=== PATIENT | male | born 1950 | race Caucasian/White ===

== ENCOUNTER 2017-07-06 09:28 | Inpatient (IN) | payer MEDICAID, OTHER ==
[~2017-07-06] VITALS: Ht 172.7 cm; Wt 75.1 kg
[2017-07-06] MEDS ORDERED: ALBUTEROL 0.5% (NEB) 2.5 MG/0.5 ML AMP INH STA (09:35)
[2017-07-06] MEDS ORDERED: SOD CHLORIDE 0.9% 1,000 ML IV STA (09:35)
[2017-07-06] MEDS ORDERED: IPRATROPIUM (NEB) 0.5 MG/2.5 ML AMP INH STA (09:35)
[2017-07-06] MEDS ORDERED: METHYLPREDNISOLONE 125 MG INJ IV STA (09:35)
[2017-07-06 09:47] LABS: ABNORMAL IP MESSAGE 1; BASOPHIL # 0.1 10^3/ul (0.0-0.1); BASOPHILS % 0.5 % (0.0-2.0); EOSINOPHILS # 0.2 10^3/ul (0.0-0.5); EOSINOPHILS % 2.1 % (0.0-7.0); HEMATOCRIT 48.1 % (42.0-52.0); HEMOGLOBIN 16.2 g/dl (14.0-18.0); LYMPHOCYTES # 5.9 10^3/ul (0.8-2.9); LYMPHOCYTES % 51.2 % (15.0-51.0); MEAN CORPUSCULAR HGB CONC 33.7 g/dl (32.0-37.0); MEAN CORPUSCULAR VOLUME 109.8 fl (82.0-101.0); MEAN PLATELET VOLUME 9.8 fl (7.4-10.4); MONOCYTES % 8.9 % (0.0-11.0); NEUTROPHIL # 4.3 10^3/ul (1.6-7.5); PLATELET COUNT 312 10^3/UL (140-415); POSITIVE DIFF @See below; RED BLOOD COUNT 4.38 10^6/ul (4.70-6.10); RED CELL DISTRIBUTION WIDTH 12.9 % (11.5-14.5); WHITE BLOOD COUNT 11.6 10^3/ul (4.8-10.8)
[2017-07-06] MEDS ORDERED: LORAZEPAM 2 MG INJ IV ONE (10:00)
[2017-07-06 10:03] LABS: AADO2 Arterial 466.7 mmHg (7.0-24.0); Allen Test ACCEPTAB; Arterial Base Excess -5.6 mmol/L (-3.0-3); Arterial COHb 0.6 % (0.0-3.0); Arterial Fraction of Oxyhgb 97.9 % (93.0-99.0); Arterial HCO3 22.5 mmol/L (22.0-26.0); Arterial MetHb 0.3 % (0.0-1.5); Arterial Total Hemglobin 15.8 g/dl (12.0-18.0); Blood Gas IEPAP 15/5; Blood Gas PS 10; MODE MASK - BIPAP
[2017-07-06 10:04] LABS: INR 1.03; PARTIAL THROMBOPLASTIN TIME 26.4 Sec (25.0-35.0); PROTIME 13.5 Sec (12.2-14.2); PT RATIO 1.1
[2017-07-06] MEDS ORDERED: ONDANSETRON 4 MG INJ IV STA (10:04)
[2017-07-06] MEDS ORDERED: morphine 4 MG/ML VIAL IV STA (10:04)
[2017-07-06] MEDS ORDERED: ASPIRIN 325 MG TAB PO STA (10:04)
[2017-07-06 10:12] LABS: ALBUMIN 3.4 g/dl (3.3-4.9); BILIRUBIN,INDIRECT 0.5 mg/dl (0-1.1); BILIRUBIN,TOTAL 0.5 mg/dl (0.2-1.3); CALCIUM 8.7 mg/dl (8.4-10.2); CREATININE 0.89 mg/dl (0.61-1.24); POTASSIUM 3.3 mmol/L (3.5-5.1); TOTAL PROTEIN 6.8 g/dl (6.1-8.1)
[2017-07-06 10:25] LABS: CK-MB 1.56 ng/ml (0.0-2.4); TROPONIN-I 3.13 ng/ml (0.00-0.12)
--- NOTE | 2017-07-06 10:28 | RADRPT ---
PROCEDURE: XR Chest. CLINICAL INDICATION: Asthma exacerbation . TECHNIQUE: Single frontal chest x-ray. COMPARISON: None. FINDINGS: There is diffuse bilateral interstitial prominence . There is no alveolar infiltrates, edema, or eff usions. Calcific atherosclerosis of the aorta is present. .. The heart is upper limit of normal in size.. The osseous structures are intact. IMPRESSION: Diffuse bilateral interstitial prominence. Differential includes interstitial edema, viral or atypic al pneumonitis, chronic interstitial changes. Recommend follow-up.. RPTAT: GG .Dean Dickens MD, MD Date Time Electronically viewed and signed by .Dean Dickens MD, MD on 07/06/2017 10:27 .L/
[2017-07-06] MEDS ORDERED: METOPROLOL 5 MG INJ IV ONE (11:00)
--- NOTE | 2017-07-06 11:22 | ERA ---
ER Documentation Chief Complaint Date/Time DATE: 07/06/17 TIME: 11:11 Chief Complaint SOB HPI This is a very pleasant 67-year-old male that presents to the emergency department brought in by EMS in severe respiratory distress. The patient indicated his symptoms started several hours prior to arrival progressively started to worsen. The patient does smoke tobacco and has a history of COPD. He has never required intubation in the past. He has had no fevers or shaking or chills. He denies a productive or nonproductive cough. He also indicates he has a history of coronary artery disease and has been told in the past that he will require surgical intervention. EMS indicated that the patient was diaphoretic unable to speak more than several words at a time before becoming short of breath and was placed on CPAP with minimal improvement of his symptoms. He also indicates that for the past 2 days he has been having intermittent left substernal chest pain. The pain does not radiate to the neck or back or jaw. There is no alleviating or exacerbating factors to the chest discomfort. ROS All systems reviewed and are negative except as per history of present illness. Medications Home Meds No Active Prescriptions or Reported Meds Allergies Allergies: Coded Allergies: No Known Allergy (Unverified , 07/06/17) PMhx/Soc Hx Respiratory Disorders: Yes (COPD) Hx Cardiac Disorders: Yes (HX IL) Hx Psychiatric Problems: No Hx Miscellaneous Medical Probl: No Hx Alcohol Use: No Hx Substance Use: No Hx Tobacco Use: Yes Smoking Status: Never smoker Physical Exam Vitals Vital Signs Date Time Temp Pulse Resp B/P Pulse Ox O2 Delivery O2 Flow Rate FiO2 07/06/17 11:06 104 93 28 07/06/17 09:53 Nasal Cannula 07/06/17 09:48 133 100 28 07/06/17 09:36 98.0 140 22 160/110 100 Physical Exam Constitutional:Well-developed. Well-nourished. Patient in severe respiratory distress HEENT:Normocephalic. Atraumatic.Pupils were equal round reactive to light. Moist mucous membranes.No tonsillar exudates. Neck: No nuchal rigidity. No lymphadenopathy. No posterior cervical spine tenderness or step-offs. Respiratory: Patient using accessory muscles of respiration. Unable to speak more than 2 words at a time before becoming short of breath. Decreased breath sounds heard bilaterally. Cardiovascular: Regular rate regular rhythm.No murmurs. No rubs were appreciated.S1, S2 normal. Distal pulses are palpable 2+ bilaterally. GI: Abdomen was soft. Nontender. Non Distended. No pulsatile abdominal masses or bruits. No rebound. No guarding. Bowel sounds were present and normal. Muscle skeletal: Full range of motion of both the upper and lower extremities bilaterally.Normal muscle tone.No assymetrical calf tenderness or swelling. Skin: No petechia, no purpura. No lesions on the palms or the soles of the feet. No maculopapular rash. NEURO: Patient was alert, awake, orientated x3.No facial droop. Gait observed and normal with no ataxia.Speech had regular rate and rhythm. No focal neurological deficits. Result Diagram: 07/06/1793507/06/1736 Results 24 hrs Laboratory Tests Test 07/06/17 09:35 07/06/17 09:36 Blood Gas Specimen Source Blood arterial Arterial Blood Date Drawn 07/06/2017 9:52:10 AM Arterial Blood pH (Temp corrected) 7.239 Arterial Blood pCO2 (Temp correct) 53.9mmhg Arterial Blood pO2 (Temp corrected) 192.4mmHG Arterial Blood HCO3 22.5mmol/L Arterial Blood Base Excess -5.6mmol/L Arterial Blood Oxygen Saturation 98.8mmHG Denis Test ACCEPTAB Arterial Blood Gas Puncture Site Right Radial Arterial Blood Carboxyhemoglobin 0.6% Arterial Blood Methemoglobin 0.3% Blood Gas A-a O2 Differential 466.7mmHg Oxyhemoglobin Percent 97.9% Total Hemoglobin 15.8g/dl Blood Gas Temperature 37.0C Blood Gas Respiration Rate 12.0 Blood Gas Actual Respiration Rate 37 Blood Gas Modality MASK - BIPAP FiO2 100.0% Blood Gas Pressure Support 10 Blood Gas IPAP/EPAP Ratio 15/5 Blood Gas Critical Value Read Back DR. LOFTON Blood Gas Notified Whom Domi Blood Gas Notified Time 07/06/2017 10:03:22 AM White Blood Count 11.610^3/ul Red Blood Count 4.3810^6/ul Hemoglobin 16.2g/dl Hematocrit 48.1% Mean Corpuscular Volume 109.8fl Mean Corpuscular Hemoglobin 37.0pg Mean Corpuscular Hemoglobin Concent 33.7g/dl Red Cell Distribution Width 12.9% Platelet Count 37108^3/UL Mean Platelet Volume 9.8fl Neutrophils % 37.0% Lymphocytes % 51.2% Monocytes % 8.9% Eosinophils % 2.1% Basophils % 0.5% Nucleated Red Blood Cells % 0.0/100WBC Neutrophils # 4.310^3/ul Lymphocytes # 5.910^3/ul Monocytes # 1.010^3/ul Eosinophils # 0.210^3/ul Basophils # 0.110^3/ul Nucleated Red Blood Cells # 0.010^3/ul Prothrombin Time 13.5Sec Prothrombin Time Ratio 1.1 INR International Normalized Ratio 1.03 Activated Partial Thromboplast Time 26.4Sec Sodium Level 141mmol/L Potassium Level 3.3mmol/L Chloride Level 105mmol/L Carbon Dioxide Level 28mmol/L Anion Gap 11 Blood Urea Nitrogen 7mg/dl Creatinine 0.89mg/dl Glucose Level 196mg/dl Calcium Level 8.7mg/dl Total Bilirubin 0.5mg/dl Direct Bilirubin 0.00mg/dl Indirect Bilirubin 0.5mg/dl Aspartate Amino Transf (AST/SGOT) 42IU/L Alanine Aminotransferase (ALT/SGPT) 37IU/L Alkaline Phosphatase 78IU/L Creatine Kinase 42IU/L Creatine Kinase Index 3.7 Creatinine Kinase MB (Mass) 1.56ng/ml Troponin I 3.130ng/ml B-Type Natriuretic Peptide 3240PG/ML Total Protein 6.8g/dl Albumin 3.4g/dl Globulin 3.40g/dl Albumin/Globulin Ratio 1.00 Current Medications Medications (Trade) Dose Ordered Sig/Karyn Route PRN Reason Start Time Stop Time Status Last Admin Dose Admin Sodium Chloride (NS) 1,000 ml @ 1,000 mls/hr Q1H STAT IV 07/06/17 09:35 07/06/17 10:34 DC 07/06/17 09:45 Albuterol (Proventil 0.5% (Neb)) 10 mg ONCE STAT INH 07/06/17 09:35 07/06/17 09:38 DC 07/06/17 09:47 Ipratropium [place] (Atrovent 0.02% (Neb)) 1 mg ONCE STAT INH 07/06/17 09:35 07/06/17 09:38 DC 07/06/17 09:47 Methylprednisolone Sodium Succinate (Solu-Medrol) 125 mg ONCE STAT IV 07/06/17 09:35 07/06/17 09:38 DC 07/06/17 09:39 Lorazepam (Ativan) 1 mg ONCE ONCE IV 07/06/17 10:00 07/06/17 10:01 DC 07/06/17 09:39 Morphine Sulfate (morphine) 4 mg ONCE STAT IV 07/06/17 10:04 07/06/17 10:05 DC 07/06/17 10:08 Ondansetron HCl (Zofran Inj) 4 mg ONCE STAT IV 07/06/17 10:04 07/06/17 10:05 DC 07/06/17 10:08 Aspirin (Aspirin) 325 mg ONCE STAT PO 07/06/17 10:04 07/06/17 10:05 DC 07/06/17 10:08 Nitroglycerin (Nitroglycerin (Sl Tab) 0.4 Mg) 1 tab Q5M UP TO 3 DOSES PRN SL CHEST PAIN 07/06/17 10:30 Metoprolol Tartrate (Lopressor) 5 mg ONCE ONCE IV 07/06/17 11:00 07/06/17 11:01 DC 07/06/17 10:50 Procedures/MDM The patient presented to the emergency department with shortness of breath. My differential diagnosis included but was not limited to upper airway obstruction , CHF, pulmonary embolism, cardiac ischemia, pneumonia, pneumothorax, anemia, drug overdose, pulmonary edema, COPD or asthma. The patient was placed on a cardiac catheterization technologist continuous pulse oximetry and IV access was established by nursing staff. The patient was in severe respiratory distress and immediately was placed on noninvasive mechanical ventilation on a BiPAP. An arterial blood gas was obtained and the patient had severe respiratory acidosis. Patient was placed on continuous nebulizer treatments of albuterol Atrovent given 125 mg of Solu-Medrol. After being placed on BiPAP the patient's respiratory distress has significantly improved he was no longer using accessory muscles of respiration. One view chest radiograph ordered and reviewed by myself showed no infiltrates no pneumothorax or pleural effusions. The patient has hyperinflation consistent with COPD. 12 Lead EKG tracing ordered and reviewed by myself showed at 9:36am: Sinus tachycardia 141 bpm and no arrhythmia. AK interval normal. QRS duration normal. Ventricular hypertrophy. ST segment depression in the lateral leads. Q waves present in the inferior leads II, III and aVF No ST segment elevation No ST segment depression. No changes consistent with acute ischemia. The patient ancillary laboratory work had returned and indicate the patient had elevation of his troponin at 3.01. At this time I did repeat the EKG. The patient had received aspirin and nitroglycerin at this time. Stated his chest pain had improved but did not completely resolve and therefore was given to venous morphine and Zofran. Also been given Ativan when he initially arrived as he appeared very anxious attempting to remove the BiPAP which was thought to be secondary to the patient's hypoxia and once the patient's respiratory distress improved so did the patient's agitation. 12 Lead EKG tracing ordered and reviewed by myself showed: Tachycardia of 129 bpm and no arrhythmia. AK interval normal. QRS duration normal. Left ventricular hypertrophy. ST segment depression in the lateral leads. Q waves present in inferior leads No ST segment elevation No ST segment depression. No changes consistent with acute ischemia. Also spoke with the copper tapper Dr. Hogan. He was in agreement that this patient does not meet criteria to go to the [facility]. The patient at this time was given a beta-aroldo for rate control which did improve the patient's sinus tachycardia. Patient will be admitted in serious condition to the hospitalist to the ICU in serious condition with an anticipated stay of greater than 2 midnights. Critical Care: Time: 60 minutes Treatments/Evaluations: Close monitoring and treatment of unstable vital signs, cardiorespiratory, and neurologic status, while maintaining tight balance of fluid, respiratory, and cardiac interventions. Time does not include performing any of the above billable procedures. Departure Diagnosis: Primary Impression: COPD exacerbation Additional Impressions: Respiratory acidosis Non-STEMI (non-ST elevated myocardial infarction) Condition: Serious LIA LOFTON Jul 06, 2017 11:21
[2017-07-06] MEDS ORDERED: HEPARIN 25000 UNITS/250 ML 250 ML IV SCH (12:00)
[2017-07-06] MEDS ORDERED: HEPARIN 1000 UNITS/ML 10 ML INJ IV PRN (12:00)
[2017-07-06] MEDS ORDERED: HEPARIN 1000 UNITS/ML 10 ML INJ IV ONE (12:00)
[2017-07-06] MEDS: HEPARIN 25000 UNITS/250 ML 250 ML IV SCH (13:11)
[2017-07-06] MEDS ORDERED: hydrALAzine 20 MG INJ IV PRN ×2 (13:30→15:00)
--- NOTE | 2017-07-06 13:36 | CONS ---
Date/Time of Note Date/Time of Note DATE: 07/06/17 TIME: 13:30 Assessment/Plan Assessment/Plan Chief Complaint/Hosp Course 1) Chest pain 2) NSTEMI contributed by COPD and HTN out of control 3) COPD 4) Nonadherence 5) HTN Problems: Additional Assessment/Plan 1) Echo 2) ASA, statin 3) beta aroldo, ARB 4) hydralazine prn 5) Nitropaste 6) Echo, EKG 7) Serial troponin 8) Will consider cath however, interventional strategies are detrimental in the absence of accompanying appropriate medical therapy and follow up councelled patient and patient's sister in detail. Consultation Date/Type/Reason Admit Date/Time Date of Consultation: Jul 06, 2017 Type of Consultation: cv Reason for Consultation myocardial infarction Hx of Present Illness patient admitted in respiratory distress with chest pain, pressure, mid chest, no radiation, persistent found to have elevated troponins. Patient does not follow MD, does not have or take meds. Has been told in the past to follow PCP and to take meds which he does not. Currently mild chest pain, no distress, sister at the bedside. ENT: no complaints Respiratory: shortness of breath Cardiovascular: chest pain Gastrointestinal: no complaints Genitourinary: no complaints Musculoskeletal: no complaints Neurologic: no complaints Endocrine: no complaints Past Medical History Medical History: coronary artery disease, hypertension, other (COPD) Past Surgical History Past Surgical Hx: no surgical history Family History Significant Family History: hypertension Social History Alcohol Use: other Smoking Status: Never smoker Drug Use: other Exam/Review of Systems Vital Signs Vitals Vital Signs Date Time Temp Pulse Resp B/P Pulse Ox O2 Delivery O2 Flow Rate FiO2 07/06/17 13:14 98 112/82 07/06/17 11:06 93 28 07/06/17 09:53 Nasal Cannula 07/06/17 09:36 98.0 22 Exam Constitutional: alert Head: atraumatic, normocephalic Neck: supple Respiratory: clear to auscultation Cardiovascular: regular rate and rhythm Musculoskeletal: nl extremities to inspection Extremities: normal pulses Neurological: CLINIC ASSISTANT II-XII intact Results Result Diagram: 07/06/17 0936 07/06/17 0936 Results 24 hrs Laboratory Tests Test 07/06/17 09:35 07/06/17 09:36 Blood Gas Specimen Source Blood arterial Arterial Blood Date Drawn 07/06/2017 9:52:10 AM Arterial Blood pH (Temp corrected) 7.239 *L Arterial Blood pCO2 (Temp correct) 53.9 H Arterial Blood pO2 (Temp corrected) 192.4 H Arterial Blood HCO3 22.5 Arterial Blood Base Excess -5.6 L Arterial Blood Oxygen Saturation 98.8 H Denis Test ACCEPTAB Arterial Blood Gas Puncture Site Right Radial Arterial Blood Carboxyhemoglobin 0.6 Arterial Blood Methemoglobin 0.3 Blood Gas A-a O2 Differential 466.7 H Oxyhemoglobin Percent 97.9 Total Hemoglobin 15.8 Blood Gas Temperature 37.0 Blood Gas Respiration Rate 12.0 Blood Gas Actual Respiration Rate 37 Blood Gas Modality MASK - BIPAP FiO2 100.0 Blood Gas Pressure Support 10 Blood Gas IPAP/EPAP Ratio 15/5 Blood Gas Critical Value Read Back DR. LOFTON Blood Gas Notified Whom Domi Blood Gas Notified Time 07/06/2017 10:03:22 AM White Blood Count 11.6 H Red Blood Count 4.38 L Hemoglobin 16.2 Hematocrit 48.1 Mean Corpuscular Volume 109.8 H Mean Corpuscular Hemoglobin 37.0 H Mean Corpuscular Hemoglobin Concent 33.7 Red Cell Distribution Width 12.9 Platelet Count 312 Mean Platelet Volume 9.8 Neutrophils % 37.0 L Lymphocytes % 51.2 H Monocytes % 8.9 Eosinophils % 2.1 Basophils % 0.5 Nucleated Red Blood Cells % 0.0 Neutrophils # 4.3 Lymphocytes # 5.9 H Monocytes # 1.0 H Eosinophils # 0.2 Basophils # 0.1 Nucleated Red Blood Cells # 0.0 Prothrombin Time 13.5 Prothrombin Time Ratio 1.1 INR International Normalized Ratio 1.03 Activated Partial Thromboplast Time 26.4 Sodium Level 141 Potassium Level 3.3 L Chloride Level 105 Carbon Dioxide Level 28 Anion Gap 11 Blood Urea Nitrogen 7 Creatinine 0.89 Glucose Level 196 Calcium Level 8.7 Total Bilirubin 0.5 Direct Bilirubin 0.00 Indirect Bilirubin 0.5 Aspartate Amino Transf (AST/SGOT) 42 Alanine Aminotransferase (ALT/SGPT) 37 Alkaline Phosphatase 78 Creatine Kinase 42 Creatine Kinase Index 3.7 Creatinine Kinase MB (Mass) 1.56 Troponin I 3.130 *H B-Type Natriuretic Peptide 3240 H Total Protein 6.8 Albumin 3.4 Globulin 3.40 H Albumin/Globulin Ratio 1.00 Procedures Procedures EKG: SR, nonspecific ST changes KUPFERWASSER,SHAI I. MD Jul 06, 2017 13:36
--- NOTE | 2017-07-06 14:05 | RADRPT ---
Echocardiogram Report Patient Name: DARYN ARREGUIN Gender: Male Date: 1950 Study Date: 06-Jul-2017 Lens Blank Gauger: [facility] Location: [facility] Ref. Physician: JULIO CÉSAR MATA Quality: Adequate Procedures: Transthoracic echocardiogram with complete 2D, M-Mode, and doppler examination. Indications: Elevated Troponin. 2D/M Mode Doppler Measurement Value Normal Ranges Measurement Value Normal Ranges LVIDd 2D 5.1 3.5 - 5.6 cm AV Peak Collins 1.3 m/sec LVIDs 2D 4.1 2.1 - 4.1 cm AV Peak PG 6.3 mmHg LVPWd 2D 1.2 0.6 - 1.1 cm AI Peak PG 67.6 mmHg IVSd 2D 1.2 0.6 - 1.1 cm AI Peak Collins 4.1 m/sec AoR Diam 2D 2.3 2.0 - 3.7 cm AI PHT 424.8 msec EDV 2D 121.5 cm3 LVOT Peak Collins 0.8 m/sec ESV 2D 71.3 cm3 LVOT Peak PG 2.8 mmHg LA Dimen 2D 3.6 2.3 - 4.0 cm MV E Peak Collins 1.0 m/sec MV A Peak Collins 0.6 m/sec MV E/A 1.7 MV Decel Time 147 msec MV Decel [place] 7 MV E/A 1.7 TR Peak Collins 3.1 m/sec TR Peak PG 39.3 mmHg RVSP 47.0 mmHg Findings Left Ventricle: Mild concentric left ventricular hypertrophy. Moderate enlargement of left ventricle cavity. Severe global left ventricular systolic dysfunction. Ejection fraction is visually estimated at 15 %. Abnormal Diastolic Function. Right Ventricle: Normal right ventricular size. Normal right ventricular systolic function. Left Atrium: The left atrium is normal in size. Right Atrium: The right atrium is normal in size. Mitral Valve: Mild mitral leaflet calcification. Mild mitral annular calcification. Mild mitral valve regurgitation. Aortic Valve: Aortic sclerosis without stenosis. Mild to moderate aortic valve regurgitation. Tricuspid Valve: Normal appearance of the tricuspid valve. Estimated peak PA systolic pressure 47 mmHg. There is mild tricuspid regurgitation. Pulmonic Valve: Pulmonic valve not well visualized. There is trace pulmonic regurgitation. Pericardium: Normal pericardium with no significant pericardial effusion. Aorta: Normal aortic root. IVC: Normal size with poor respiratory collapse consistent with elevated right atrial pressure. Conclusions 1.Mild concentric left ventricular hypertrophy. Moderate enlargement of left ventricle cavity. Severe global left ventricular systolic dysfunction. Ejection fraction is visually estimated at 15 %. Abnormal Diastolic Function. 2.Pulmonic valve not well visualized. There is trace pulmonic regurgitation. 3.Normal size with poor respiratory collapse consistent with elevated right atrial pressure. 4.Normal right ventricular size. Normal right ventricular systolic function. 5.The left atrium is normal in size. 6.The right atrium is normal in size. 7.Mild mitral leaflet calcification. Mild mitral annular calcification. Mild mitral valve regurgitation. 8.Aortic sclerosis without stenosis. Mild to moderate aortic valve regurgitation. 9.Normal appearance of the tricuspid valve. Estimated peak PA systolic pressure 47 mmHg. There is mild tricuspid regurgitation. Electronically Signed By: Andrea Noble 06-Jul-2017 14:04:27 -0700 Patient Name: DARYN ARREGUIN Study Date: 06-Jul-2017 [id number]
[2017-07-06] MEDS ORDERED: NITROGLYCERIN 2% 1 GM OINT PKT TD ONE (14:30)
[2017-07-06] MEDS ORDERED: METOPROLOL 25 MG TAB PO ONE (15:00)
[2017-07-06] MEDS ORDERED: LOSARTAN 25 MG TAB PO ONE (15:00)
[2017-07-06] MEDS ORDERED: ASPIRIN (EC) 81 MG TAB PO ONE (15:00)
[2017-07-06] MEDS: METOPROLOL 25 MG TAB PO SCH (15:00)
[2017-07-06] MEDS ORDERED: ATORVASTATIN 40 MG TAB PO ONE (15:00)
[2017-07-06] MEDS: LOSARTAN 25 MG TAB PO SCH (15:26)
[2017-07-06] MEDS: ATORVASTATIN 40 MG TAB PO SCH (15:27)
[2017-07-06] MEDS: NITROGLYCERIN 2% 1 GM OINT PKT TD SCH (15:35)
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
[2017-07-06] MEDS ORDERED: LABETALOL HCL 20MG INJ IV PRN (16:30)
[2017-07-06] MEDS ORDERED: ONDANSETRON 4 MG INJ IV PRN (16:30)
[2017-07-06] MEDS ORDERED: DIAZEPAM 5 MG TAB PO PRN (16:30)
[2017-07-06] MEDS ORDERED: LORAZEPAM 2 MG INJ IV PRN (16:30)
[2017-07-06] MEDS ORDERED: morphine 2 MG INJ IV PRN (16:30)
[2017-07-06] MEDS ORDERED: NACL 0.9% 3 ML SYG IV SCH (16:30)
[2017-07-06] MEDS: NICOTINE (14 MG/24 HR) PATCH TRANSDERM SCH (17:00)
[2017-07-06 19:59] LABS: ABNORMAL IP MESSAGE 1; HEMATOCRIT 43.2 % (42.0-52.0); HEMOGLOBIN 14.7 g/dl (14.0-18.0); MEAN CORPUSCULAR HEMOGLOBIN 36.8 pg (29.0-33.0); MEAN CORPUSCULAR VOLUME 108.3 fl (82.0-101.0); MEAN PLATELET VOLUME 9.9 fl (7.4-10.4); PLATELET COUNT 242 10^3/UL (140-415); POSITIVE DIFF @See below; RED BLOOD COUNT 3.99 10^6/ul (4.70-6.10); RED CELL DISTRIBUTION WIDTH 12.9 % (11.5-14.5); WHITE BLOOD COUNT 5.6 10^3/ul (4.8-10.8)
[2017-07-06 20:16] LABS: INR 1.1; PROTIME 14.2 Sec (12.2-14.2); PT RATIO 1.1
[2017-07-06 20:17] LABS: PARTIAL THROMBOPLASTIN TIME 39.2 Sec (25.0-35.0)
[2017-07-06] MEDS: NITROGLYCERIN (SL) 0.4 MG TAB SL PRN (20:34)
[2017-07-06 20:41] VITALS: PULSE 88
[2017-07-06 20:58] LABS: GIANT THROMBO% (M) 2 % (0-0); MONOCYTES % (M) 3 % (0-11); PLATELET ESTIMATE NORMAL
[2017-07-06 21:20] LABS: AADO2 Arterial 91.3 mmHg (7.0-24.0); Arterial COHb 0.3 % (0.0-3.0); Arterial Fraction of Oxyhgb 95.5 % (93.0-99.0); Arterial HCO3 21.7 mmol/L (22.0-26.0); Arterial MetHb 0.2 % (0.0-1.5); Arterial Total Hemglobin 15.3 g/dl (12.0-18.0); MODE NASAL CANNULA
[2017-07-06 23:13] VITALS: Ht 172.7 cm; Wt 75.1 kg
[2017-07-07] VITALS (12 sets, daily range): BP systolic 95–120; BP diastolic 60–87; PULSE 83–95; RESP 16–22
[2017-07-07] MEDS: METOPROLOL 25 MG TAB PO SCH ×3 (01:20→20:09)
[2017-07-07 02:06] LABS: INR 1.08; PT RATIO 1.1
[2017-07-07 02:07] LABS: PARTIAL THROMBOPLASTIN TIME 32.4 Sec (25.0-35.0)
[2017-07-07] MEDS: HEPARIN 25000 UNITS/250 ML 250 ML IV SCH ×2 (02:54→10:05)
[2017-07-07] MEDS ORDERED: HEPARIN 1000 UNITS/ML 10 ML INJ IV ONE (03:00)
[2017-07-07] MEDS: PANTOPRAZOLE 40 MG INJ IV SCH (06:05)
[2017-07-07] MEDS: NITROGLYCERIN (SL) 0.4 MG TAB SL PRN (06:08)
[2017-07-07 07:32] LABS: ALBUMIN 2.9 g/dl (3.3-4.9); ALBUMIN/GLOBULIN RATIO 1.11; BILIRUBIN,INDIRECT 0.8 mg/dl (0-1.1); BILIRUBIN,TOTAL 0.8 mg/dl (0.2-1.3); CHOL/HDL RATIO 2.7 RATIO; CREATININE 0.89 mg/dl (0.61-1.24); POTASSIUM 4.1 mmol/L (3.5-5.1); TOTAL PROTEIN 5.5 g/dl (6.1-8.1)
[2017-07-07] MEDS: LOSARTAN 25 MG TAB PO SCH (09:30)
[2017-07-07] MEDS: ATORVASTATIN 40 MG TAB PO SCH (09:32)
[2017-07-07] MEDS: NICOTINE (14 MG/24 HR) PATCH TRANSDERM SCH (09:33)
[2017-07-07] MEDS: NITROGLYCERIN 2% 1 GM OINT PKT TD SCH (09:36)
[2017-07-07] MEDS: ASPIRIN (EC) 81 MG TAB PO SCH (09:39)
[2017-07-07] MEDS ORDERED: ALBUTEROL/IPRATROPIUM (NEB) 3 ML AMP HHN PRN (11:00)
[2017-07-07 11:48] LABS: INR 1.05; PROTIME 13.7 Sec (12.2-14.2); PT RATIO 1.1
--- NOTE | 2017-07-07 11:53 | PN ---
Date/Time of Note Date/Time of Note DATE: 07/07/17 TIME: 11:51 Assessment/Plan VTE Prophylaxis VTE Prophylaxis Intervention: SCD's Lines/Catheters IV Catheter Type (from Nrsg): Peripheral IV Assessment/Plan Assessment/Plan 1) Chest pain 2) NSTEMI contributed by COPD and HTN out of control 3) COPD 4) Nonadherence 5) HTN Problems: Additional Assessment/Plan 2) ASA, statin 3) beta aroldo, ARB 4) hydralazine prn 5) Nitropaste 6) Echo 7) Serial troponin 8) Will consider cath however, interventional strategies are detrimental in the absence of accompanying appropriate medical therapy and follow up councelled patient and patient's sister in detail. At this time, medical therapy if remains stable without symptoms. must fu as ouptatient Subjective 24 Hr Interval Summary Free Text/Dictation the patient with no angina or chf Exam/Review of Systems Vital Signs Vitals Vital Signs Date Time Temp Pulse Resp B/P Pulse Ox O2 Delivery O2 Flow Rate FiO2 07/07/17 11:10 98.0 95 22 113/72 95 07/07/17 10:49 Nasal Cannula 4.0 07/06/17 11:06 28 Results Result Diagram: 07/06/17 1942 07/07/17 0635 Results 24 hrs Laboratory Tests Test 07/06/17 19:42 07/06/17 20:30 07/07/17 00:34 07/07/17 01:17 White Blood Count 5.6 # Red Blood Count 3.99 L Hemoglobin 14.7 Hematocrit 43.2 Mean Corpuscular Volume 108.3 H Mean Corpuscular Hemoglobin 36.8 H Mean Corpuscular Hemoglobin Concent 34.0 Red Cell Distribution Width 12.9 Platelet Count 242 # Mean Platelet Volume 9.9 Neutrophils % Segmented Neutrophils % (Manual) 87 H Lymphocytes % Lymphocytes % (Manual) 10 L Monocytes % Monocytes % (Manual) 3 Nucleated Red Blood Cells % 0.0 Neutrophils # Absolute Lymphocytes (Manual) 0.5 L Lymphocytes # Monocytes # Absolute Monocytes (Manual) 0.1 L Platelet Estimate NORMAL Giant Platelets 2 H Prothrombin Time 14.2 14.0 Prothrombin Time Ratio 1.1 1.1 INR International Normalized Ratio 1.10 1.08 Activated Partial Thromboplast Time 39.2 H 32.4 Troponin I 4.010 *H 4.490 *H Blood Gas Specimen Source Blood arterial Arterial Blood Date Drawn 07/06/2017 9:00:04 PM Arterial Blood pH (Temp corrected) 7.417 Arterial Blood pCO2 (Temp correct) 34.5 L Arterial Blood pO2 (Temp corrected) 82.1 Arterial Blood HCO3 21.7 L Arterial Blood Base Excess -2.0 Arterial Blood Oxygen Saturation 96.0 Denis Test N/A Arterial Blood Gas Puncture Site LB Arterial Blood Carboxyhemoglobin 0.3 Arterial Blood Methemoglobin 0.2 Blood Gas A-a O2 Differential 91.3 H Oxyhemoglobin Percent 95.5 Total Hemoglobin 15.3 Blood Gas Temperature 37.0 Blood Gas Actual Respiration Rate 18 Blood Gas Modality NASAL CANNULA FiO2 30.0 Blood Gas Notified Whom MG Blood Gas Notified Time 07/06/2017 9:20:19 PM Test 07/07/17 06:35 07/07/17 10:54 Sodium Level 139 Potassium Level 4.1 Chloride Level 108 Carbon Dioxide Level 28 Anion Gap 7 L Blood Urea Nitrogen 14 Creatinine 0.89 Glucose Level 107 # Calcium Level 8.0 L Total Bilirubin 0.8 Direct Bilirubin 0.00 Indirect Bilirubin 0.8 Aspartate Amino Transf (AST/SGOT) 45 Alanine Aminotransferase (ALT/SGPT) 36 Alkaline Phosphatase 55 Total Protein 5.5 #L Albumin 2.9 L Globulin 2.60 Albumin/Globulin Ratio 1.11 Triglycerides Level 69 Cholesterol Level 79 L LDL Cholesterol, Calculated 36 HDL Cholesterol 29 L Cholesterol/HDL Ratio 2.7 Prothrombin Time 13.7 Prothrombin Time Ratio 1.1 INR International Normalized Ratio 1.05 Activated Partial Thromboplast Time Pending Medications Medications Current Medications Aspirin (Halfprin) 81 mg DAILY PO Last administered on 07/07/17 09:39; Admin Dose 81 MG; Start 07/07/17 at 09:00 Atorvastatin Calcium (Lipitor) 40 mg DAILY PO Last administered on 07/07/17 09 :32; Admin Dose 40 MG; Start 07/06/17 at 15:00 Hydralazine HCl (Apresoline) 20 mg Q6H PRN IV prn SBP > 160; Start 07/06/17 at 15:00 Metoprolol Tartrate (Lopressor) 25 mg BID PO Last administered on 07/07/17 09: 32; Admin Dose 25 MG; Start 07/06/17 at 15:00 Losartan Potassium (Cozaar) 25 mg DAILY PO Last administered on 07/07/17 09:30 ; Admin Dose 25 MG; Start 07/06/17 at 15:00 Nitroglycerin (Nitroglycerin 2% Oint) 0.5 inch DAILY TD Last administered on 09:36; Admin Dose 0.5 INCH; Start 07/06/17 at 15:00 Ondansetron HCl (Zofran Inj) 4 mg Q6H PRN IV NAUSEA AND/OR VOMITING; Start at 16:30 Morphine Sulfate (morphine) 2 mg Q4H PRN IV SEVERE PAIN LEVEL 7-10; Start 07/06 at 16:30 Pantoprazole (Protonix Iv) 40 mg DAILY@06 IV Last administered on 07/07/17 06: 05; Admin Dose 40 MG; Start 07/07/17 at 06:00 Lorazepam (Ativan) 2 mg Q10MIN PRN IV seizure; Start 07/06/17 at 16:30 Diazepam (Valium) 5 mg Q6H PRN PO ANXIETY; Start 07/06/17 at 16:30 Labetalol HCl (Labetalol) 10 mg Q2 PRN IV SBP>160; Start 07/06/17 at 16:30 Nicotine (Nicoderm 14 Mg/ 24hr) 1 patch DAILY TRANSDERM Last administered on 09:33; Admin Dose 1 PATCH; Start 07/06/17 at 17:00 Influenza Virus Vaccine (Fluzone) 0.5 ml ONCE ONCE IM* ; Start 07/08/17 at 09:00 ; Stop 07/08/17 at 09:01 SVITLANA MUNGUIA MD Jul 07, 2017 11:53
[2017-07-07 12:15] LABS: PARTIAL THROMBOPLASTIN TIME 35.1 Sec (25.0-35.0)
[2017-07-07] MEDS: ALBUTEROL/IPRATROPIUM (NEB) 3 ML AMP HHN SCH ×2 (14:09→20:14)
--- NOTE | 2017-07-07 17:48 | PN ---
Date/Time of Note Date/Time of Note DATE: 07/07/17 TIME: 17:46 Assessment/Plan VTE Prophylaxis VTE Prophylaxis Intervention: heparin Lines/Catheters IV Catheter Type (from Nrs): Peripheral IV Assessment/Plan Chief Complaint/Hosp Course Patient is a 67-year-old male with a past medical history significant for COPD and coronary artery disease that is noncompliant who presents to [facility] for chest pain, found to have non-ST elevation DC Assessment Chest pain Non-ST elevation DC Acute respiratory failure, resolving Elevated troponin Respiratory acidosis Acute on chronic systolic heart failure, EF of 50% COPD Tobacco use Alcohol use Plan -Cardiology consulted, on heparin drip, echocardiogram shows systolic heart failure at EF of 50%. Recommended no cath for now given severe medical non- compliance. Cardiology discussed with patient and patient's siblings at bedside , all parties agree medical management is best. Will continue heparin until DC. -Currently doing well on nasal cannula, BiPAP as needed -Aspirin, heparin, beta-aroldo, DEYANIRA inhibitor, nitro as needed, statin -Pain control as needed -Nicotine patch -As needed Valium and as needed Ativan for seizures secondary to chronic alcohol use Problems: Subjective 24 Hr Interval Summary Free Text/Dictation no chest pain, no sob Exam/Review of Systems Vital Signs Vitals Vital Signs Date Time Temp Pulse Resp B/P Pulse Ox O2 Delivery O2 Flow Rate FiO2 07/07/17 16:45 92 07/07/17 15:13 97.4 20 112/77 95 07/07/17 14:32 4.0 07/07/17 14:14 Nasal Cannula 07/06/17 11:06 28 Exam Physical exam General: Patient is laying in bed and answers questions appropriately Mentation: Patient is alert and oriented 4, Head: Normocephalic atraumatic Eyes: EOMI, pupils reactive to light Neck: Supple, nontender, midline Respiratory: Clear to auscultation bilaterally Cardiovascular: regular rate, no obvious murmurs Gastrointestinal: non-tender to palpation, bowel sounds heard. midline surgical scar Neurological: Moves all extremities spontaneously Skin: No new skin lesions Results Result Diagram: 07/06/17 19407/07/17 0635 Results 24 hrs Laboratory Tests Test 07/06/17 19:42 07/06/17 20:30 07/07/17 00:34 07/07/17 01:17 White Blood Count 5.6 # Red Blood Count 3.99 L Hemoglobin 14.7 Hematocrit 43.2 Mean Corpuscular Volume 108.3 H Mean Corpuscular Hemoglobin 36.8 H Mean Corpuscular Hemoglobin Concent 34.0 Red Cell Distribution Width 12.9 Platelet Count 242 # Mean Platelet Volume 9.9 Neutrophils % Segmented Neutrophils % (Manual) 87 H Lymphocytes % Lymphocytes % (Manual) 10 L Monocytes % Monocytes % (Manual) 3 Nucleated Red Blood Cells % 0.0 Neutrophils # Absolute Lymphocytes (Manual) 0.5 L Lymphocytes # Monocytes # Absolute Monocytes (Manual) 0.1 L Platelet Estimate NORMAL Giant Platelets 2 H Prothrombin Time 14.2 14.0 Prothrombin Time Ratio 1.1 1.1 INR International Normalized Ratio 1.10 1.08 Activated Partial Thromboplast Time 39.2 H 32.4 Troponin I 4.010 *H 4.490 *H Blood Gas Specimen Source Blood arterial Arterial Blood Date Drawn 07/06/2017 9:00:04 PM Arterial Blood pH (Temp corrected) 7.417 Arterial Blood pCO2 (Temp correct) 34.5 L Arterial Blood pO2 (Temp corrected) 82.1 Arterial Blood HCO3 21.7 L Arterial Blood Base Excess -2.0 Arterial Blood Oxygen Saturation 96.0 Denis Test N/A Arterial Blood Gas Puncture Site LB Arterial Blood Carboxyhemoglobin 0.3 Arterial Blood Methemoglobin 0.2 Blood Gas A-a O2 Differential 91.3 H Oxyhemoglobin Percent 95.5 Total Hemoglobin 15.3 Blood Gas Temperature 37.0 Blood Gas Actual Respiration Rate 18 Blood Gas Modality NASAL CANNULA FiO2 30.0 Blood Gas Notified Whom MG Blood Gas Notified Time 07/06/2017 9:20:19 PM Test 07/07/17 06:35 07/07/17 10:54 07/07/17 12:40 Sodium Level 139 Potassium Level 4.1 Chloride Level 108 Carbon Dioxide Level 28 Anion Gap 7 L Blood Urea Nitrogen 14 Creatinine 0.89 Glucose Level 107 # Calcium Level 8.0 L Total Bilirubin 0.8 Direct Bilirubin 0.00 Indirect Bilirubin 0.8 Aspartate Amino Transf (AST/SGOT) 45 Alanine Aminotransferase (ALT/SGPT) 36 Alkaline Phosphatase 55 Total Protein 5.5 #L Albumin 2.9 L Globulin 2.60 Albumin/Globulin Ratio 1.11 Triglycerides Level 69 Cholesterol Level 79 L LDL Cholesterol, Calculated 36 HDL Cholesterol 29 L Cholesterol/HDL Ratio 2.7 Prothrombin Time 13.7 Prothrombin Time Ratio 1.1 INR International Normalized Ratio 1.05 Activated Partial Thromboplast Time 35.1 H Troponin I 5.270 *H Medications Medications Current Medications Aspirin (Halfprin) 81 mg DAILY PO Last administered on 07/07/17 09:39; Admin Dose 81 MG; Start 07/07/17 at 09:00 Atorvastatin Calcium (Lipitor) 40 mg DAILY PO Last administered on 07/07/17 09 :32; Admin Dose 40 MG; Start 07/06/17 at 15:00 Hydralazine HCl (Apresoline) 20 mg Q6H PRN IV prn SBP > 160; Start 07/06/17 at 15:00 Metoprolol Tartrate (Lopressor) 25 mg BID PO Last administered on 07/07/17 09: 32; Admin Dose 25 MG; Start 07/06/17 at 15:00 Losartan Potassium (Cozaar) 25 mg DAILY PO Last administered on 07/07/17 09:30 ; Admin Dose 25 MG; Start 07/06/17 at 15:00 Nitroglycerin (Nitroglycerin 2% Oint) 0.5 inch DAILY TD Last administered on 09:36; Admin Dose 0.5 INCH; Start 07/06/17 at 15:00 Ondansetron HCl (Zofran Inj) 4 mg Q6H PRN IV NAUSEA AND/OR VOMITING; Start at 16:30 Morphine Sulfate (morphine) 2 mg Q4H PRN IV SEVERE PAIN LEVEL 7-10; Start 07/06 at 16:30 Pantoprazole (Protonix Iv) 40 mg DAILY@06 IV Last administered on 07/07/17 06: 05; Admin Dose 40 MG; Start 07/07/17 at 06:00 Lorazepam (Ativan) 2 mg Q10MIN PRN IV seizure; Start 07/06/17 at 16:30 Diazepam (Valium) 5 mg Q6H PRN PO ANXIETY; Start 07/06/17 at 16:30 Labetalol HCl (Labetalol) 10 mg Q2 PRN IV SBP>160; Start 07/06/17 at 16:30 Nicotine (Nicoderm 14 Mg/ 24hr) 1 patch DAILY TRANSDERM Last administered on 09:33; Admin Dose 1 PATCH; Start 07/06/17 at 17:00 Influenza Virus Vaccine (Fluzone) 0.5 ml ONCE ONCE IM* ; Start 07/08/17 at 09:00 ; Stop 07/08/17 at 09:01 SAUL ORDOÑEZ Jul 07, 2017 17:48
[2017-07-07 23:24] LABS: INR 1.14; PROTIME 14.6 Sec (12.2-14.2); PT RATIO 1.1
[2017-07-07 23:25] LABS: PARTIAL THROMBOPLASTIN TIME 59.9 Sec (25.0-35.0)
[2017-07-08] VITALS (13 sets, daily range): BP systolic 110–134; BP diastolic 70–93; PULSE 85–156; RESP 18–21
[2017-07-08 06:17] LABS: BASOPHILS % 0.3 % (0.0-2.0); EOSINOPHILS % 0.5 % (0.0-7.0); HEMATOCRIT 40.4 % (42.0-52.0); HEMOGLOBIN 13.7 g/dl (14.0-18.0); LYMPHOCYTES # 1.6 10^3/ul (0.8-2.9); LYMPHOCYTES % 19.8 % (15.0-51.0); MEAN CORPUSCULAR HEMOGLOBIN 36.7 pg (29.0-33.0); MEAN CORPUSCULAR HGB CONC 33.9 g/dl (32.0-37.0); MEAN CORPUSCULAR VOLUME 108.3 fl (82.0-101.0); MEAN PLATELET VOLUME 10.4 fl (7.4-10.4); MONOCYTE # 0.9 10^3/ul (0.3-0.9); MONOCYTES % 11.1 % (0.0-11.0); NEUTROPHIL # 5.5 10^3/ul (1.6-7.5); PLATELET COUNT 197 10^3/UL (140-415); RED BLOOD COUNT 3.73 10^6/ul (4.70-6.10); RED CELL DISTRIBUTION WIDTH 13.4 % (11.5-14.5)
[2017-07-08] MEDS: PANTOPRAZOLE 40 MG INJ IV SCH (06:27)
[2017-07-08 06:30] LABS: INR 1.16; PROTIME 14.8 Sec (12.2-14.2); PT RATIO 1.2
[2017-07-08 06:32] LABS: CALCIUM 8.3 mg/dl (8.4-10.2); CREATININE 0.8 mg/dl (0.61-1.24); MAGNESIUM 1.7 mg/dl (1.7-2.5); PARTIAL THROMBOPLASTIN TIME 58.3 Sec (25.0-35.0); PHOSPHORUS 3.6 mg/dl (2.5-4.9); POTASSIUM 3.7 mmol/L (3.5-5.1)
[2017-07-08] MEDS: ALBUTEROL/IPRATROPIUM (NEB) 3 ML AMP HHN SCH ×3 (07:45→20:28)
[2017-07-08] MEDS ORDERED: INFLUENZA VIRUS VACCINE 0.5 ML (DISPENSING) IM* ONE (09:00)
[2017-07-08] MEDS: ATORVASTATIN 40 MG TAB PO SCH (09:23)
[2017-07-08] MEDS: METOPROLOL 25 MG TAB PO SCH ×2 (09:24→21:18)
[2017-07-08] MEDS: LOSARTAN 25 MG TAB PO SCH (09:25)
[2017-07-08] MEDS: NITROGLYCERIN 2% 1 GM OINT PKT TD SCH (09:26)
[2017-07-08] MEDS: ASPIRIN (EC) 81 MG TAB PO SCH (09:26)
[2017-07-08] MEDS: NICOTINE (14 MG/24 HR) PATCH TRANSDERM SCH (09:27)
--- NOTE | 2017-07-08 10:58 | PDOCDIS ---
Discharge Instructions DIAGNOSIS Discharge Diagnosis NSTEMI; COPD; medical noncompliance; tobacco abuse; alcoholism; coronary artery disease; hypokalemia; systolic dysfunction severe; diastolic dysfunction [place] [employer] 3 CONDITION Patient Condition: Serious HOME CARE INSTRUCTIONS: Diet Instructions: Reduced Sodium ACTIVITY: Activity Restrictions: Slowly Increase Activity Do not operate Machinery Do not operate Power Tool FOLLOW UP/APPOINTMENTS Follow-up Plan Establish with primary care physician; apply for Medicare; follow-up with cardiology within the next month DEVIKA WILCOX MD Jul 08, 2017 10:58
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
[2017-07-08] MEDS ORDERED: LISI10TA2 PO (11:05)
[2017-07-08] MEDS ORDERED: ADV25050 INHALATION (11:05)
[2017-07-08] MEDS ORDERED: METO-448 PO (11:05)
[2017-07-08] MEDS ORDERED: ASPI-664 PO (11:05)
[2017-07-08] MEDS ORDERED: ATOR40TA68 PO (11:05)
--- NOTE | 2017-07-08 15:12 | PN ---
DATE: 10/08/2016 SUBJECTIVE DATA: Mr. Goncalves is resting comfortably in the hospital bed. He remains chest pain free. OBJECTIVE DATA: VITAL SIGNS: Temperature 98, pulse 68, blood pressure 119/73. He is in no distress. No jugular venous distention. LUNGS: Clear. HEART: Reveals a regular rate and rhythm. ABDOMEN: Obese and soft. EXTREMITIES: No edema. LABORATORY: White count 8.0, hematocrit 40.4, platelet count 197. Sodium 140, potassium 3.7, BUN 16, creatinine 0.8. Troponins 4.7. MEDICATIONS: 1. Aspirin. 2. Protonix. 3. Flurazepam. 4. Labetalol. 5. Atorvastatin. 6. Metoprolol. 7. Losartan. ASSESSMENT AND PLAN: Ashvin has a severe cardiomyopathy with non ST-elevation myocardial infarction. As noted in the notes, he has previously been noncompliant with medication. Per discussion with Mr. Goncalves, he does wish to undergo angiography at this time and would be willing to proceed with a bypass surgery which apparently was previously recommended. I have also discussed the possibility that a PCI of might be beneficial and he is certain that he would be able to be compliant with prescribed medications. At this time. We will schedule for an angiogram tomorrow. Dictated By: Alex Best MD /bita/josefina /Document#: [id number]
[2017-07-09] VITALS (32 sets, daily range): BP systolic 94–144; BP diastolic 60–92; PULSE 82–115; RESP 18–25
[2017-07-09] MEDS: PANTOPRAZOLE 40 MG INJ IV SCH (05:37)
[2017-07-09 07:24] LABS: BASOPHILS % 0.3 % (0.0-2.0); EOSINOPHILS # 0.1 10^3/ul (0.0-0.5); EOSINOPHILS % 1.2 % (0.0-7.0); HEMATOCRIT 42.9 % (42.0-52.0); LYMPHOCYTES # 1.9 10^3/ul (0.8-2.9); LYMPHOCYTES % 28.1 % (15.0-51.0); MEAN CORPUSCULAR HEMOGLOBIN 35.5 pg (29.0-33.0); MEAN CORPUSCULAR HGB CONC 32.6 g/dl (32.0-37.0); MEAN CORPUSCULAR VOLUME 108.9 fl (82.0-101.0); MEAN PLATELET VOLUME 10.6 fl (7.4-10.4); MONOCYTE # 0.8 10^3/ul (0.3-0.9); MONOCYTES % 12.2 % (0.0-11.0); NEUTROPHIL # 3.9 10^3/ul (1.6-7.5); NEUTROPHILS % 57.9 % (39.0-77.0); PLATELET COUNT 200 10^3/UL (140-415); RED BLOOD COUNT 3.94 10^6/ul (4.70-6.10); RED CELL DISTRIBUTION WIDTH 13.1 % (11.5-14.5); WHITE BLOOD COUNT 6.7 10^3/ul (4.8-10.8)
[2017-07-09 07:47] LABS: CALCIUM 8.6 mg/dl (8.4-10.2); CREATININE 0.82 mg/dl (0.61-1.24); POTASSIUM 3.6 mmol/L (3.5-5.1)
[2017-07-09] MEDS: ALBUTEROL/IPRATROPIUM (NEB) 3 ML AMP HHN SCH ×3 (07:47→21:50)
[2017-07-09] MEDS: ASPIRIN (EC) 81 MG TAB PO SCH (08:25)
[2017-07-09] MEDS: METOPROLOL 25 MG TAB PO SCH (08:26)
[2017-07-09] MEDS: ATORVASTATIN 40 MG TAB PO SCH (08:26)
[2017-07-09] MEDS: NICOTINE (14 MG/24 HR) PATCH TRANSDERM SCH (08:28)
--- NOTE | 2017-07-09 11:24 | PN ---
Date/Time of Note Date/Time of Note DATE: 07/09/17 TIME: 11:09 Assessment/Plan VTE Prophylaxis VTE Prophylaxis Intervention: heparin Lines/Catheters IV [facility] Saline Lock Assessment/Plan Chief Complaint/Hosp Course 67-year-old male with current everyday smoking and alcohol abuse, presented to the ER with 3-4 day onset of progressively worsening left sided chest pain. 1.Non-ST elevation RI -Continue heparin gtt. Cardiology evaluation greatly appreciated and plan is for left heart catheterization with possible PCI. -Continue Aspirin, BB, heparin and statin. 2.COPD. Stable -Continue current medical management. -Smoking cessation and. 3. Coronary artery disease -Continue medical optimization. Follow-up with cardiac cath findings. 4. Severe ischemic cardiomyopathy with ejection fraction 15%. -Continue medical optimization with beta-aroldo, DEYANIRA inhibitor, nitro as needed , statin -F/u with cardiac cath reports. 5. Hyperchromia/macrocytosis. H&H stable. -Obtain vitamin B12 and treat accordingly. 6. Medical noncompliance -Patient was counseled. 7. Tobacco abuse -Cessation advised. Continue nicotine patch. 8.Alcohol use -Cessation advised. PLAN: Patient is for cardiac catheterization today. Given severe medical non- compliance, I have discussed with patient in detail regarding postprocedure treatment/medication compliance. Patient was seen in collaboration with . Problems: Subjective 24 Hr Interval Summary Free Text/Dictation Patient lying in bed. He complains of intermittent left-sided chest pain without any radiation. Exam/Review of Systems Vital Signs Vitals Vital Signs Date Time Temp Pulse Resp B/P Pulse Ox O2 Delivery O2 Flow Rate FiO2 07/09/17 08:15 Nasal Cannula 3.0 07/09/17 08:12 86 07/09/17 07:52 99 07/09/17 07:50 20 07/09/17 07:44 98.4 109/71 07/09/17 01:41 27 Intake and Output 07/08/17 07/08/17 07/09/17 15:00 23:00 07:00 Intake Total 800 ml 500 ml Output Total 1000 ml 850 ml Balance -200 ml -350 ml Exam General: Well developed,adequately built, not in any acute distress . HEENT: Normocephalic, Atraumatic, No laceration or hematoma; Eyes: PEERL, Conjunctiva clear, Anicteric sclera Neck: Supple without any lymphadenopathy, nontender, no JVD, no carotid bruits, trachea midline, no thyromegaly Cardiac: S1, S2 auscultated, regular rhythm and rate, no mumurs or gallop Pulmonary: Normal respiratory effort. Chest clear to auscultation bilaterally, no adventitious breath sounds GI: Abdomen normal to inspection. Soft, non tender, non- distended, no masses, no rebound tenderness or guarding. Bowel sounds active on all four quadrants Genitourinary: Deferred Extremities: No cyanosis, clubbing, or edema. Pulses [2+] bilaterally. Full ROM on all four extremities. No focal weakness appreciated. Neurologic: Alert to person, place, time, and situation. Affect appropriate, intact sensation. Skin: Clean,dry, and intact. No ecchymosis, no rashes, or lesions Results Result Diagram: 07/09/17 0635 07/09/17 0635 Results 24 hrs Laboratory Tests Test 07/09/17 06:35 White Blood Count 6.7 Red Blood Count 3.94 L Hemoglobin 14.0 Hematocrit 42.9 Mean Corpuscular Volume 108.9 H Mean Corpuscular Hemoglobin 35.5 H Mean Corpuscular Hemoglobin Concent 32.6 Red Cell Distribution Width 13.1 Platelet Count 200 Mean Platelet Volume 10.6 H Neutrophils % 57.9 Lymphocytes % 28.1 Monocytes % 12.2 H Eosinophils % 1.2 Basophils % 0.3 Nucleated Red Blood Cells % 0.0 Neutrophils # 3.9 Lymphocytes # 1.9 Monocytes # 0.8 Eosinophils # 0.1 Basophils # 0.0 Nucleated Red Blood Cells # 0.0 Activated Partial Thromboplast Time 41.1 H Sodium Level 139 Potassium Level 3.6 Chloride Level 105 Carbon Dioxide Level 27 Anion Gap 11 Blood Urea Nitrogen 11 Creatinine 0.82 Glucose Level 104 Calcium Level 8.6 Medications Medications Current Medications Aspirin (Halfprin) 81 mg DAILY PO Last administered on 07/09/17 08:25; Admin Dose 81 MG; Start 07/07/17 at 09:00 Atorvastatin Calcium (Lipitor) 40 mg DAILY PO Last administered on 07/09/17 08 :26; Admin Dose 40 MG; Start 07/06/17 at 15:00 Hydralazine HCl (Apresoline) 20 mg Q6H PRN IV prn SBP > 160; Start 07/06/17 at 15:00 Metoprolol Tartrate (Lopressor) 25 mg BID PO Last administered on 07/09/17 08: 26; Admin Dose 25 MG; Start 07/06/17 at 15:00 Losartan Potassium (Cozaar) 25 mg DAILY PO Last administered on 07/08/17 09:25 ; Admin Dose 25 MG; Start 07/06/17 at 15:00; Status Future Hold Ondansetron HCl (Zofran Inj) 4 mg Q6H PRN IV NAUSEA AND/OR VOMITING; Start at 16:30 Morphine Sulfate (morphine) 2 mg Q4H PRN IV SEVERE PAIN LEVEL 7-10; Start 07/06 at 16:30 Pantoprazole (Protonix Iv) 40 mg DAILY@06 IV Last administered on 07/09/17 05: 37; Admin Dose 40 MG; Start 07/07/17 at 06:00 Lorazepam (Ativan) 2 mg Q10MIN PRN IV seizure; Start 07/06/17 at 16:30 Diazepam (Valium) 5 mg Q6H PRN PO ANXIETY; Start 07/06/17 at 16:30 Labetalol HCl (Labetalol) 10 mg Q2 PRN IV SBP>160; Start 07/06/17 at 16:30 Nicotine (Nicoderm 14 Mg/ 24hr) 1 patch DAILY TRANSDERM Last administered on 08:28; Admin Dose 1 PATCH; Start 07/06/17 at 17:00 TUCKER HOLLOWAY NP Jul 09, 2017 11:09
[2017-07-09] MEDS ORDERED: MIDAZOLAM 1 MG/ML 2 ML INJ ONE (13:44)
[2017-07-09] MEDS ORDERED: FENTAnyl 50 MCG/ML VIAL ONE (13:44)
[2017-07-09] MEDS ORDERED: HEPARIN 1000 UNITS/NS (A-LINE) 1,000 ML ONE (13:44)
[2017-07-09] MEDS ORDERED: HEPARIN 1000 UNITS/ML 10 ML INJ ONE (13:44)
[2017-07-09] MEDS ORDERED: VERAPAMIL 5 MG INJ ONE (13:44)
[2017-07-09] MEDS ORDERED: LIDOCAINE 1% (MDV) 20 ML INJ ONE (13:44)
[2017-07-09] MEDS ORDERED: IODIXANOL LOCM 100 ML BTL ONE (13:44)
[2017-07-09] MEDS ORDERED: NITROGLYCERIN (IC) 100 MCG/ML INJ ONE (13:44)
--- NOTE | 2017-07-09 14:42 | OPR ---
Date/Time of Note Date/Time of Note DATE: 07/09/17 TIME: 14:29 Operative Report Procedure Date: Jul 09, 2017 Preoperative Diagnosis NSTEMI Postoperative Diagnosis Triple vessel disease coronary artery disease Operation/Procedure Performed Left heart catheterization Right and left coronary angiogram Interpretation and supervision of right left coronary angiogram Left ventricular pressure measurements Conscious sedation Right radial artery approach Surgeon see signature line Engineering Manager Electronics None Anesthesia Type: other (Conscious sedation) Anesthesiologist: Du Mckeon DO Estimated Blood Loss: minimal Transfusion none Specimen None Grafts/Implants none Complications none Pt Condition Post Procedure: stable Indications This is a 67-year-old male who presents with shortness of breath, chest pain and non-ST elevation myocardial infarction Procedure Description Findings Hemodynamics LV pressure is 110/5 with EDP of 20 Aortic pressure is 111/71 Fluoroscopy Coronary anatomy Left main is a medium to large caliber vessel with no significant disease Circumflex is a medium to large caliber vessel with proximal eccentric 90% calcified stenosis. There are large patent obtuse marginal distally LAD is a medium caliber vessel with a mid 80% stenosis and mid to distal 70% stenosis RCA is a medium caliber vessel and dominant. There is a proximal to mid 99% stenosis with right to right collaterals. The distal vessel is seen via collaterals from the left system which demonstrates a patent medium caliber PDA and PLB. Patient brought to the Deck Supervisor after informed consent. Patient was prepped and draped as per protocol. Right radial access was obtained using ultrasound guidance. A 5/6 Faroese sheath was used in the right radial artery.. A 5 Faroese [place] catheter was used to engage the left main and angiogram was performed. The next engage the RCA and angiogram was performed. We next onto the left ventricle and pressure measurements were obtained as well as pullback. Patient with severe triple-vessel disease and severe cardiomyopathy. Would need coronary artery bypass grafting. Patient remained chest pain-free throughout the procedure and remained hemodynamically stable. All catheters and wires removed. Du Mckeon DO Jul 09, 2017 14:42
[2017-07-09] MEDS ORDERED: POTASSIUM CHLORIDE (SR) 20 MEQ TAB PO STA (14:44)
--- NOTE | 2017-07-09 14:47 | CONS ---
Date/Time of Note Date/Time of Note DATE: 07/09/17 TIME: 14:46 Assessment/Plan Assessment/Plan Additional Assessment/Plan Non-ST elevation [place] Triple-vessel coronary artery disease Ischemic cardiomyopathy with ejection fraction 15% Tobacco use Alcohol use -Patient status post cardiac catheterization with evidence of triple-vessel coronary artery disease. Given the severe disease, cardia myopathy, patient would benefit from coronary artery bypass grafting. Would continue aspirin therapy, increase statin therapy, change Lopressor to Coreg, continue ARB. CT surgery evaluation Consultation Date/Type/Reason Admit Date/Time Jul 06, 2017 at 11:28 Initial Consult Date 07/06/17 Type of Consultation: cv 24 HR Interval Summary Free Text/Dictation Patient with mild chest discomfort this morning but feeling better. Shortness of breath has improved. Denies dizziness or lightheadedness Exam/Review of Systems Vital Signs Vitals Vital Signs Date Time Temp Pulse Resp B/P Pulse Ox O2 Delivery O2 Flow Rate FiO2 07/09/17 13:14 94 21 07/09/17 13:13 90 23 07/09/17 11:33 98.6 126/79 07/09/17 08:15 Nasal Cannula 3.0 Intake and Output 07/08/17 07/08/17 07/09/17 15:00 23:00 07:00 Intake Total 800 ml 500 ml Output Total 1000 ml 850 ml Balance -200 ml -350 ml Exam No apparent distress Constitutional: alert, oriented Head: normocephalic Respiratory: other (Coarse breath sounds bilaterally, no wheezing) Cardiovascular: other (S1-S2 heard), regular rate and rhythm Gastrointestinal: bowel sounds, non-tender, soft Extremities: edema Results Result Diagram: 07/09/17 0635 07/09/17 0635 Results 24 hrs Laboratory Tests Test 07/09/17 06:33 07/09/17 06:35 Vitamin B12 Level < 159 L Folate 6.5 White Blood Count 6.7 Red Blood Count 3.94 L Hemoglobin 14.0 Hematocrit 42.9 Mean Corpuscular Volume 108.9 H Mean Corpuscular Hemoglobin 35.5 H Mean Corpuscular Hemoglobin Concent 32.6 Red Cell Distribution Width 13.1 Platelet Count 200 Mean Platelet Volume 10.6 H Neutrophils % 57.9 Lymphocytes % 28.1 Monocytes % 12.2 H Eosinophils % 1.2 Basophils % 0.3 Nucleated Red Blood Cells % 0.0 Neutrophils # 3.9 Lymphocytes # 1.9 Monocytes # 0.8 Eosinophils # 0.1 Basophils # 0.0 Nucleated Red Blood Cells # 0.0 Activated Partial Thromboplast Time 41.1 H Sodium Level 139 Potassium Level 3.6 Chloride Level 105 Carbon Dioxide Level 27 Anion Gap 11 Blood Urea Nitrogen 11 Creatinine 0.82 Glucose Level 104 Calcium Level 8.6 Medications Medications Current Medications Aspirin (Halfprin) 81 mg DAILY PO Last administered on 07/09/17 08:25; Admin Dose 81 MG; Start 07/07/17 at 09:00 Atorvastatin Calcium (Lipitor) 40 mg DAILY PO Last administered on 07/09/17 08 :26; Admin Dose 40 MG; Start 07/06/17 at 15:00 Hydralazine HCl (Apresoline) 20 mg Q6H PRN IV prn SBP > 160; Start 07/06/17 at 15:00 Metoprolol Tartrate (Lopressor) 25 mg BID PO Last administered on 07/09/17 08: 26; Admin Dose 25 MG; Start 07/06/17 at 15:00 Losartan Potassium (Cozaar) 25 mg DAILY PO Last administered on 07/08/17 09:25 ; Admin Dose 25 MG; Start 07/06/17 at 15:00; Status Future Hold Ondansetron HCl (Zofran Inj) 4 mg Q6H PRN IV NAUSEA AND/OR VOMITING; Start at 16:30 Morphine Sulfate (morphine) 2 mg Q4H PRN IV SEVERE PAIN LEVEL 7-10; Start 07/06 at 16:30 Lorazepam (Ativan) 2 mg Q10MIN PRN IV seizure; Start 07/06/17 at 16:30 Diazepam (Valium) 5 mg Q6H PRN PO ANXIETY; Start 07/06/17 at 16:30 Labetalol HCl (Labetalol) 10 mg Q2 PRN IV SBP>160; Start 07/06/17 at 16:30 Nicotine (Nicoderm 14 Mg/ 24hr) 1 patch DAILY TRANSDERM Last administered on 08:28; Admin Dose 1 PATCH; Start 07/06/17 at 17:00 Famotidine (Pepcid Iv) 20 mg Q12 IV ; Start 07/09/17 at 21:00 Du Mckeon DO Jul 09, 2017 14:47
[2017-07-09] MEDS ORDERED: MAGNESIUM SULFATE 2 GM/50 ML 50 ML IVPB ONE (15:00)
--- NOTE | 2017-07-09 17:05 | RADRPT ---
Vent Rate: 101 bpm RR Interval: 0 msec TN Interval: 152 msec QRS Duration: 106 msec QT Interval: 352 msec QTC Interval: 456 msec P-R-T [place]: 75 - -74 - 98 degrees Sinus tachycardia Left axis deviation Left ventricular hypertrophy with repolarization abnormality Inferior infarct , age undetermined Abnormal ECG Electronically Signed By: Du Mckeon [id number]
--- NOTE | 2017-07-09 17:12 | RADRPT ---
PROCEDURE: US Carotids. CLINICAL INDICATION: Preoperative evaluation. TECHNIQUE: Multiple sonographic of the carotid arteries were obtained utilizing reis scale imaging . Color and Doppler imaging was performed. The images were reviewed on a PACS workstation. COMPARISON: No prior studies are available for comparison. FINDINGS: Location Right Left CCA 34 cm/sec 42 cm/sec Prox ICA 25 cm/sec 29 cm/sec Mid ICA 32 cm/sec 42 cm/sec Dist ICA 40 cm/sec 45 cm/sec ECA 47 cm/sec 32 cm/sec ICA/CCA 1.2 1.1 Antegrade flow is seen within the vertebral arteries bilaterally. Mild scattered atherosclerotic kenneth que is seen within the carotid system bilaterally. No hemodynamically significant stenosis or occlu toma is identified. IMPRESSION: 1. Mild scattered atherosclerotic plaque without evidence for hemodynamically significant stenosis - validated velocity measurements with angiographic measurements, velocity criteria are extrapolated from diameter data as defined by the Society of Radiologists in Ultrasound Consensus Conference Radi ology 2003; 229;340-346. This study does indirectly reference the measurement of the distal ICA britney meter as the denominator for stenosis measurement. 2. Antegrade flow seen within the vertebral arteries bilaterally. SRU Consensus Conference Criteria for the Diagnosis of Carotid Artery Stenosis Degree of Stenosis, % ICA PSV, cm/sec Plaque Estimate, % ICA/CCA PSV Ratio Normal <125 None <2.0 <50 <125 <50 <2.0 50 69 125-230 >50 2.0-4.0 >70 but less than near occlusion >230 >50 <4.0 Near occlusion High, low, or undetectable Visible Variable Total occlusion Undetectable Visible, no detectable lumen Not applicable *Cartoid artery stenosis: reis-scale and Doppler US diagnosis. Society of Radiologists in Ultrasound Consensus Conference. Radiology 2003; 229: 340-346 RPTAT: JJ .Raulito Khan MD, MD Date Time Electronically viewed and signed by .Raulito Khan MD, MD on 07/09/2017 17:12 .A/
[2017-07-09] MEDS: FAMOTIDINE 20 MG INJ IV SCH (20:55)
[2017-07-09] MEDS: HEPARIN 25000 UNITS/250 ML 250 ML IV SCH (22:09)
[2017-07-10] VITALS (20 sets, daily range): BP systolic 93–129; BP diastolic 70–95; PULSE 83–112; RESP 18–26
[2017-07-10 06:07] LABS: CALCIUM 8.4 mg/dl (8.4-10.2); CREATININE 0.8 mg/dl (0.61-1.24); MAGNESIUM 2.1 mg/dl (1.7-2.5)
[2017-07-10] MEDS: HEPARIN 1000 UNITS/ML 10 ML INJ IV PRN ×2 (06:33→13:37)
[2017-07-10] MEDS: HEPARIN 25000 UNITS/250 ML 250 ML IV SCH (06:37)
[2017-07-10] MEDS ORDERED: FUROSEMIDE 20 MG INJ ONE (09:24)
[2017-07-10] MEDS: ATORVASTATIN 80 MG TAB PO SCH (09:28)
[2017-07-10] MEDS: NICOTINE (14 MG/24 HR) PATCH TRANSDERM SCH (09:28)
[2017-07-10] MEDS: ASPIRIN (EC) 81 MG TAB PO SCH (09:28)
[2017-07-10] MEDS: CYANOCOBALAMIN 500 MCG TAB PO SCH (09:28)
[2017-07-10] MEDS: FAMOTIDINE 20 MG INJ IV SCH ×2 (09:35→20:45)
[2017-07-10] MEDS: FUROSEMIDE 20 MG INJ IV SCH ×2 (09:36→18:03)
--- NOTE | 2017-07-10 11:59 | CONS ---
Date/Time of Note Date/Time of Note DATE: 07/10/17 TIME: 11:53 Assessment/Plan Assessment/Plan Additional Assessment/Plan Chest x-ray was reviewed from of last which is showing emphysematous changes. There is mild bilateral pulmonary edema present. Assessment and recommendations; 1. Patient admitted with acute MD underwent angiography revealing multivessel disease not amenable to nonsurgical intervention. 2. Stable COPD. Continue current treatment. Patient likely will need to have CABG performed. Consultation Date/Type/Reason Admit Date/Time Jul 06, 2017 at 11:28 Date of Consultation: Jul 10, 2017 Type of Consultation: Pulmonary/critical care Reason for Consultation Pulmonary consultation requested for evaluation of shortness of breath and COPD. History of presenting illness; patient is a pleasant 67-year-old male who came into the hospital on the of last month with complaints of worsening dyspnea for the last few weeks as well as chest pain. Upon evaluation patient was diagnosed with STEMI. Patient underwent coronary angiography which is revealing multivessel disease not amenable to known surgical intervention. By the time I saw the patient the patient is comfortably sitting in a chair by bedside and according to him he is feeling much better without any further chest pain or shortness of breath. Patient does complain of chronic cough and chronic sputum production which he is attributing to his current smoking habit. He denies any fever or chills. He denies any recent nausea or vomiting. Past medical history; 1. History of COPD. 2. Hypertension. 3. Remote history of groin infection. Medications; reviewed. Allergies; none. Family history; patient is a . He has had 8 children. 4 have . Occupational history; patient is currently employed in [employer]. Review systems; denies any headache, visual changes. Any sinus symptoms. Chest pain has resolved. Denies any dyspnea on exertion on a chronic basis; until recently. Denies any nausea vomiting. Any weight loss. Any edema. Any orthopnea. Denies any skin changes. Denies any seizures. Any visual changes. Or hearing loss. Any urinary symptoms. Any GI bleeding. General exam; elderly male, awake and alert. Currently in no distress. ENT: no complaints Respiratory: shortness of breath Cardiovascular: chest pain Gastrointestinal: no complaints Genitourinary: no complaints Musculoskeletal: no complaints Neurologic: no complaints Endocrine: no complaints Past Medical History Medical History: coronary artery disease, hypertension, other (COPD) Past Surgical History Past Surgical Hx: no surgical history Social History Alcohol Use: other Smoking Status: Current every day smoker Drug Use: other Exam/Review of Systems Vital Signs Vitals Vital Signs Date Time Temp Pulse Resp B/P Pulse Ox O2 Delivery O2 Flow Rate FiO2 07/10/17 08:00 98.8 107 18 122/75 98 Nasal Cannula 2.0 07/09/17 21:50 21 Intake and Output 07/09/17 07/09/17 07/10/17 15:00 23:00 07:00 Intake Total 228 ml 70 ml Output Total 300 ml 200 ml Balance -72 ml -130 ml Exam HEENT exam; supple neck, no JVD. No lymphadenopathy. Midline trachea. No thyromegaly. Patient is edentulous and wears dentures. Has bilateral intraocular lens implants. No neck bruits. Chest exam; diminished but clear breath sounds. S1-S2 audible, no murmurs. Regular rhythm. Abdomen exam; soft, nontender. No organomegaly. Bowel sounds audible. Extremity exam; no peripheral edema. Pulses 2+ bilaterally. No clubbing. WIRE WINDER exam; no focal deficit. Results Result Diagram: 07/09/17 0635 07/10/17 0355 Results 24 hrs Laboratory Tests Test 07/10/17 03:55 Activated Partial Thromboplast Time 32.6 Sodium Level 139 Potassium Level 4.0 Chloride Level 107 Carbon Dioxide Level 28 Anion Gap 8 Blood Urea Nitrogen 10 Creatinine 0.80 Glucose Level 93 Calcium Level 8.4 Magnesium Level 2.1 Medications Medications Current Medications Aspirin (Halfprin) 81 mg DAILY PO Last administered on 07/10/17 09:28; Admin Dose 81 MG; Start 07/07/17 at 09:00 Hydralazine HCl (Apresoline) 20 mg Q6H PRN IV prn SBP > 160; Start 07/06/17 at 15:00 Losartan Potassium (Cozaar) 25 mg DAILY PO Last administered on 07/08/17 09:25 ; Admin Dose 25 MG; Start 07/06/17 at 15:00; Status Future Hold Ondansetron HCl (Zofran Inj) 4 mg Q6H PRN IV NAUSEA AND/OR VOMITING; Start at 16:30 Morphine Sulfate (morphine) 2 mg Q4H PRN IV SEVERE PAIN LEVEL 7-10; Start 07/06 at 16:30 Lorazepam (Ativan) 2 mg Q10MIN PRN IV seizure Last administered on 07/09/17 20 :55; Admin Dose 2 MG; Start 07/06/17 at 16:30 Labetalol HCl (Labetalol) 10 mg Q2 PRN IV SBP>160; Start 07/06/17 at 16:30 Nicotine (Nicoderm 14 Mg/ 24hr) 1 patch DAILY TRANSDERM Last administered on 09:28; Admin Dose 1 PATCH; Start 07/06/17 at 17:00 Famotidine (Pepcid Iv) 20 mg Q12 IV Last administered on 07/10/17 09:35; Admin Dose 20 MG; Start 07/09/17 at 21:00 Cyanocobalamin (Vitamin B12) 500 mcg DAILY PO Last administered on 07/10/17 09 :28; Admin Dose 500 MCG; Start 07/10/17 at 09:00 Atorvastatin Calcium (Lipitor) 80 mg DAILY PO Last administered on 07/10/17 09 :28; Admin Dose 80 MG; Start 07/10/17 at 09:00 Carvedilol (Coreg) 3.125 mg BID GTB Last administered on 07/10/17 09:29; Admin Dose 3.125 MG; Start 07/10/17 at 09:00 GRETCHEN BLAKE Jul 10, 2017 11:59
--- NOTE | 2017-07-10 13:05 | PN ---
Date/Time of Note Date/Time of Note DATE: 07/10/17 TIME: 13:02 Assessment/Plan VTE Prophylaxis VTE Prophylaxis Intervention: LMWH, other Lines/Catheters IV Catheter Type (from Nrsg): Peripheral IV Urinary Cath still in place: No Assessment/Plan Chief Complaint/Hosp Course 67 yo male with COPD, tobacco use d/o, etoh use d/o, presenting wtih NSTEMI, found to have acute systolic CHF exacerbation Ef 15% and 3x vessel disease, pending CABG Acute systolic CHF exacerbation: - Start diuresis, 20 IV lasix BID - Coreg started - DEYANIRA/yoel indicated NSTEMI, 3x vessel CAD - CABG pending - Statin Tobacoo use d/o: - Cessation advised B12 defiiecny anemia; - supplement B12 Etoh use d/o: - Cessation advised Dispo likely to rehab followign CABG Problems: Subjective 24 Hr Interval Summary Free Text/Dictation Has SOB Mildly tachypneic Started on lasix this AM Pending CABG. No CP. Exam/Review of Systems Vital Signs Vitals Vital Signs Date Time Temp Pulse Resp B/P Pulse Ox O2 Delivery O2 Flow Rate FiO2 07/10/17 12:00 98 07/10/17 08:00 98.8 18 122/75 98 Nasal Cannula 2.0 07/09/17 21:50 21 Intake and Output 07/09/17 07/09/17 07/10/17 15:00 23:00 07:00 Intake Total 228 ml 70 ml Output Total 300 ml 200 ml Balance -72 ml -130 ml Exam +++ JVD Tachypenic to 30s, inspiratory accesory use, mild Bibasilar crackles No peripheral edema Results Result Diagram: 07/09/17 0635 07/10/17 0355 Results 24 hrs Laboratory Tests Test 07/10/17 03:55 07/10/17 12:22 Activated Partial Thromboplast Time 32.6 43.9 H Sodium Level 139 Potassium Level 4.0 Chloride Level 107 Carbon Dioxide Level 28 Anion Gap 8 Blood Urea Nitrogen 10 Creatinine 0.80 Glucose Level 93 Calcium Level 8.4 Magnesium Level 2.1 Medications Medications Current Medications Aspirin (Halfprin) 81 mg DAILY PO Last administered on 07/10/17t 09:28; Admin Dose 81 MG; Start 07/07/17 at 09:00 Hydralazine HCl (Apresoline) 20 mg Q6H PRN IV prn SBP > 160; Start 07/06/17 at 15:00 Losartan Potassium (Cozaar) 25 mg DAILY PO Last administered on 07/08/17 09:25 ; Admin Dose 25 MG; Start 07/06/17 at 15:00; Status Future Hold Ondansetron HCl (Zofran Inj) 4 mg Q6H PRN IV NAUSEA AND/OR VOMITING; Start at 16:30 Morphine Sulfate (morphine) 2 mg Q4H PRN IV SEVERE PAIN LEVEL 7-10; Start 07/06 at 16:30 Lorazepam (Ativan) 2 mg Q10MIN PRN IV seizure Last administered on 07/09/17 20 :55; Admin Dose 2 MG; Start 07/06/17 at 16:30 Labetalol HCl (Labetalol) 10 mg Q2 PRN IV SBP>160; Start 07/06/17 at 16:30 Nicotine (Nicoderm 14 Mg/ 24hr) 1 patch DAILY TRANSDERM Last administered on 09:28; Admin Dose 1 PATCH; Start 07/06/17 at 17:00 Famotidine (Pepcid Iv) 20 mg Q12 IV Last administered on 07/10/17 09:35; Admin Dose 20 MG; Start 07/09/17 at 21:00 Cyanocobalamin (Vitamin B12) 500 mcg DAILY PO Last administered on 07/10/17 09 :28; Admin Dose 500 MCG; Start 07/10/17 at 09:00 Atorvastatin Calcium (Lipitor) 80 mg DAILY PO Last administered on 07/10/17 09 :28; Admin Dose 80 MG; Start 07/10/17 at 09:00 Carvedilol (Coreg) 3.125 mg BID GTB Last administered on 07/10/17 09:29; Admin Dose 3.125 MG; Start 07/10/17 at 09:00 ROSEY MOSQUERA MD Jul 10, 2017 13:05
[2017-07-10] MEDS: ALBUTEROL/IPRATROPIUM (NEB) 3 ML AMP HHN SCH ×2 (16:05→19:38)
--- NOTE | 2017-07-10 16:34 | CONS ---
Date/Time of Note Date/Time of Note DATE: 07/10/17 TIME: 16:32 Assessment/Plan Assessment/Plan Additional Assessment/Plan Non-ST elevation [place] Triple-vessel coronary artery disease Ischemic cardiomyopathy with ejection fraction 15% -Patient status post cardiac catheterization with triple-vessel coronary artery disease as well as severe cardiomyopathy. Will need coronary artery bypass grafting. Spoke to CT surgery and pending evaluation. Continue aspirin, heparin, statin therapy, beta-aroldo as heart rate and blood pressure permits and DEYANIRA inhibitor as renal function and blood pressure permits Consultation Date/Type/Reason Admit Date/Time Jul 06, 2017 at 11:28 Initial Consult Date 07/06/17 Type of Consultation: cv 24 HR Interval Summary Free Text/Dictation Denies chest pain, shortness of breath or palpitations Exam/Review of Systems Vital Signs Vitals Vital Signs Date Time Temp Pulse Resp B/P Pulse Ox O2 Delivery O2 Flow Rate FiO2 07/10/17 16:05 87 22 21 07/10/17 15:00 93/72 98 Nasal Cannula 2.0 07/10/17 12:00 98.8 Intake and Output 07/09/17 07/09/17 07/10/17 15:00 23:00 07:00 Intake Total 228 ml 70 ml Output Total 300 ml 200 ml Balance -72 ml -130 ml Exam No apparent distress Constitutional: alert, oriented Head: normocephalic Respiratory: other (Coarse breath sounds bilaterally, no wheezing) Cardiovascular: other (S1-S2 heard), regular rate and rhythm Gastrointestinal: bowel sounds, non-tender, soft Extremities: other (No edema) Results Result Diagram: 07/09/17 0635 07/10/17 0355 Results 24 hrs Laboratory Tests Test 07/10/17 03:55 07/10/17 12:22 Activated Partial Thromboplast Time 32.6 43.9 H Sodium Level 139 Potassium Level 4.0 Chloride Level 107 Carbon Dioxide Level 28 Anion Gap 8 Blood Urea Nitrogen 10 Creatinine 0.80 Glucose Level 93 Calcium Level 8.4 Magnesium Level 2.1 Medications Medications Current Medications Aspirin (Halfprin) 81 mg DAILY PO Last administered on 07/10/17t 09:28; Admin Dose 81 MG; Start 07/07/17 at 09:00 Hydralazine HCl (Apresoline) 20 mg Q6H PRN IV prn SBP > 160; Start 07/06/17 at 15:00 Losartan Potassium (Cozaar) 25 mg DAILY PO Last administered on 07/08/17 09:25 ; Admin Dose 25 MG; Start 07/06/17 at 15:00; Status Future Hold Ondansetron HCl (Zofran Inj) 4 mg Q6H PRN IV NAUSEA AND/OR VOMITING; Start at 16:30 Morphine Sulfate (morphine) 2 mg Q4H PRN IV SEVERE PAIN LEVEL 7-10; Start 07/06 at 16:30 Labetalol HCl (Labetalol) 10 mg Q2 PRN IV SBP>160; Start 07/06/17 at 16:30 Nicotine (Nicoderm 14 Mg/ 24hr) 1 patch DAILY TRANSDERM Last administered on 09:28; Admin Dose 1 PATCH; Start 07/06/17 at 17:00 Famotidine (Pepcid Iv) 20 mg Q12 IV Last administered on 07/10/17 09:35; Admin Dose 20 MG; Start 07/09/17 at 21:00 Cyanocobalamin (Vitamin B12) 500 mcg DAILY PO Last administered on 07/10/17 09 :28; Admin Dose 500 MCG; Start 07/10/17 at 09:00 Atorvastatin Calcium (Lipitor) 80 mg DAILY PO Last administered on 07/10/17 09 :28; Admin Dose 80 MG; Start 07/10/17 at 09:00 Carvedilol (Coreg) 3.125 mg BID GTB Last administered on 07/10/17 09:29; Admin Dose 3.125 MG; Start 07/10/17 at 09:00 Du Mckeon DO Jul 10, 2017 16:34
--- NOTE | 2017-07-10 21:20 | CONS ---
DATE OF ADMISSION: 07/06/2017 DATE OF CONSULTATION: 07/10/2017 REASON FOR CONSULTATION: Evaluation for CABG. HISTORY OF PRESENT ILLNESS: This is a 67-year-old male with a history of COPD, alcohol use, tobacco use, admitted because of chest pain, was found to have non ST elevation [place], underwent a cardiac catheterization, which was positive for three vessel coronary artery disease. Patient's ejection fraction is only 15 percent. This is based on an echocardiogram. Patient also has abnormal diastolic function. Patient also has mild concentric left ventricular hypertrophy. Also, mild to moderate aortic regurgitation and mild mitral calcification with mild mitral regurgitation. PAST MEDICAL HISTORY: Hypertension, COPD. PAST SURGICAL HISTORY: None. ALLERGIES: NONE. SOCIAL HISTORY: Positive for tobacco and alcohol use. MEDICATIONS: Reviewed. PHYSICAL EXAMINATION: VITAL SIGNS: Blood pressure is 115/75, pulse is 93, respirations 18, saturation 95 percent on room air. HEART: Regular rate and rhythm. LUNGS: Clear. ABDOMEN: Soft. EXTREMITIES: Warm. LABORATORY: Significant for hemoglobin 14, and creatinine of 0.8. IMPRESSION: Coronary artery disease. RECOMMENDATIONS: Due to high risk, patient to undergo coronary artery bypass grafting with a low ejection fraction. Would recommend a tertiary care center for further surgical care. Dictated By: Subhash Oliver MD /bita/adan /Document#: [id number]
[2017-07-11] VITALS (12 sets, daily range): BP systolic 99–126; BP diastolic 66–73; PULSE 67–87; RESP 18–19
[2017-07-11] MEDS: HEPARIN 25000 UNITS/250 ML 250 ML IV SCH ×2 (03:05→11:39)
[2017-07-11] MEDS: HEPARIN 1000 UNITS/ML 10 ML INJ IV PRN (03:06)
[2017-07-11] MEDS: FUROSEMIDE 20 MG INJ IV SCH ×2 (05:23→18:00)
[2017-07-11] MEDS: ALBUTEROL/IPRATROPIUM (NEB) 3 ML AMP HHN SCH ×3 (08:14→19:01)
[2017-07-11] MEDS: FAMOTIDINE 20 MG INJ IV SCH (09:57)
[2017-07-11] MEDS: ASPIRIN (EC) 81 MG TAB PO SCH (09:58)
[2017-07-11] MEDS: ATORVASTATIN 80 MG TAB PO SCH (09:58)
[2017-07-11] MEDS: CYANOCOBALAMIN 500 MCG TAB PO SCH (09:58)
[2017-07-11] MEDS: NICOTINE (14 MG/24 HR) PATCH TRANSDERM SCH (09:59)
--- NOTE | 2017-07-11 11:43 | CONS ---
Date/Time of Note Date/Time of Note DATE: 07/11/17 TIME: 11:41 Assessment/Plan Assessment/Plan Additional Assessment/Plan Non-ST elevation [place] Triple-vessel coronary artery disease Ischemic cardiomyopathy with ejection fraction 15% -Patient status post cardiac catheterization with triple-vessel coronary artery disease as well as severe cardiomyopathy. Will need coronary artery bypass grafting. Spoke to CT surgery and given severe cardiomyopathy, recommendations were for transfer to tertiary care center for open heart surgery.. Continue aspirin, heparin, statin therapy, beta-aroldo as heart rate and blood pressure permits and if blood pressure permits, start DEYANIRA inhibitor. Consultation Date/Type/Reason Admit Date/Time Jul 06, 2017 at 11:28 Initial Consult Date 07/06/17 Type of Consultation: cv 24 HR Interval Summary Free Text/Dictation Mild cough today, denies chest pain at the current time or shortness of breath Exam/Review of Systems Vital Signs Vitals Vital Signs Date Time Temp Pulse Resp B/P Pulse Ox O2 Delivery O2 Flow Rate FiO2 07/11/17 11:10 98.1 87 18 99/68 94 07/11/17 09:59 Room Air 07/11/17 08:15 21 07/10/17 15:00 2.0 Intake and Output 07/10/17 07/10/17 07/11/17 15:00 23:00 07:00 Intake Total 960 ml 360 ml 811 ml Output Total 1850 ml 500 ml Balance -890 ml -140 ml 811 ml Exam No apparent distress Constitutional: alert, oriented Head: normocephalic Respiratory: other (Coarse breath sounds bilaterally, no wheezing) Cardiovascular: other (S1-S2 heard), regular rate and rhythm Gastrointestinal: bowel sounds, non-tender, soft Extremities: edema Results Result Diagram: 07/09/17 0635 07/10/17 0355 Results 24 hrs Laboratory Tests Test 07/10/17 12:22 07/10/17 19:10 07/11/17 02:07 07/11/17 09:38 Activated Partial Thromboplast Time 43.9 H 64.0 H 38.3 H 122.1 *H Medications Medications Current Medications Aspirin (Halfprin) 81 mg DAILY PO Last administered on 07/11/17t 09:58; Admin Dose 81 MG; Start 07/07/17 at 09:00 Hydralazine HCl (Apresoline) 20 mg Q6H PRN IV prn SBP > 160; Start 07/06/17 at 15:00 Losartan Potassium (Cozaar) 25 mg DAILY PO Last administered on 07/08/17 09:25 ; Admin Dose 25 MG; Start 07/06/17 at 15:00; Status Future Hold Ondansetron HCl (Zofran Inj) 4 mg Q6H PRN IV NAUSEA AND/OR VOMITING; Start at 16:30 Morphine Sulfate (morphine) 2 mg Q4H PRN IV SEVERE PAIN LEVEL 7-10; Start 07/06 at 16:30 Labetalol HCl (Labetalol) 10 mg Q2 PRN IV SBP>160; Start 07/06/17 at 16:30 Nicotine (Nicoderm 14 Mg/ 24hr) 1 patch DAILY TRANSDERM Last administered on 09:59; Admin Dose 1 PATCH; Start 07/06/17 at 17:00 Famotidine (Pepcid Iv) 20 mg Q12 IV Last administered on 07/11/17 09:57; Admin Dose 20 MG; Start 07/09/17 at 21:00 Cyanocobalamin (Vitamin B12) 500 mcg DAILY PO Last administered on 07/11/17 09 :58; Admin Dose 500 MCG; Start 07/10/17 at 09:00 Atorvastatin Calcium (Lipitor) 80 mg DAILY PO Last administered on 07/11/17 09 :58; Admin Dose 80 MG; Start 07/10/17 at 09:00 Carvedilol (Coreg) 3.125 mg BID GTB Last administered on 07/11/17 09:57; Admin Dose 3.125 MG; Start 07/10/17 at 09:00 Du Mckeon DO Jul 11, 2017 11:43
--- NOTE | 2017-07-11 12:19 | CONS ---
Date/Time of Note Date/Time of Note DATE: 07/11/17 TIME: 12:14 Consult Date/Type/Reason Admit Date/Time Jul 06, 2017 at 11:28 Initial Consult Date 07/10/17 Type of Consultation: Pulmonary Subjective Patient remains stable this morning denies significant chest pain or shortness of breath.No significant events overnight. Objective Vital Signs Date Time Temp Pulse Resp B/P Pulse Ox O2 Delivery O2 Flow Rate FiO2 07/11/17 11:10 98.1 87 18 99/68 94 07/11/17 09:59 Room Air 07/11/17 08:15 21 07/10/17 15:00 2.0 Intake and Output 07/10/17 07/10/17 07/11/17 15:00 23:00 07:00 Intake Total 960 ml 360 ml 811 ml Output Total 1850 ml 500 ml Balance -890 ml -140 ml 811 ml Exam GENERAL: VITAL SIGNS: per chart NECK: Supple. No JVD or lymphadenopathy. CARDIAC EXAM: S1, S2. No added sounds or murmurs. CHEST: clear bilaterally, No added sounds, rales or wheezes ABDOMEN: Soft, nontender. No guarding or rebound. EXTREMITIES: No cyanosis, clubbing or edema. NEUROLOGIC: Generalized weakness. No focal deficits. Results/Medications Result Diagram: 07/09/17 0635 07/10/17 0355 Results 24 hrs Laboratory Tests Test 07/10/17 12:22 07/10/17 19:10 07/11/17 02:07 07/11/17 09:38 Activated Partial Thromboplast Time 43.9 H 64.0 H 38.3 H 122.1 *H Medications Current Medications Aspirin (Halfprin) 81 mg DAILY PO Last administered on 07/11/17 09:58; Admin Dose 81 MG; Start 07/07/17 at 09:00 Hydralazine HCl (Apresoline) 20 mg Q6H PRN IV prn SBP > 160; Start 07/06/17 at 15:00 Losartan Potassium (Cozaar) 25 mg DAILY PO Last administered on 07/08/17 09:25 ; Admin Dose 25 MG; Start 07/06/17 at 15:00; Status Future Hold Ondansetron HCl (Zofran Inj) 4 mg Q6H PRN IV NAUSEA AND/OR VOMITING; Start at 16:30 Morphine Sulfate (morphine) 2 mg Q4H PRN IV SEVERE PAIN LEVEL 7-10; Start 07/06 at 16:30 Labetalol HCl (Labetalol) 10 mg Q2 PRN IV SBP>160; Start 07/06/17 at 16:30 Nicotine (Nicoderm 14 Mg/ 24hr) 1 patch DAILY TRANSDERM Last administered on 09:59; Admin Dose 1 PATCH; Start 07/06/17 at 17:00 Famotidine (Pepcid Iv) 20 mg Q12 IV Last administered on 07/11/17 09:57; Admin Dose 20 MG; Start 07/09/17 at 21:00 Cyanocobalamin (Vitamin B12) 500 mcg DAILY PO Last administered on 07/11/17 09 :58; Admin Dose 500 MCG; Start 07/10/17 at 09:00 Atorvastatin Calcium (Lipitor) 80 mg DAILY PO Last administered on 07/11/17 09 :58; Admin Dose 80 MG; Start 07/10/17 at 09:00 Carvedilol (Coreg) 3.125 mg BID GTB Last administered on 07/11/17 09:57; Admin Dose 3.125 MG; Start 07/10/17 at 09:00 Assessment/Plan Chief Complaint/Hosp Course Assessment 1. Severe ischemic cardiomyopathy with underlying coronary artery disease 2. History of COPD Plan 1. Patient to be transferred to contracted HMO and/or tertiary care center 2. Will need preop pulmonary function testing Problems: GORDON STEPHEN MD, [facility] Jul 11, 2017 12:19
--- NOTE | 2017-07-11 15:35 | PN ---
Date/Time of Note Date/Time of Note DATE: 07/11/17 TIME: 15:34 Assessment/Plan VTE Prophylaxis VTE Prophylaxis Intervention: heparin Lines/Catheters IV Catheter Type (from Nrs): Peripheral IV Urinary Cath still in place: No Assessment/Plan Chief Complaint/Hosp Course 67 yo male with COPD, tobacco use d/o, etoh use d/o, presenting wtih NSTEMI, found to have acute systolic CHF exacerbation EF 15% and 3x vessel disease, pending CABG. Needs to transfer to tertiary center Acute systolic CHF exacerbation: - Continue diuresis, 20 IV lasix BID - Coreg started - DEYANIRA or ARB/yoel indicated NSTEMI, 3x vessel CAD - CABG pending at [facility] - Heparin gtt - Statin Tobacoo use d/o: - Cessation advised B12 defiiecny anemia; - supplement B12 Etoh use d/o: - Cessation advised Trasnfer pending Problems: Subjective 24 Hr Interval Summary Free Text/Dictation Breathing improved somehwat, thoguh still mildly hypoxic, mild cough Exam/Review of Systems Vital Signs Vitals Vital Signs Date Time Temp Pulse Resp B/P Pulse Ox O2 Delivery O2 Flow Rate FiO2 07/11/17 15:21 98.1 78 18 103/71 97 07/11/17 13:57 Nasal Cannula 2.0 07/11/17 08:15 21 Intake and Output 07/10/17 07/10/17 07/11/17 15:00 23:00 07:00 Intake Total 960 ml 360 ml 811 ml Output Total 1850 ml 500 ml Balance -890 ml -140 ml 811 ml Exam ++ JVD Comfortable Breathing nonlabored No peripheral edmea Results Result Diagram: 07/09/17 0635 07/10/17 0355 Results 24 hrs Laboratory Tests Test 07/10/17 19:10 07/11/17 02:07 07/11/17 09:38 Activated Partial Thromboplast Time 64.0 H 38.3 H 122.1 *H Medications Medications Current Medications Aspirin (Halfprin) 81 mg DAILY PO Last administered on 07/11/17t 09:58; Admin Dose 81 MG; Start 07/07/17 at 09:00 Hydralazine HCl (Apresoline) 20 mg Q6H PRN IV prn SBP > 160; Start 07/06/17 at 15:00 Losartan Potassium (Cozaar) 25 mg DAILY PO Last administered on 07/08/17 09:25 ; Admin Dose 25 MG; Start 07/06/17 at 15:00; Status Future Hold Ondansetron HCl (Zofran Inj) 4 mg Q6H PRN IV NAUSEA AND/OR VOMITING; Start at 16:30 Morphine Sulfate (morphine) 2 mg Q4H PRN IV SEVERE PAIN LEVEL 7-10; Start 07/06 at 16:30 Labetalol HCl (Labetalol) 10 mg Q2 PRN IV SBP>160; Start 07/06/17 at 16:30 Nicotine (Nicoderm 14 Mg/ 24hr) 1 patch DAILY TRANSDERM Last administered on 09:59; Admin Dose 1 PATCH; Start 07/06/17 at 17:00 Famotidine (Pepcid Iv) 20 mg Q12 IV Last administered on 07/11/17 09:57; Admin Dose 20 MG; Start 07/09/17 at 21:00 Cyanocobalamin (Vitamin B12) 500 mcg DAILY PO Last administered on 07/11/17 09 :58; Admin Dose 500 MCG; Start 07/10/17 at 09:00 Atorvastatin Calcium (Lipitor) 80 mg DAILY PO Last administered on 07/11/17 09 :58; Admin Dose 80 MG; Start 07/10/17 at 09:00 Carvedilol (Coreg) 3.125 mg BID GTB Last administered on 07/11/17 09:57; Admin Dose 3.125 MG; Start 07/10/17 at 09:00 ROSEY MOSQUERA MD Jul 11, 2017 15:35
[2017-07-11] MEDS: ENOXAPARIN 80 MG/0.8 ML SYG SC SCH (22:00)
[2017-07-12] VITALS (12 sets, daily range): BP systolic 106–117; BP diastolic 64–78; PULSE 72–84; RESP 18–19
[2017-07-12] MEDS: PANTOPRAZOLE (EC) 40 MG TAB PO SCH (05:54)
[2017-07-12] MEDS: FUROSEMIDE 20 MG INJ IV SCH (05:55)
[2017-07-12 07:24] LABS: BASOPHILS % 0.4 % (0.0-2.0); EOSINOPHILS # 0.1 10^3/ul (0.0-0.5); EOSINOPHILS % 1.9 % (0.0-7.0); HEMATOCRIT 44.1 % (42.0-52.0); HEMOGLOBIN 15.1 g/dl (14.0-18.0); LYMPHOCYTES # 1.6 10^3/ul (0.8-2.9); LYMPHOCYTES % 23.7 % (15.0-51.0); MEAN CORPUSCULAR HEMOGLOBIN 36.7 pg (29.0-33.0); MEAN CORPUSCULAR HGB CONC 34.2 g/dl (32.0-37.0); MEAN PLATELET VOLUME 10.5 fl (7.4-10.4); MONOCYTES % 14.5 % (0.0-11.0); NEUTROPHIL # 3.9 10^3/ul (1.6-7.5); NEUTROPHILS % 59.1 % (39.0-77.0); PLATELET COUNT 226 10^3/UL (140-415); RED BLOOD COUNT 4.12 10^6/ul (4.70-6.10); RED CELL DISTRIBUTION WIDTH 12.6 % (11.5-14.5); WHITE BLOOD COUNT 6.7 10^3/ul (4.8-10.8)
[2017-07-12] MEDS: ALBUTEROL/IPRATROPIUM (NEB) 3 ML AMP HHN SCH ×3 (07:58→19:10)
[2017-07-12 08:03] LABS: ALBUMIN 3.3 g/dl (3.3-4.9); ALBUMIN/GLOBULIN RATIO 1.03; BILIRUBIN,INDIRECT 0.7 mg/dl (0-1.1); BILIRUBIN,TOTAL 0.7 mg/dl (0.2-1.3); CALCIUM 8.9 mg/dl (8.4-10.2); CREATININE 1.03 mg/dl (0.61-1.24); POTASSIUM 4.7 mmol/L (3.5-5.1); TOTAL PROTEIN 6.5 g/dl (6.1-8.1)
--- NOTE | 2017-07-12 08:07 | PN ---
Date/Time of Note Date/Time of Note DATE: 07/12/17 TIME: 08:06 Assessment/Plan VTE Prophylaxis VTE Prophylaxis Intervention: SCD's Lines/Catheters IV Catheter Type (from Nrsg): Peripheral IV Urinary Cath still in place: No Assessment/Plan Assessment/Plan Non-ST elevation [place] Triple-vessel coronary artery disease Ischemic cardiomyopathy with ejection fraction 15% -Patient status post cardiac catheterization with triple-vessel coronary artery disease as well as severe cardiomyopathy. Will need coronary artery bypass grafting. Spoke to CT surgery and given severe cardiomyopathy, recommendations were for transfer to tertiary [facility] for [facility] heart surgery.. Continue aspirin, heparin, statin therapy, beta-aroldo as heart rate and blood pressure permits and if blood pressure permits, start DEYANIRA inhibitor. d/c lovenox after total of 48 hours - reduce to dvt prohylasix ddose at that time Subjective 24 Hr Interval Summary Free Text/Dictation the patient with no chest pain Exam/Review of Systems Vital Signs Vitals Vital Signs Date Time Temp Pulse Resp B/P Pulse Ox O2 Delivery O2 Flow Rate FiO2 07/12/17 08:00 73 20 92 21 07/12/17 07:47 98.6 106/70 07/11/17 20:00 Nasal Cannula 2.0 Intake and Output 07/11/17 07/11/17 07/12/17 15:00 23:00 07:00 Intake Total 240 ml Output Total 550 ml 1300 ml Balance -550 ml -1060 ml Results Result Diagram: 07/12/17 0704 07/12/17 0704 Results 24 hrs Laboratory Tests Test 07/11/17 09:38 07/11/17 17:40 07/12/17 07:04 Activated Partial Thromboplast Time 122.1 *H 92.6 *H White Blood Count 6.7 Red Blood Count 4.12 L Hemoglobin 15.1 Hematocrit 44.1 Mean Corpuscular Volume 107.0 H Mean Corpuscular Hemoglobin 36.7 H Mean Corpuscular Hemoglobin Concent 34.2 Red Cell Distribution Width 12.6 Platelet Count 226 Mean Platelet Volume 10.5 H Neutrophils % 59.1 Lymphocytes % 23.7 Monocytes % 14.5 H Eosinophils % 1.9 Basophils % 0.4 Nucleated Red Blood Cells % 0.0 Neutrophils # 3.9 Lymphocytes # 1.6 Monocytes # 1.0 H Eosinophils # 0.1 Basophils # 0.0 Nucleated Red Blood Cells # 0.0 Sodium Level 136 Potassium Level 4.7 Chloride Level 97 Carbon Dioxide Level 34 H Anion Gap 10 Blood Urea Nitrogen 12 Creatinine 1.03 Glucose Level 93 Calcium Level 8.9 Total Bilirubin 0.7 Direct Bilirubin 0.00 Indirect Bilirubin 0.7 Aspartate Amino Transf (AST/SGOT) 23 Alanine Aminotransferase (ALT/SGPT) 33 Alkaline Phosphatase 50 Total Protein 6.5 Albumin 3.3 Globulin 3.20 Albumin/Globulin Ratio 1.03 Medications Medications Current Medications Aspirin (Halfprin) 81 mg DAILY PO Last administered on 07/11/17 09:58; Admin Dose 81 MG; Start 07/07/17 at 09:00 Hydralazine HCl (Apresoline) 20 mg Q6H PRN IV prn SBP > 160; Start 07/06/17 at 15:00 Losartan Potassium (Cozaar) 25 mg DAILY PO Last administered on 07/08/17 09:25 ; Admin Dose 25 MG; Start 07/06/17 at 15:00; Status Future Hold Ondansetron HCl (Zofran Inj) 4 mg Q6H PRN IV NAUSEA AND/OR VOMITING; Start at 16:30 Morphine Sulfate (morphine) 2 mg Q4H PRN IV SEVERE PAIN LEVEL 7-10; Start 07/06 at 16:30 Labetalol HCl (Labetalol) 10 mg Q2 PRN IV SBP>160; Start 07/06/17 at 16:30 Nicotine (Nicoderm 14 Mg/ 24hr) 1 patch DAILY TRANSDERM Last administered on 09:59; Admin Dose 1 PATCH; Start 07/06/17 at 17:00 Cyanocobalamin (Vitamin B12) 500 mcg DAILY PO Last administered on 07/11/17 09 :58; Admin Dose 500 MCG; Start 07/10/17 at 09:00 Atorvastatin Calcium (Lipitor) 80 mg DAILY PO Last administered on 07/11/17 09 :58; Admin Dose 80 MG; Start 07/10/17 at 09:00 Carvedilol (Coreg) 3.125 mg BID GTB Last administered on 07/11/17 21:40; Admin Dose 3.125 MG; Start 07/10/17 at 09:00 Enoxaparin Sodium (Lovenox) 75 mg Q12 SC Last administered on 07/11/17 22:00; Admin Dose 75 MG; Start 07/11/17 at 21:00 Pantoprazole (Protonix Tab) 40 mg DAILY@06 PO Last administered on 07/12/17 05 :54; Admin Dose 40 MG; Start 07/12/17 at 06:00 SVITLANA MUNGUIA MD Jul 12, 2017 08:07
[2017-07-12] MEDS: CYANOCOBALAMIN 500 MCG TAB PO SCH (09:16)
[2017-07-12] MEDS: ATORVASTATIN 80 MG TAB PO SCH (09:16)
[2017-07-12] MEDS: ASPIRIN (EC) 81 MG TAB PO SCH (09:16)
[2017-07-12] MEDS: NICOTINE (14 MG/24 HR) PATCH TRANSDERM SCH (09:17)
[2017-07-12] MEDS: ENOXAPARIN 80 MG/0.8 ML SYG SC SCH ×2 (09:21→21:12)
--- NOTE | 2017-07-12 11:12 | CONS ---
Date/Time of Note Date/Time of Note DATE: 07/12/17 TIME: 11:12 Consult Date/Type/Reason Admit Date/Time Jul 06, 2017 at 11:28 Initial Consult Date 07/10/17 Type of Consultation: Pulmonary Subjective Remains comfortable. Denies chest pain or shortness of breath. Objective Vital Signs Date Time Temp Pulse Resp B/P Pulse Ox O2 Delivery O2 Flow Rate FiO2 07/12/17 11:05 98.2 83 19 111/73 94 07/12/17 08:00 21 07/11/17 20:00 Nasal Cannula 2.0 Intake and Output 07/11/17 07/11/17 07/12/17 15:00 23:00 07:00 Intake Total 240 ml Output Total 550 ml 1300 ml Balance -550 ml -1060 ml Exam GENERAL: VITAL SIGNS: per chart NECK: Supple. No JVD or lymphadenopathy. CARDIAC EXAM: S1, S2. No added sounds or murmurs. CHEST: clear bilaterally, No added sounds, rales or wheezes ABDOMEN: Soft, nontender. No guarding or rebound. EXTREMITIES: No cyanosis, clubbing or edema. NEUROLOGIC: Generalized weakness. No focal deficits. Results/Medications Result Diagram: 07/12/17 0704 07/12/17 0704 Results 24 hrs Laboratory Tests Test 07/11/17 17:40 07/12/17 07:04 Activated Partial Thromboplast Time 92.6 *H White Blood Count 6.7 Red Blood Count 4.12 L Hemoglobin 15.1 Hematocrit 44.1 Mean Corpuscular Volume 107.0 H Mean Corpuscular Hemoglobin 36.7 H Mean Corpuscular Hemoglobin Concent 34.2 Red Cell Distribution Width 12.6 Platelet Count 226 Mean Platelet Volume 10.5 H Neutrophils % 59.1 Lymphocytes % 23.7 Monocytes % 14.5 H Eosinophils % 1.9 Basophils % 0.4 Nucleated Red Blood Cells % 0.0 Neutrophils # 3.9 Lymphocytes # 1.6 Monocytes # 1.0 H Eosinophils # 0.1 Basophils # 0.0 Nucleated Red Blood Cells # 0.0 Sodium Level 136 Potassium Level 4.7 Chloride Level 97 Carbon Dioxide Level 34 H Anion Gap 10 Blood Urea Nitrogen 12 Creatinine 1.03 Glucose Level 93 Calcium Level 8.9 Total Bilirubin 0.7 Direct Bilirubin 0.00 Indirect Bilirubin 0.7 Aspartate Amino Transf (AST/SGOT) 23 Alanine Aminotransferase (ALT/SGPT) 33 Alkaline Phosphatase 50 Total Protein 6.5 Albumin 3.3 Globulin 3.20 Albumin/Globulin Ratio 1.03 Medications Current Medications Aspirin (Halfprin) 81 mg DAILY PO Last administered on 07/12/17 09:16; Admin Dose 81 MG; Start 07/07/17 at 09:00 Hydralazine HCl (Apresoline) 20 mg Q6H PRN IV prn SBP > 160; Start 07/06/17 at 15:00 Losartan Potassium (Cozaar) 25 mg DAILY PO Last administered on 07/08/17 09:25 ; Admin Dose 25 MG; Start 07/06/17 at 15:00; Status Future hold Ondansetron HCl (Zofran Inj) 4 mg Q6H PRN IV NAUSEA AND/OR VOMITING; Start at 16:30 Morphine Sulfate (morphine) 2 mg Q4H PRN IV SEVERE PAIN LEVEL 7-10; Start 07/06 at 16:30 Labetalol HCl (Labetalol) 10 mg Q2 PRN IV SBP>160; Start 07/06/17 at 16:30 Nicotine (Nicoderm 14 Mg/ 24hr) 1 patch DAILY TRANSDERM Last administered on 09:17; Admin Dose 1 PATCH; Start 07/06/17 at 17:00 Cyanocobalamin (Vitamin B12) 500 mcg DAILY PO Last administered on 07/12/17 09 :16; Admin Dose 500 MCG; Start 07/10/17 at 09:00 Atorvastatin Calcium (Lipitor) 80 mg DAILY PO Last administered on 07/12/17 09 :16; Admin Dose 80 MG; Start 07/10/17 at 09:00 Carvedilol (Coreg) 3.125 mg BID GTB Last administered on 07/12/17 09:16; Admin Dose 3.125 MG; Start 07/10/17 at 09:00 Enoxaparin Sodium (Lovenox) 75 mg Q12 SC Last administered on 07/12/17 09:21; Admin Dose 75 MG; Start 07/11/17 at 21:00 Pantoprazole (Protonix Tab) 40 mg DAILY@06 PO Last administered on 07/12/17 05 :54; Admin Dose 40 MG; Start 07/12/17 at 06:00 Furosemide (Lasix) 20 mg DAILY PO ; Start 07/13/17 at 09:00 Assessment/Plan Chief Complaint/Hosp Course Assessment 1. Severe ischemic cardiomyopathy with underlying coronary artery disease 2. History of COPD Plan 1. Patient to be transferred to contracted HMO and/or tertiary care center 2. PFTs. Problems: GORDON STEPHEN MD, [facility] Jul 12, 2017 11:12
--- NOTE | 2017-07-12 13:44 | PN ---
Date/Time of Note Date/Time of Note DATE: 07/12/17 TIME: 13:43 Assessment/Plan VTE Prophylaxis VTE Prophylaxis Intervention: LMWH Lines/Catheters IV Catheter Type (from Nrs): Saline Lock Urinary Cath still in place: No Assessment/Plan Chief Complaint/Hosp Course 67 yo male with COPD, tobacco use d/o, etoh use d/o, presenting wtih NSTEMI, found to have acute systolic CHF exacerbation EF 15% and 3x vessel disease, pending CABG. Needs to transfer to tertiary center Acute systolic CHF exacerbation: - Euvolemic, maintenacne 20 PO lasix - Coreg, losartan NSTEMI, 3x vessel CAD - CABG pending at [facility] - Lovenox [place] - Aspirin - Statin Tobacoo use d/o: - Cessation advised B12 defiiecny anemia; - supplement B12 Etoh use d/o: - Cessation advised Trasnfer pending Problems: Subjective 24 Hr Interval Summary Free Text/Dictation Still with couhg Othrewise ok Awaiting transfer to tertiary center for CABG Exam/Review of Systems Vital Signs Vitals Vital Signs Date Time Temp Pulse Resp B/P Pulse Ox O2 Delivery O2 Flow Rate FiO2 07/12/17 12:09 80 07/12/17 11:05 98.2 19 111/73 94 07/12/17 08:00 21 07/11/17 20:00 Nasal Cannula 2.0 Intake and Output 07/11/17 07/11/17 07/12/17 15:00 23:00 07:00 Intake Total 240 ml Output Total 550 ml 1300 ml Balance -550 ml -1060 ml Exam Improved JVD Clear lungs Comfortable Results Result Diagram: 07/12/17 0704 07/12/17 0704 Results 24 hrs Laboratory Tests Test 07/11/17 17:40 07/12/17 07:04 Activated Partial Thromboplast Time 92.6 *H White Blood Count 6.7 Red Blood Count 4.12 L Hemoglobin 15.1 Hematocrit 44.1 Mean Corpuscular Volume 107.0 H Mean Corpuscular Hemoglobin 36.7 H Mean Corpuscular Hemoglobin Concent 34.2 Red Cell Distribution Width 12.6 Platelet Count 226 Mean Platelet Volume 10.5 H Neutrophils % 59.1 Lymphocytes % 23.7 Monocytes % 14.5 H Eosinophils % 1.9 Basophils % 0.4 Nucleated Red Blood Cells % 0.0 Neutrophils # 3.9 Lymphocytes # 1.6 Monocytes # 1.0 H Eosinophils # 0.1 Basophils # 0.0 Nucleated Red Blood Cells # 0.0 Sodium Level 136 Potassium Level 4.7 Chloride Level 97 Carbon Dioxide Level 34 H Anion Gap 10 Blood Urea Nitrogen 12 Creatinine 1.03 Glucose Level 93 Calcium Level 8.9 Total Bilirubin 0.7 Direct Bilirubin 0.00 Indirect Bilirubin 0.7 Aspartate Amino Transf (AST/SGOT) 23 Alanine Aminotransferase (ALT/SGPT) 33 Alkaline Phosphatase 50 Total Protein 6.5 Albumin 3.3 Globulin 3.20 Albumin/Globulin Ratio 1.03 Medications Medications Current Medications Aspirin (Halfprin) 81 mg DAILY PO Last administered on 07/12/17 09:16; Admin Dose 81 MG; Start 07/07/17 at 09:00 Hydralazine HCl (Apresoline) 20 mg Q6H PRN IV prn SBP > 160; Start 07/06/17 at 15:00 Losartan Potassium (Cozaar) 25 mg DAILY PO Last administered on 07/08/17 09:25 ; Admin Dose 25 MG; Start 07/06/17 at 15:00; Status Future hold Ondansetron HCl (Zofran Inj) 4 mg Q6H PRN IV NAUSEA AND/OR VOMITING; Start at 16:30 Morphine Sulfate (morphine) 2 mg Q4H PRN IV SEVERE PAIN LEVEL 7-10; Start 07/06 at 16:30 Labetalol HCl (Labetalol) 10 mg Q2 PRN IV SBP>160; Start 07/06/17 at 16:30 Nicotine (Nicoderm 14 Mg/ 24hr) 1 patch DAILY TRANSDERM Last administered on 09:17; Admin Dose 1 PATCH; Start 07/06/17 at 17:00 Cyanocobalamin (Vitamin B12) 500 mcg DAILY PO Last administered on 07/12/17 09 :16; Admin Dose 500 MCG; Start 07/10/17 at 09:00 Atorvastatin Calcium (Lipitor) 80 mg DAILY PO Last administered on 07/12/17 09 :16; Admin Dose 80 MG; Start 07/10/17 at 09:00 Carvedilol (Coreg) 3.125 mg BID GTB Last administered on 07/12/17 09:16; Admin Dose 3.125 MG; Start 07/10/17 at 09:00 Enoxaparin Sodium (Lovenox) 75 mg Q12 SC Last administered on 07/12/17 09:21; Admin Dose 75 MG; Start 07/11/17 at 21:00 Pantoprazole (Protonix Tab) 40 mg DAILY@06 PO Last administered on 07/12/17 05 :54; Admin Dose 40 MG; Start 07/12/17 at 06:00 Furosemide (Lasix) 20 mg DAILY PO ; Start 07/13/17 at 09:00 ROSEY MOSQUERA MD Jul 12, 2017 13:44
[2017-07-13] VITALS (12 sets, daily range): BP systolic 93–115; BP diastolic 57–70; PULSE 71–86; RESP 17–20
[2017-07-13] MEDS: PANTOPRAZOLE (EC) 40 MG TAB PO SCH (06:37)
[2017-07-13] MEDS: ALBUTEROL/IPRATROPIUM (NEB) 3 ML AMP HHN SCH ×3 (08:01→19:54)
--- NOTE | 2017-07-13 08:19 | PN ---
Date/Time of Note Date/Time of Note DATE: 07/13/17 TIME: 08:18 Assessment/Plan VTE Prophylaxis VTE Prophylaxis Intervention: SCD's Lines/Catheters IV Catheter Type (from Nrsg): Saline Lock Urinary Cath still in place: No Assessment/Plan Assessment/Plan Non-ST elevation [place] Triple-vessel coronary artery disease Ischemic cardiomyopathy with ejection fraction 15% -Patient status post cardiac catheterization with triple-vessel coronary artery disease as well as severe cardiomyopathy. Will need coronary artery bypass grafting. Spoke to CT surgery and given severe cardiomyopathy, recommendations were for transfer to [facility] for open heart surgery.. Continue aspirin, heparin, statin therapy, beta-aroldo as heart rate and blood pressure permits and if blood pressure permits, start DEYANIRA inhibitor. d/c lovenox after total of 48 hours - reduce to dvt prohylasix ddose at that time -awaiting transdfer for cabg Subjective 24 Hr Interval Summary Free Text/Dictation the aptient with no chest pian overnight Exam/Review of Systems Vital Signs Vitals Vital Signs Date Time Temp Pulse Resp B/P Pulse Ox O2 Delivery O2 Flow Rate FiO2 07/13/17 08:04 77 20 96 21 07/13/17 07:54 97.8 97/68 07/12/17 15:06 2.0 07/11/17 20:00 Nasal Cannula Intake and Output 07/12/17 07/12/17 07/13/17 15:00 23:00 07:00 Intake Total 700 ml 400 ml Output Total 1300 ml Balance 700 ml -900 ml Results Result Diagram: 07/12/17 0704 07/12/17 0704 Medications Medications Current Medications Aspirin (Halfprin) 81 mg DAILY PO Last administered on 07/12/17 09:16; Admin Dose 81 MG; Start 07/07/17 at 09:00 Hydralazine HCl (Apresoline) 20 mg Q6H PRN IV prn SBP > 160; Start 07/06/17 at 15:00 Losartan Potassium (Cozaar) 25 mg DAILY PO Last administered on 07/08/17 09:25 ; Admin Dose 25 MG; Start 07/06/17 at 15:00 Ondansetron HCl (Zofran Inj) 4 mg Q6H PRN IV NAUSEA AND/OR VOMITING; Start at 16:30 Morphine Sulfate (morphine) 2 mg Q4H PRN IV SEVERE PAIN LEVEL 7-10; Start 07/06 at 16:30 Labetalol HCl (Labetalol) 10 mg Q2 PRN IV SBP>160; Start 07/06/17 at 16:30 Nicotine (Nicoderm 14 Mg/ 24hr) 1 patch DAILY TRANSDERM Last administered on 09:17; Admin Dose 1 PATCH; Start 07/06/17 at 17:00 Cyanocobalamin (Vitamin B12) 500 mcg DAILY PO Last administered on 07/12/17 09 :16; Admin Dose 500 MCG; Start 07/10/17 at 09:00 Atorvastatin Calcium (Lipitor) 80 mg DAILY PO Last administered on 07/12/17 09 :16; Admin Dose 80 MG; Start 07/10/17 at 09:00 Carvedilol (Coreg) 3.125 mg BID GTB Last administered on 07/12/17 20:50; Admin Dose 3.125 MG; Start 07/10/17 at 09:00 Enoxaparin Sodium (Lovenox) 75 mg Q12 SC Last administered on 07/12/17 21:12; Admin Dose 75 MG; Start 07/11/17 at 21:00 Pantoprazole (Protonix Tab) 40 mg DAILY@06 PO Last administered on 07/13/17 06 :37; Admin Dose 40 MG; Start 07/12/17 at 06:00 Furosemide (Lasix) 20 mg DAILY PO ; Start 07/13/17 at 09:00 SVITLANA MUNGUIA MD Jul 13, 2017 08:19
[2017-07-13] MEDS: CYANOCOBALAMIN 500 MCG TAB PO SCH (08:20)
[2017-07-13] MEDS: ATORVASTATIN 80 MG TAB PO SCH (08:21)
[2017-07-13] MEDS: ASPIRIN (EC) 81 MG TAB PO SCH (08:21)
[2017-07-13] MEDS: NICOTINE (14 MG/24 HR) PATCH TRANSDERM SCH (08:22)
[2017-07-13] MEDS: FUROSEMIDE 20 MG TAB PO SCH (09:00)
[2017-07-13] MEDS: LOSARTAN 25 MG TAB PO SCH (09:02)
[2017-07-13] MEDS: ENOXAPARIN 30 MG/0.3 ML SYG SC SCH (09:08)
[2017-07-13 11:17] LABS: CREATININE 0.95 mg/dl (0.61-1.24); POTASSIUM 4.5 mmol/L (3.5-5.1)
--- NOTE | 2017-07-13 14:37 | PN ---
Date/Time of Note Date/Time of Note DATE: 07/13/17 TIME: 14:36 Assessment/Plan VTE Prophylaxis VTE Prophylaxis Intervention: LMWH Lines/Catheters IV Catheter Type (from Nrs): Saline Lock Urinary Cath still in place: No Assessment/Plan Chief Complaint/Hosp Course 67 yo male with COPD, tobacco use d/o, etoh use d/o, presenting wtih NSTEMI, found to have acute systolic CHF exacerbation EF 15% and 3x vessel disease, pending CABG. Needs to transfer to tertiary center Acute systolic CHF exacerbation: - Euvolemic, maintenacne 20 PO lasix - Coreg, losartan NSTEMI, 3x vessel CAD - CABG pending at [facility] - Lovenox [place] - Aspirin - Statin Tobacoo use d/o: - Cessation advised B12 defiiecny anemia; - supplement B12 Etoh use d/o: - Cessation advised Trasnfer pending Problems: Subjective 24 Hr Interval Summary Free Text/Dictation No change to clinical status Awaiting transfer to tertiary center Exam/Review of Systems Vital Signs Vitals Vital Signs Date Time Temp Pulse Resp B/P Pulse Ox O2 Delivery O2 Flow Rate FiO2 07/13/17 12:31 86 07/13/17 11:28 98.2 20 93/59 100 07/13/17 08:04 21 07/12/17 15:06 2.0 07/11/17 20:00 Nasal Cannula Intake and Output 07/12/17 07/12/17 07/13/17 15:00 23:00 07:00 Intake Total 700 ml 400 ml Output Total 1300 ml Balance 700 ml -900 ml Exam Constitutional: alert, oriented, well developed Psych: nl mood/affect, no complaints Head: atraumatic, normocephalic Eyes: EOMI, PERRL, nl conjunctiva, nl lids, nl sclera ENMT: nl external ears & nose, nl lips & teeth, nl nasal mucosa & septum Neck: non-tender, supple Respiratory: clear to auscultation, normal air movement Cardiovascular: nl pulses, regular rate and rhythm Gastrointestinal: nl liver, spleen, non-tender, soft Musculoskeletal: nl extremities to inspection, nl gait and stance Extremities: normal pulses 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, nl mental status, nl speech, nl strength Skin: nl turgor, No rash or lesions Lymph: nl lymph nodes Results Result Diagram: 07/12/17 0704 07/13/17 1024 Results 24 hrs Laboratory Tests Test 07/13/17 10:24 Sodium Level 138 Potassium Level 4.5 Chloride Level 101 Carbon Dioxide Level 31 Anion Gap 11 Blood Urea Nitrogen 12 Creatinine 0.95 Glucose Level 82 Calcium Level 9.0 Medications Medications Current Medications Aspirin (Halfprin) 81 mg DAILY PO Last administered on 07/13/17 08:21; Admin Dose 81 MG; Start 07/07/17 at 09:00 Hydralazine HCl (Apresoline) 20 mg Q6H PRN IV prn SBP > 160; Start 07/06/17 at 15:00 Losartan Potassium (Cozaar) 25 mg DAILY PO Last administered on 07/13/17 09:02 ; Admin Dose 25 MG; Start 07/06/17 at 15:00 Ondansetron HCl (Zofran Inj) 4 mg Q6H PRN IV NAUSEA AND/OR VOMITING; Start at 16:30 Morphine Sulfate (morphine) 2 mg Q4H PRN IV SEVERE PAIN LEVEL 7-10; Start 07/06 at 16:30 Labetalol HCl (Labetalol) 10 mg Q2 PRN IV SBP>160; Start 07/06/17 at 16:30 Nicotine (Nicoderm 14 Mg/ 24hr) 1 patch DAILY TRANSDERM Last administered on 08:22; Admin Dose 1 PATCH; Start 07/06/17 at 17:00 Cyanocobalamin (Vitamin B12) 500 mcg DAILY PO Last administered on 07/13/17 08 :20; Admin Dose 500 MCG; Start 07/10/17 at 09:00 Atorvastatin Calcium (Lipitor) 80 mg DAILY PO Last administered on 07/13/17 08 :21; Admin Dose 80 MG; Start 07/10/17 at 09:00 Carvedilol (Coreg) 3.125 mg BID GTB Last administered on 07/13/17 09:02; Admin Dose 3.125 MG; Start 07/10/17 at 09:00 Pantoprazole (Protonix Tab) 40 mg DAILY@06 PO Last administered on 07/13/17 06 :37; Admin Dose 40 MG; Start 07/12/17 at 06:00 Furosemide (Lasix) 20 mg DAILY PO ; Start 10/6/17 at 09:00 Enoxaparin Sodium (Lovenox) 30 mg QAM SC Last administered on 07/13/17t 09:08; Admin Dose 30 MG; Start 07/13/17 at 09:00 ROSEY MOSQUERA MD Jul 13, 2017 14:37
[2017-07-14] VITALS (11 sets, daily range): BP systolic 98–109; BP diastolic 59–72; PULSE 68–81; RESP 18–20
[2017-07-14] MEDS: PANTOPRAZOLE (EC) 40 MG TAB PO SCH (06:00)
[2017-07-14] MEDS: ALBUTEROL/IPRATROPIUM (NEB) 3 ML AMP HHN SCH ×3 (08:16→19:30)
[2017-07-14] MEDS: ATORVASTATIN 80 MG TAB PO SCH (09:33)
[2017-07-14] MEDS: CYANOCOBALAMIN 500 MCG TAB PO SCH (09:33)
[2017-07-14] MEDS: ASPIRIN (EC) 81 MG TAB PO SCH (09:33)
[2017-07-14] MEDS: LOSARTAN 25 MG TAB PO SCH (09:34)
[2017-07-14] MEDS: FUROSEMIDE 20 MG TAB PO SCH (09:34)
[2017-07-14] MEDS: ENOXAPARIN 30 MG/0.3 ML SYG SC SCH (09:42)
[2017-07-14] MEDS: NICOTINE (14 MG/24 HR) PATCH TRANSDERM SCH (09:46)
--- NOTE | 2017-07-14 14:12 | PN ---
Date/Time of Note Date/Time of Note DATE: 07/14/17 TIME: 14:12 Assessment/Plan VTE Prophylaxis VTE Prophylaxis Intervention: LMWH Lines/Catheters IV Catheter Type (from Nrs): Peripheral IV Urinary Cath still in place: No Assessment/Plan Chief Complaint/Hosp Course 67 yo male with COPD, tobacco use d/o, etoh use d/o, presenting wtih NSTEMI, found to have acute systolic CHF exacerbation EF 15% and 3x vessel disease, pending CABG. Needs to transfer to tertiary center Acute systolic CHF exacerbation: - Euvolemic, maintenacne 20 PO lasix - Coreg, losartan NSTEMI, 3x vessel CAD - CABG pending at [facility] - Lovenox [place] - Aspirin - Statin [place] use d/o: - Cessation advised B12 defiiecny anemia; - supplement B12 Etoh use d/o: - Cessation advised Trasnfer pending Problems: Subjective 24 Hr Interval Summary Free Text/Dictation No change to clinical status Awating placement for CABG Exam/Review of Systems Vital Signs Vitals Vital Signs Date Time Temp Pulse Resp B/P Pulse Ox O2 Delivery O2 Flow Rate FiO2 07/14/17 13:05 75 18 97 21 07/14/17 12:19 98.0 103/60 07/12/17 15:06 2.0 07/11/17 20:00 Nasal Cannula Intake and Output 07/13/17 07/13/17 07/14/17 15:00 23:00 07:00 Intake Total 980 ml 400 ml Balance 980 ml 400 ml Exam Constitutional: alert, oriented, well developed Psych: nl mood/affect, no complaints Head: atraumatic, normocephalic Eyes: EOMI, PERRL, nl conjunctiva, nl lids, nl sclera ENMT: nl external ears & nose, nl lips & teeth, nl nasal mucosa & septum Neck: non-tender, supple Respiratory: clear to auscultation, normal air movement Cardiovascular: nl pulses, regular rate and rhythm Gastrointestinal: nl liver, spleen, non-tender, soft Musculoskeletal: nl extremities to inspection, nl gait and stance Extremities: normal pulses 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, nl mental status, nl speech, nl strength Skin: nl turgor, No rash or lesions Lymph: nl lymph nodes Results Result Diagram: 07/12/17 0704 07/13/17 1024 Medications Medications Current Medications Aspirin (Halfprin) 81 mg DAILY PO Last administered on 07/14/17 09:33; Admin Dose 81 MG; Start 07/07/17 at 09:00 Hydralazine HCl (Apresoline) 20 mg Q6H PRN IV prn SBP > 160; Start 07/06/17 at 15:00 Losartan Potassium (Cozaar) 25 mg DAILY PO Last administered on 07/14/17 09:34 ; Admin Dose 25 MG; Start 07/06/17 at 15:00 Ondansetron HCl (Zofran Inj) 4 mg Q6H PRN IV NAUSEA AND/OR VOMITING; Start at 16:30 Morphine Sulfate (morphine) 2 mg Q4H PRN IV SEVERE PAIN LEVEL 7-10; Start 07/06 at 16:30 Labetalol HCl (Labetalol) 10 mg Q2 PRN IV SBP>160; Start 07/06/17 at 16:30 Nicotine (Nicoderm 14 Mg/ 24hr) 1 patch DAILY TRANSDERM Last administered on 09:46; Admin Dose 1 PATCH; Start 07/06/17 at 17:00 Cyanocobalamin (Vitamin B12) 500 mcg DAILY PO Last administered on 07/14/17 09 :33; Admin Dose 500 MCG; Start 07/10/17 at 09:00 Atorvastatin Calcium (Lipitor) 80 mg DAILY PO Last administered on 07/14/17 09 :33; Admin Dose 80 MG; Start 07/10/17 at 09:00 Carvedilol (Coreg) 3.125 mg BID GTB Last administered on 07/14/17 09:34; Admin Dose 3.125 MG; Start 07/10/17 at 09:00 Pantoprazole (Protonix Tab) 40 mg DAILY@06 PO Last administered on 07/14/17 06 :00; Admin Dose 40 MG; Start 07/12/17 at 06:00 Furosemide (Lasix) 20 mg DAILY PO Last administered on 07/14/17 09:34; Admin Dose 20 MG; Start 07/13/17 at 09:00 Enoxaparin Sodium (Lovenox) 30 mg QAM SC Last administered on 07/14/17 09:42; Admin Dose 30 MG; Start 07/13/17 at 09:00 ORSEY MOSQUERA MD Jul 14, 2017 14:12
--- NOTE | 2017-07-14 18:33 | CONS ---
Date/Time of Note Date/Time of Note DATE: 07/14/17 TIME: 18:32 Consult Date/Type/Reason Admit Date/Time Jul 06, 2017 at 11:28 Initial Consult Date 07/10/17 Type of Consultation: card Subjective S: D/W staff and rhythm was reviewed. pt denies any cp to me now he remains in NSR O: \gen: no acute distress HEENT NCAT, pupils are equal Neck No stridor pulm: no wheezing anteriorly. GI: soft NT ND. Ext trace edema neuro awake and alert psych calm now derm no active bleeding Objective Vital Signs Date Time Temp Pulse Resp B/P Pulse Ox O2 Delivery O2 Flow Rate FiO2 07/14/17 16:00 76 07/14/17 15:58 98.0 18 108/72 98 07/14/17 13:05 21 07/12/17 15:06 2.0 07/11/17 20:00 Nasal Cannula Intake and Output 07/13/17 07/13/17 07/14/17 15:00 23:00 07:00 Intake Total 980 ml 400 ml Balance 980 ml 400 ml Results/Medications Result Diagram: 07/12/17 0704 07/13/17 1024 Medications Current Medications Aspirin (Halfprin) 81 mg DAILY PO Last administered on 07/14/17 09:33; Admin Dose 81 MG; Start 07/07/17 at 09:00 Hydralazine HCl (Apresoline) 20 mg Q6H PRN IV prn SBP > 160; Start 07/06/17 at 15:00 Losartan Potassium (Cozaar) 25 mg DAILY PO Last administered on 07/14/17 09:34 ; Admin Dose 25 MG; Start 07/06/17 at 15:00 Ondansetron HCl (Zofran Inj) 4 mg Q6H PRN IV NAUSEA AND/OR VOMITING; Start at 16:30 Morphine Sulfate (morphine) 2 mg Q4H PRN IV SEVERE PAIN LEVEL 7-10; Start 07/06 at 16:30 Labetalol HCl (Labetalol) 10 mg Q2 PRN IV SBP>160; Start 07/06/17 at 16:30 Nicotine (Nicoderm 14 Mg/ 24hr) 1 patch DAILY TRANSDERM Last administered on 09:46; Admin Dose 1 PATCH; Start 07/06/17 at 17:00 Cyanocobalamin (Vitamin B12) 500 mcg DAILY PO Last administered on 07/14/17 09 :33; Admin Dose 500 MCG; Start 07/10/17 at 09:00 Atorvastatin Calcium (Lipitor) 80 mg DAILY PO Last administered on 07/14/17 09 :33; Admin Dose 80 MG; Start 07/10/17 at 09:00 Carvedilol (Coreg) 3.125 mg BID GTB Last administered on 07/14/17 09:34; Admin Dose 3.125 MG; Start 07/10/17 at 09:00 Pantoprazole (Protonix Tab) 40 mg DAILY@06 PO Last administered on 07/14/17 06 :00; Admin Dose 40 MG; Start 07/12/17 at 06:00 Furosemide (Lasix) 20 mg DAILY PO Last administered on 07/14/17 09:34; Admin Dose 20 MG; Start 07/13/17 at 09:00 Enoxaparin Sodium (Lovenox) 30 mg QAM SC Last administered on 07/14/17 09:42; Admin Dose 30 MG; Start 07/13/17 at 09:00 Assessment/Plan Chief Complaint/Hosp Course 1. NSTEMI 2. multivessel CAD 3. htn 4. smoker 5. dyslipidemia 6. hx noncompliance cont current medical therapy awaiting transfer for higher level of care RONEY HORTON MD [facility] Problems: RONEY HORTON MD Jul 14, 2017 18:33
[2017-07-15] VITALS (12 sets, daily range): BP systolic 98–118; BP diastolic 59–69; PULSE 70–78; RESP 16–20
[2017-07-15] MEDS: PANTOPRAZOLE (EC) 40 MG TAB PO SCH (05:42)
[2017-07-15 06:20] LABS: BASOPHILS % 0.4 % (0.0-2.0); EOSINOPHILS # 0.2 10^3/ul (0.0-0.5); EOSINOPHILS % 2.7 % (0.0-7.0); HEMATOCRIT 43.1 % (42.0-52.0); HEMOGLOBIN 14.2 g/dl (14.0-18.0); LYMPHOCYTES # 1.8 10^3/ul (0.8-2.9); LYMPHOCYTES % 26.7 % (15.0-51.0); MEAN CORPUSCULAR HEMOGLOBIN 35.3 pg (29.0-33.0); MEAN CORPUSCULAR HGB CONC 32.9 g/dl (32.0-37.0); MEAN CORPUSCULAR VOLUME 107.2 fl (82.0-101.0); MEAN PLATELET VOLUME 10.5 fl (7.4-10.4); MONOCYTE # 0.9 10^3/ul (0.3-0.9); MONOCYTES % 13.7 % (0.0-11.0); NEUTROPHIL # 3.8 10^3/ul (1.6-7.5); NEUTROPHILS % 56.2 % (39.0-77.0); PLATELET COUNT 240 10^3/UL (140-415); RED BLOOD COUNT 4.02 10^6/ul (4.70-6.10); RED CELL DISTRIBUTION WIDTH 12.7 % (11.5-14.5); WHITE BLOOD COUNT 6.7 10^3/ul (4.8-10.8)
[2017-07-15 07:09] LABS: ALBUMIN/GLOBULIN RATIO 0.96; BILIRUBIN,INDIRECT 0.3 mg/dl (0-1.1); BILIRUBIN,TOTAL 0.3 mg/dl (0.2-1.3); CREATININE 0.91 mg/dl (0.61-1.24); POTASSIUM 4.4 mmol/L (3.5-5.1); TOTAL PROTEIN 6.1 g/dl (6.1-8.1)
[2017-07-15] MEDS: ALBUTEROL/IPRATROPIUM (NEB) 3 ML AMP HHN SCH ×3 (08:06→21:04)
[2017-07-15] MEDS: ATORVASTATIN 80 MG TAB PO SCH (10:04)
[2017-07-15] MEDS: FUROSEMIDE 20 MG TAB PO SCH (10:05)
[2017-07-15] MEDS: ASPIRIN (EC) 81 MG TAB PO SCH (10:06)
[2017-07-15] MEDS: NICOTINE (14 MG/24 HR) PATCH TRANSDERM SCH (10:06)
[2017-07-15] MEDS: CYANOCOBALAMIN 500 MCG TAB PO SCH (10:06)
[2017-07-15] MEDS: ENOXAPARIN 30 MG/0.3 ML SYG SC SCH (10:21)
[2017-07-15] MEDS: LOSARTAN 25 MG TAB PO SCH (10:23)
--- NOTE | 2017-07-15 14:03 | PN ---
Date/Time of Note Date/Time of Note DATE: 07/15/17 TIME: 14:01 Assessment/Plan VTE Prophylaxis VTE Prophylaxis Intervention: LMWH Lines/Catheters IV Catheter Type (from Nrs): Peripheral IV Urinary Cath still in place: No Assessment/Plan Chief Complaint/Hosp Course 67 yo male with COPD, tobacco use d/o, etoh use d/o, presenting wtih NSTEMI, found to have acute systolic CHF exacerbation EF 15% and 3x vessel disease, pending CABG. Needs to transferred to tertiary center, difficulty given no insurance Acute systolic CHF exacerbation: - Euvolemic, maintenacne 20 PO lasix - Coreg 3, losartan 25 NSTEMI, 3x vessel CAD - CABG pending at [facility] - s/p therapeutic lovenox - Aspirin - Statin Tobacoo use d/o: - Cessation advised B12 defiiecny anemia; - supplement B12 Etoh use d/o: - Cessation advised Trasnfer pending to tertiary center for CABG LMWH ppx Problems: Subjective 24 Hr Interval Summary Free Text/Dictation No physical complaints Awaiting transfer Clinical status unchanged Exam/Review of Systems Vital Signs Vitals Vital Signs Date Time Temp Pulse Resp B/P Pulse Ox O2 Delivery O2 Flow Rate FiO2 07/15/17 13:44 72 20 97 21 07/15/17 12:06 97.5 115/63 07/12/17 15:06 2.0 07/11/17 20:00 Nasal Cannula Intake and Output 07/14/17 07/14/17 07/15/17 15:00 23:00 07:00 Intake Total 800 ml 480 ml Output Total 900 ml Balance -100 ml 480 ml Results Result Diagram: 07/15/17 0556 07/15/17 0556 Results 24 hrs Laboratory Tests Test 07/15/17 05:56 White Blood Count 6.7 Red Blood Count 4.02 L Hemoglobin 14.2 Hematocrit 43.1 Mean Corpuscular Volume 107.2 H Mean Corpuscular Hemoglobin 35.3 H Mean Corpuscular Hemoglobin Concent 32.9 Red Cell Distribution Width 12.7 Platelet Count 240 Mean Platelet Volume 10.5 H Neutrophils % 56.2 Lymphocytes % 26.7 Monocytes % 13.7 H Eosinophils % 2.7 Basophils % 0.4 Nucleated Red Blood Cells % 0.0 Neutrophils # 3.8 Lymphocytes # 1.8 Monocytes # 0.9 Eosinophils # 0.2 Basophils # 0.0 Nucleated Red Blood Cells # 0.0 Sodium Level 136 Potassium Level 4.4 Chloride Level 102 Carbon Dioxide Level 30 Anion Gap 8 Blood Urea Nitrogen 10 Creatinine 0.91 Glucose Level 98 Calcium Level 9.0 Total Bilirubin 0.3 Direct Bilirubin 0.00 Indirect Bilirubin 0.3 Aspartate Amino Transf (AST/SGOT) 34 Alanine Aminotransferase (ALT/SGPT) 43 Alkaline Phosphatase 48 Total Protein 6.1 Albumin 3.0 L Globulin 3.10 Albumin/Globulin Ratio 0.96 Medications Medications Current Medications Aspirin (Halfprin) 81 mg DAILY PO Last administered on 07/15/17 10:06; Admin Dose 81 MG; Start 07/07/17 at 09:00 Hydralazine HCl (Apresoline) 20 mg Q6H PRN IV prn SBP > 160; Start 07/06/17 at 15:00 Losartan Potassium (Cozaar) 25 mg DAILY PO Last administered on 07/15/17 10:23 ; Admin Dose 25 MG; Start 07/06/17 at 15:00 Ondansetron HCl (Zofran Inj) 4 mg Q6H PRN IV NAUSEA AND/OR VOMITING; Start at 16:30 Morphine Sulfate (morphine) 2 mg Q4H PRN IV SEVERE PAIN LEVEL 7-10; Start 07/06 at 16:30 Labetalol HCl (Labetalol) 10 mg Q2 PRN IV SBP>160; Start 07/06/17 at 16:30 Nicotine (Nicoderm 14 Mg/ 24hr) 1 patch DAILY TRANSDERM Last administered on 10:06; Admin Dose 1 PATCH; Start 07/06/17 at 17:00 Cyanocobalamin (Vitamin B12) 500 mcg DAILY PO Last administered on 07/15/17 10 :06; Admin Dose 500 MCG; Start 07/10/17 at 09:00 Atorvastatin Calcium (Lipitor) 80 mg DAILY PO Last administered on 07/15/17 10 :04; Admin Dose 80 MG; Start 07/10/17 at 09:00 Carvedilol (Coreg) 3.125 mg BID GTB Last administered on 07/15/17 10:06; Admin Dose 3.125 MG; Start 07/10/17 at 09:00 Pantoprazole (Protonix Tab) 40 mg DAILY@06 PO Last administered on 07/15/17 05 :42; Admin Dose 40 MG; Start 07/12/17 at 06:00 Furosemide (Lasix) 20 mg DAILY PO Last administered on 07/15/17 10:05; Admin Dose 20 MG; Start 07/13/17 at 09:00 Enoxaparin Sodium (Lovenox) 30 mg QAM SC Last administered on 07/15/17 10:21; Admin Dose 30 MG; Start 07/13/17 at 09:00 ROSEY MOSQUERA MD Jul 15, 2017 14:03
--- NOTE | 2017-07-15 18:08 | CONS ---
Date/Time of Note Date/Time of Note DATE: 07/15/17 TIME: 18:07 Consult Date/Type/Reason Admit Date/Time Jul 06, 2017 at 11:28 Initial Consult Date 07/10/17 Type of Consultation: card Subjective S: D/W staff and rhythm was reviewed. pt denies any cp to me now he remains in NSR no palpitations O: \gen: no acute distress HEENT NCAT, pupils are equal Neck No stridor pulm: no wheezing anteriorly. GI: soft NT ND. Ext trace edema neuro awake and alert psych calm now derm no active bleeding Objective Vital Signs Date Time Temp Pulse Resp B/P Pulse Ox O2 Delivery O2 Flow Rate FiO2 07/15/17 16:09 73 07/15/17 16:06 98.5 16 98/63 93 07/15/17 13:44 21 07/12/17 15:06 2.0 07/11/17 20:00 Nasal Cannula Intake and Output 07/14/17 07/14/17 07/15/17 15:00 23:00 07:00 Intake Total 800 ml 480 ml Output Total 900 ml Balance -100 ml 480 ml Results/Medications Result Diagram: 07/15/17 0556 07/15/17 0556 Results 24 hrs Laboratory Tests Test 07/15/17 05:56 White Blood Count 6.7 Red Blood Count 4.02 L Hemoglobin 14.2 Hematocrit 43.1 Mean Corpuscular Volume 107.2 H Mean Corpuscular Hemoglobin 35.3 H Mean Corpuscular Hemoglobin Concent 32.9 Red Cell Distribution Width 12.7 Platelet Count 240 Mean Platelet Volume 10.5 H Neutrophils % 56.2 Lymphocytes % 26.7 Monocytes % 13.7 H Eosinophils % 2.7 Basophils % 0.4 Nucleated Red Blood Cells % 0.0 Neutrophils # 3.8 Lymphocytes # 1.8 Monocytes # 0.9 Eosinophils # 0.2 Basophils # 0.0 Nucleated Red Blood Cells # 0.0 Sodium Level 136 Potassium Level 4.4 Chloride Level 102 Carbon Dioxide Level 30 Anion Gap 8 Blood Urea Nitrogen 10 Creatinine 0.91 Glucose Level 98 Calcium Level 9.0 Total Bilirubin 0.3 Direct Bilirubin 0.00 Indirect Bilirubin 0.3 Aspartate Amino Transf (AST/SGOT) 34 Alanine Aminotransferase (ALT/SGPT) 43 Alkaline Phosphatase 48 Total Protein 6.1 Albumin 3.0 L Globulin 3.10 Albumin/Globulin Ratio 0.96 Medications Current Medications Aspirin (Halfprin) 81 mg DAILY PO Last administered on 07/15/17 10:06; Admin Dose 81 MG; Start 07/07/17 at 09:00 Hydralazine HCl (Apresoline) 20 mg Q6H PRN IV prn SBP > 160; Start 07/06/17 at 15:00 Losartan Potassium (Cozaar) 25 mg DAILY PO Last administered on 07/15/17 10:23 ; Admin Dose 25 MG; Start 07/06/17 at 15:00 Ondansetron HCl (Zofran Inj) 4 mg Q6H PRN IV NAUSEA AND/OR VOMITING; Start at 16:30 Morphine Sulfate (morphine) 2 mg Q4H PRN IV SEVERE PAIN LEVEL 7-10; Start 07/06 at 16:30 Labetalol HCl (Labetalol) 10 mg Q2 PRN IV SBP>160; Start 07/06/17 at 16:30 Nicotine (Nicoderm 14 Mg/ 24hr) 1 patch DAILY TRANSDERM Last administered on 10:06; Admin Dose 1 PATCH; Start 07/06/17 at 17:00 Cyanocobalamin (Vitamin B12) 500 mcg DAILY PO Last administered on 07/15/17 10 :06; Admin Dose 500 MCG; Start 07/10/17 at 09:00 Atorvastatin Calcium (Lipitor) 80 mg DAILY PO Last administered on 07/15/17 10 :04; Admin Dose 80 MG; Start 07/10/17 at 09:00 Carvedilol (Coreg) 3.125 mg BID GTB Last administered on 07/15/17 10:06; Admin Dose 3.125 MG; Start 07/10/17 at 09:00 Pantoprazole (Protonix Tab) 40 mg DAILY@06 PO Last administered on 07/15/17 05 :42; Admin Dose 40 MG; Start 07/12/17 at 06:00 Furosemide (Lasix) 20 mg DAILY PO Last administered on 07/15/17 10:05; Admin Dose 20 MG; Start 07/13/17 at 09:00 Enoxaparin Sodium (Lovenox) 30 mg QAM SC Last administered on 07/15/17 10:21; Admin Dose 30 MG; Start 10/6/17 at 09:00 Assessment/Plan Chief Complaint/Hosp Course 1. NSTEMI 2. multivessel CAD 3. htn 4. smoker 5. dyslipidemia 6. hx noncompliance cont current medical therapy awaiting transfer for higher level of care Dr granados will f/u tomorrow. RONEY HORTON MD [facility] Problems: RONEY HORTON MD Jul 15, 2017 18:08
[2017-07-16] VITALS (11 sets, daily range): BP systolic 97–117; BP diastolic 56–68; PULSE 64–86; RESP 18–20
[2017-07-16] MEDS: PANTOPRAZOLE (EC) 40 MG TAB PO SCH (05:31)
[2017-07-16] MEDS: ALBUTEROL/IPRATROPIUM (NEB) 3 ML AMP HHN SCH ×3 (08:00→20:45)
[2017-07-16] MEDS: ASPIRIN (EC) 81 MG TAB PO SCH (09:44)
[2017-07-16] MEDS: LOSARTAN 25 MG TAB PO SCH (09:45)
[2017-07-16] MEDS: ATORVASTATIN 80 MG TAB PO SCH (09:46)
[2017-07-16] MEDS: CYANOCOBALAMIN 500 MCG TAB PO SCH (09:46)
[2017-07-16] MEDS: FUROSEMIDE 20 MG TAB PO SCH (09:46)
[2017-07-16] MEDS: ENOXAPARIN 30 MG/0.3 ML SYG SC SCH (09:47)
[2017-07-16] MEDS: NICOTINE (14 MG/24 HR) PATCH TRANSDERM SCH (09:48)
--- NOTE | 2017-07-16 16:46 | PN ---
Date/Time of Note Date/Time of Note DATE: 07/16/17 TIME: 16:42 Assessment/Plan VTE Prophylaxis VTE Prophylaxis Intervention: LMWH Lines/Catheters IV Catheter Type (from Nrs): Saline Lock Urinary Cath still in place: No Assessment/Plan Chief Complaint/Hosp Course 1. NSTEMI, 3x vessel CAD - CABG pending at [facility], insurance pending - s/p therapeutic lovenox - Aspirin - Statin 2. Acute systolic CHF exacerbation: EF at 15%-stable - Euvolemic, continue Lasix, Coreg and losartan 3. 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 B12 defiiecny anemia; - supplement B12 5. Etoh use d/o: - Cessation advised Prophylaxis: Lovenox Problems: Subjective 24 Hr Interval Summary Constitutional: no complaints Exam/Review of Systems Vital Signs Vitals Vital Signs Date Time Temp Pulse Resp B/P Pulse Ox O2 Delivery O2 Flow Rate FiO2 07/16/17 16:15 72 07/16/17 14:59 97.6 18 97/56 95 07/16/17 13:55 21 07/12/17 15:06 2.0 Intake and Output 07/15/17 07/15/17 07/16/17 15:00 23:00 07:00 Intake Total 1000 ml 500 ml Output Total 1000 ml Balance 1000 ml -500 ml Exam Constitutional: alert, oriented Respiratory: clear to auscultation Cardiovascular: regular rate and rhythm Gastrointestinal: soft, No distended Musculoskeletal: nl extremities to inspection Results Result Diagram: 07/15/17 0556 07/15/17 0556 Medications Medications Current Medications Aspirin (Halfprin) 81 mg DAILY PO Last administered on 07/16/17 09:44; Admin Dose 81 MG; Start 07/07/17 at 09:00 Hydralazine HCl (Apresoline) 20 mg Q6H PRN IV prn SBP > 160; Start 07/06/17 at 15:00 Losartan Potassium (Cozaar) 25 mg DAILY PO Last administered on 07/16/17 09:45 ; Admin Dose 25 MG; Start 07/06/17 at 15:00 Ondansetron HCl (Zofran Inj) 4 mg Q6H PRN IV NAUSEA AND/OR VOMITING; Start at 16:30 Morphine Sulfate (morphine) 2 mg Q4H PRN IV SEVERE PAIN LEVEL 7-10; Start 07/06 at 16:30 Labetalol HCl (Labetalol) 10 mg Q2 PRN IV SBP>160; Start 07/06/17 at 16:30 Nicotine (Nicoderm 14 Mg/ 24hr) 1 patch DAILY TRANSDERM Last administered on 09:48; Admin Dose 1 PATCH; Start 07/06/17 at 17:00 Cyanocobalamin (Vitamin B12) 500 mcg DAILY PO Last administered on 07/16/17 09 :46; Admin Dose 500 MCG; Start 07/10/17 at 09:00 Atorvastatin Calcium (Lipitor) 80 mg DAILY PO Last administered on 07/16/17 09 :46; Admin Dose 80 MG; Start 07/10/17 at 09:00 Carvedilol (Coreg) 3.125 mg BID GTB Last administered on 07/16/17 09:46; Admin Dose 3.125 MG; Start 07/10/17 at 09:00 Pantoprazole (Protonix Tab) 40 mg DAILY@06 PO Last administered on 07/16/17 05 :31; Admin Dose 40 MG; Start 07/12/17 at 06:00 Furosemide (Lasix) 20 mg DAILY PO Last administered on 07/16/17 09:46; Admin Dose 20 MG; Start 07/13/17 at 09:00 Enoxaparin Sodium (Lovenox) 30 mg QAM SC Last administered on 07/16/17 09:47; Admin Dose 30 MG; Start 07/13/17 at 09:00 LAVELLE YOST Jul 16, 2017 16:46
--- NOTE | 2017-07-16 18:05 | PN ---
Date/Time of Note Date/Time of Note DATE: 07/16/17 TIME: 18:03 Assessment/Plan VTE Prophylaxis VTE Prophylaxis Intervention: SCD's Lines/Catheters IV Catheter Type (from Nrsg): Saline Lock Urinary Cath still in place: No Assessment/Plan Assessment/Plan Non-ST elevation GA Triple-vessel coronary artery disease Ischemic cardiomyopathy with ejection fraction 15% -Patient status post cardiac catheterization with triple-vessel coronary artery disease as well as severe cardiomyopathy. Will need coronary artery bypass grafting. Spoke to CT surgery and given severe cardiomyopathy, recommendations were for transfer to [facility] for open heart surgery.. Continue aspirin, heparin, statin therapy, beta-aroldo as heart rate and blood pressure permits and if blood pressure permits, start DEYANIRA inhibitor. d/c lovenox after total of 48 hours - reduce to dvt prohylasix ddose at that time -awaiting transdfer for cabg Subjective 24 Hr Interval Summary Free Text/Dictation The patient with no chest pain and stable Exam/Review of Systems Vital Signs Vitals Vital Signs Date Time Temp Pulse Resp B/P Pulse Ox O2 Delivery O2 Flow Rate FiO2 07/16/17 16:15 72 07/16/17 14:59 97.6 18 97/56 95 07/16/17 13:55 21 07/12/17 15:06 2.0 Intake and Output 07/15/17 07/15/17 07/16/17 15:00 23:00 07:00 Intake Total 1000 ml 500 ml Output Total 1000 ml Balance 1000 ml -500 ml Results Result Diagram: 07/15/17 0556 07/15/17 0556 Medications Medications Current Medications Aspirin (Halfprin) 81 mg DAILY PO Last administered on 07/16/17 09:44; Admin Dose 81 MG; Start 07/07/17 at 09:00 Hydralazine HCl (Apresoline) 20 mg Q6H PRN IV prn SBP > 160; Start 07/06/17 at 15:00 Losartan Potassium (Cozaar) 25 mg DAILY PO Last administered on 07/16/17 09:45 ; Admin Dose 25 MG; Start 07/06/17 at 15:00 Ondansetron HCl (Zofran Inj) 4 mg Q6H PRN IV NAUSEA AND/OR VOMITING; Start at 16:30 Morphine Sulfate (morphine) 2 mg Q4H PRN IV SEVERE PAIN LEVEL 7-10; Start 07/06 at 16:30 Labetalol HCl (Labetalol) 10 mg Q2 PRN IV SBP>160; Start 07/06/17 at 16:30 Nicotine (Nicoderm 14 Mg/ 24hr) 1 patch DAILY TRANSDERM Last administered on 09:48; Admin Dose 1 PATCH; Start 07/06/17 at 17:00 Cyanocobalamin (Vitamin B12) 500 mcg DAILY PO Last administered on 07/16/17 09 :46; Admin Dose 500 MCG; Start 07/10/17 at 09:00 Atorvastatin Calcium (Lipitor) 80 mg DAILY PO Last administered on 07/16/17 09 :46; Admin Dose 80 MG; Start 07/10/17 at 09:00 Carvedilol (Coreg) 3.125 mg BID GTB Last administered on 07/16/17 09:46; Admin Dose 3.125 MG; Start 07/10/17 at 09:00 Pantoprazole (Protonix Tab) 40 mg DAILY@06 PO Last administered on 07/16/17 05 :31; Admin Dose 40 MG; Start 07/12/17 at 06:00 Furosemide (Lasix) 20 mg DAILY PO Last administered on 07/16/17 09:46; Admin Dose 20 MG; Start 07/13/17 at 09:00 Enoxaparin Sodium (Lovenox) 30 mg QAM SC Last administered on 07/16/17 09:47; Admin Dose 30 MG; Start 07/13/17 at 09:00 SVITLANA MUNGUIA MD Jul 16, 2017 18:05
[2017-07-17] VITALS (13 sets, daily range): BP systolic 99–119; BP diastolic 59–72; PULSE 60–118; RESP 16–20
[2017-07-17] MEDS: PANTOPRAZOLE (EC) 40 MG TAB PO SCH (06:07)
[2017-07-17] MEDS: ALBUTEROL/IPRATROPIUM (NEB) 3 ML AMP HHN SCH ×3 (08:26→20:41)
[2017-07-17] MEDS: ASPIRIN (EC) 81 MG TAB PO SCH (09:12)
[2017-07-17] MEDS: ATORVASTATIN 80 MG TAB PO SCH (09:12)
[2017-07-17] MEDS: CYANOCOBALAMIN 500 MCG TAB PO SCH (09:12)
[2017-07-17] MEDS: FUROSEMIDE 20 MG TAB PO SCH (09:12)
[2017-07-17] MEDS: LOSARTAN 25 MG TAB PO SCH (09:13)
[2017-07-17] MEDS: NICOTINE (14 MG/24 HR) PATCH TRANSDERM SCH (09:14)
[2017-07-17] MEDS: ENOXAPARIN 30 MG/0.3 ML SYG SC SCH (09:19)
--- NOTE | 2017-07-17 16:38 | PN ---
Date/Time of Note Date/Time of Note DATE: 07/17/17 TIME: 16:37 Assessment/Plan VTE Prophylaxis VTE Prophylaxis Intervention: LMWH Lines/Catheters IV Catheter Type (from Nrs): Saline Lock Urinary Cath still in place: No Assessment/Plan Chief Complaint/Hosp Course 1. NSTEMI, 3x vessel CAD - CABG pending at [facility], insurance pending - s/p therapeutic lovenox - Aspirin - Statin 2. Acute systolic CHF exacerbation: EF at 15%-stable - Euvolemic, continue Lasix, Coreg and losartan 3. 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 B12 defiiecny anemia; - supplement B12 5. Etoh use d/o: - Cessation advised Prophylaxis: Lovenox Problems: Subjective 24 Hr Interval Summary Constitutional: no complaints Exam/Review of Systems Vital Signs Vitals Vital Signs Date Time Temp Pulse Resp B/P Pulse Ox O2 Delivery O2 Flow Rate FiO2 07/17/17 16:00 72 07/17/17 15:36 98.0 17 106/59 95 07/17/17 14:25 21 Intake and Output 07/16/17 07/16/17 07/17/17 15:00 23:00 07:00 Intake Total 1000 ml 850 ml Output Total 1200 ml 1400 ml Balance -200 ml -550 ml Exam Constitutional: alert, oriented Respiratory: clear to auscultation Cardiovascular: regular rate and rhythm Gastrointestinal: soft, No distended Musculoskeletal: nl extremities to inspection Results Result Diagram: 07/15/17 0556 07/15/17 0556 Medications Medications Current Medications Aspirin (Halfprin) 81 mg DAILY PO Last administered on 07/17/17 09:12; Admin Dose 81 MG; Start 07/07/17 at 09:00 Hydralazine HCl (Apresoline) 20 mg Q6H PRN IV prn SBP > 160; Start 07/06/17 at 15:00 Losartan Potassium (Cozaar) 25 mg DAILY PO Last administered on 07/17/17 09: 13; Admin Dose 25 MG; Start 07/06/17 at 15:00 Ondansetron HCl (Zofran Inj) 4 mg Q6H PRN IV NAUSEA AND/OR VOMITING; Start at 16:30 Morphine Sulfate (morphine) 2 mg Q4H PRN IV SEVERE PAIN LEVEL 7-10; Start 07/06 at 16:30 Labetalol HCl (Labetalol) 10 mg Q2 PRN IV SBP>160; Start 07/06/17 at 16:30 Nicotine (Nicoderm 14 Mg/ 24hr) 1 patch DAILY TRANSDERM Last administered on 09:14; Admin Dose 1 PATCH; Start 07/06/17 at 17:00 Cyanocobalamin (Vitamin B12) 500 mcg DAILY PO Last administered on 07/17/17 09:12; Admin Dose 500 MCG; Start 07/10/17 at 09:00 Atorvastatin Calcium (Lipitor) 80 mg DAILY PO Last administered on 07/17/17 09:12; Admin Dose 80 MG; Start 07/10/17 at 09:00 Carvedilol (Coreg) 3.125 mg BID GTB Last administered on 07/17/17 09:13; Admin Dose 3.125 MG; Start 07/10/17 at 09:00 Pantoprazole (Protonix Tab) 40 mg DAILY@06 PO Last administered on 07/17/17 06:07; Admin Dose 40 MG; Start 07/12/17 at 06:00 Furosemide (Lasix) 20 mg DAILY PO Last administered on 07/17/17 09:12; Admin Dose 20 MG; Start 07/13/17 at 09:00 Enoxaparin Sodium (Lovenox) 30 mg QAM SC Last administered on 07/17/17 09:19 ; Admin Dose 30 MG; Start 07/13/17 at 09:00 LAVELLE YOST Jul 17, 2017 16:38
--- NOTE | 2017-07-17 18:24 | PN ---
Date/Time of Note Date/Time of Note DATE: 07/17/17 TIME: 18:23 Assessment/Plan VTE Prophylaxis VTE Prophylaxis Intervention: SCD's Lines/Catheters IV Catheter Type (from Nrsg): Saline Lock Urinary Cath still in place: No Assessment/Plan Assessment/Plan Non-ST elevation [place] Triple-vessel coronary artery disease Ischemic cardiomyopathy with ejection fraction 15% -Patient status post cardiac catheterization with triple-vessel coronary artery disease as well as severe cardiomyopathy. Will need coronary artery bypass grafting. Spoke to CT surgery and given severe cardiomyopathy, recommendations were for transfer to [facility] for open heart surgery.. Continue aspirin, heparin, statin therapy, beta-aroldo , ARB -awaiting transdfer for cabg Subjective 24 Hr Interval Summary Free Text/Dictation The apitent with no cahnge Exam/Review of Systems Vital Signs Vitals Vital Signs Date Time Temp Pulse Resp B/P Pulse Ox O2 Delivery O2 Flow Rate FiO2 07/17/17 16:00 72 07/17/17 15:36 98.0 17 106/59 95 07/17/17 14:25 21 Intake and Output 07/16/17 07/16/17 07/17/17 15:00 23:00 07:00 Intake Total 1000 ml 850 ml Output Total 1200 ml 1400 ml Balance -200 ml -550 ml Results Result Diagram: 07/15/17 0556 07/15/17 0556 Medications Medications Current Medications Aspirin (Halfprin) 81 mg DAILY PO Last administered on 07/17/17 09:12; Admin Dose 81 MG; Start 07/07/17 at 09:00 Hydralazine HCl (Apresoline) 20 mg Q6H PRN IV prn SBP > 160; Start 07/06/17 at 15:00 Losartan Potassium (Cozaar) 25 mg DAILY PO Last administered on 07/17/17 09: 13; Admin Dose 25 MG; Start 07/06/17 at 15:00 Ondansetron HCl (Zofran Inj) 4 mg Q6H PRN IV NAUSEA AND/OR VOMITING; Start at 16:30 Morphine Sulfate (morphine) 2 mg Q4H PRN IV SEVERE PAIN LEVEL 7-10; Start 07/06 at 16:30 Labetalol HCl (Labetalol) 10 mg Q2 PRN IV SBP>160; Start 07/06/17 at 16:30 Nicotine (Nicoderm 14 Mg/ 24hr) 1 patch DAILY TRANSDERM Last administered on 09:14; Admin Dose 1 PATCH; Start 07/06/17 at 17:00 Cyanocobalamin (Vitamin B12) 500 mcg DAILY PO Last administered on 07/17/17 09:12; Admin Dose 500 MCG; Start 07/10/17 at 09:00 Atorvastatin Calcium (Lipitor) 80 mg DAILY PO Last administered on 07/17/17 09:12; Admin Dose 80 MG; Start 07/10/17 at 09:00 Carvedilol (Coreg) 3.125 mg BID GTB Last administered on 07/17/17 09:13; Admin Dose 3.125 MG; Start 07/10/17 at 09:00 Pantoprazole (Protonix Tab) 40 mg DAILY@06 PO Last administered on 07/17/17 06:07; Admin Dose 40 MG; Start 07/12/17 at 06:00 Furosemide (Lasix) 20 mg DAILY PO Last administered on 07/17/17 09:12; Admin Dose 20 MG; Start 07/13/17 at 09:00 Enoxaparin Sodium (Lovenox) 30 mg QAM SC Last administered on 07/17/17 09:19 ; Admin Dose 30 MG; Start 07/13/17 at 09:00 SVITLANA MUNGUIA MD Jul 17, 2017 18:24
[2017-07-18] VITALS (12 sets, daily range): BP systolic 94–126; BP diastolic 56–67; PULSE 60–81; RESP 16–19
[2017-07-18] MEDS: PANTOPRAZOLE (EC) 40 MG TAB PO SCH (06:06)
[2017-07-18] MEDS: ALBUTEROL/IPRATROPIUM (NEB) 3 ML AMP HHN SCH ×3 (07:32→20:31)
--- NOTE | 2017-07-18 08:38 | PN ---
Date/Time of Note Date/Time of Note DATE: 07/18/17 TIME: 08:37 Assessment/Plan VTE Prophylaxis VTE Prophylaxis Intervention: SCD's Lines/Catheters IV Catheter Type (from Nrsg): Saline Lock Urinary Cath still in place: No Assessment/Plan Assessment/Plan Non-ST elevation [place] Triple-vessel coronary artery disease Ischemic cardiomyopathy with ejection fraction 15% -Patient status post cardiac catheterization with triple-vessel coronary artery disease as well as severe cardiomyopathy. Will need coronary artery bypass grafting. Spoke to CT surgery and given severe cardiomyopathy, recommendations were for transfer to [facility] for open heart surgery.. Continue aspirin, heparin, statin therapy, beta-aroldo , ARB -awaiting transdfer for cabg Subjective 24 Hr Interval Summary Free Text/Dictation The patient wih no change Exam/Review of Systems Vital Signs Vitals Vital Signs Date Time Temp Pulse Resp B/P Pulse Ox O2 Delivery O2 Flow Rate FiO2 07/18/17 08:24 81 07/18/17 07:43 98.1 19 118/62 97 07/17/17 20:51 21 Intake and Output 07/17/17 07/17/17 07/18/17 15:00 23:00 07:00 Intake Total 1200 ml Output Total 1500 ml Balance -300 ml Results Result Diagram: 07/15/17 0556 07/15/17 0556 Medications Medications Current Medications Aspirin (Halfprin) 81 mg DAILY PO Last administered on 07/17/17 09:12; Admin Dose 81 MG; Start 07/07/17 at 09:00 Hydralazine HCl (Apresoline) 20 mg Q6H PRN IV prn SBP > 160; Start 07/06/17 at 15:00 Losartan Potassium (Cozaar) 25 mg DAILY PO Last administered on 07/17/17 09: 13; Admin Dose 25 MG; Start 07/06/17 at 15:00 Ondansetron HCl (Zofran Inj) 4 mg Q6H PRN IV NAUSEA AND/OR VOMITING; Start at 16:30 Morphine Sulfate (morphine) 2 mg Q4H PRN IV SEVERE PAIN LEVEL 7-10; Start 07/06 at 16:30 Labetalol HCl (Labetalol) 10 mg Q2 PRN IV SBP>160; Start 07/06/17 at 16:30 Nicotine (Nicoderm 14 Mg/ 24hr) 1 patch DAILY TRANSDERM Last administered on 09:14; Admin Dose 1 PATCH; Start 07/06/17 at 17:00 Cyanocobalamin (Vitamin B12) 500 mcg DAILY PO Last administered on 07/17/17 09:12; Admin Dose 500 MCG; Start 07/10/17 at 09:00 Atorvastatin Calcium (Lipitor) 80 mg DAILY PO Last administered on 07/17/17 09:12; Admin Dose 80 MG; Start 07/10/17 at 09:00 Carvedilol (Coreg) 3.125 mg BID GTB Last administered on 07/17/17 09:13; Admin Dose 3.125 MG; Start 07/10/17 at 09:00 Pantoprazole (Protonix Tab) 40 mg DAILY@06 PO Last administered on 07/18/17 06:06; Admin Dose 40 MG; Start 07/12/17 at 06:00 Furosemide (Lasix) 20 mg DAILY PO Last administered on 07/17/17 09:12; Admin Dose 20 MG; Start 07/13/17 at 09:00 Enoxaparin Sodium (Lovenox) 30 mg QAM SC Last administered on 07/17/17 09:19 ; Admin Dose 30 MG; Start 07/13/17 at 09:00 SVITLANA MUNGUIA MD Jul 18, 2017 08:38
[2017-07-18] MEDS: CYANOCOBALAMIN 500 MCG TAB PO SCH (08:45)
[2017-07-18] MEDS: FUROSEMIDE 20 MG TAB PO SCH (08:45)
[2017-07-18] MEDS: LOSARTAN 25 MG TAB PO SCH (08:46)
[2017-07-18] MEDS: ATORVASTATIN 80 MG TAB PO SCH (08:46)
[2017-07-18] MEDS: ASPIRIN (EC) 81 MG TAB PO SCH (08:46)
[2017-07-18] MEDS: NICOTINE (14 MG/24 HR) PATCH TRANSDERM SCH (08:47)
[2017-07-18] MEDS: ENOXAPARIN 30 MG/0.3 ML SYG SC SCH (08:53)
--- NOTE | 2017-07-18 19:19 | PN ---
Date/Time of Note Date/Time of Note DATE: 07/18/17 TIME: 19:19 Assessment/Plan VTE Prophylaxis VTE Prophylaxis Intervention: LMWH Lines/Catheters IV Catheter Type (from Nrs): Saline Lock Urinary Cath still in place: No Assessment/Plan Chief Complaint/Hosp Course 1. NSTEMI, 3x vessel CAD - [facility], insurance pending - s/p therapeutic lovenox - Aspirin - Statin 2. Acute systolic CHF exacerbation: EF at 15%-stable - Euvolemic, continue Lasix, Coreg and losartan 3. 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 B12 defiiecny anemia; - supplement B12 5. Etoh use d/o: - Cessation advised Prophylaxis: Lovenox Problems: Subjective 24 Hr Interval Summary Constitutional: no complaints Exam/Review of Systems Vital Signs Vitals Vital Signs Date Time Temp Pulse Resp B/P Pulse Ox O2 Delivery O2 Flow Rate FiO2 07/18/17 16:30 71 07/18/17 16:16 98.0 17 126/56 95 07/18/17 14:17 21 Intake and Output 07/17/17 07/17/17 07/18/17 15:00 23:00 07:00 Intake Total 1200 ml Output Total 1500 ml Balance -300 ml Exam Constitutional: alert, oriented Respiratory: clear to auscultation Cardiovascular: regular rate and rhythm Gastrointestinal: soft, No distended Musculoskeletal: nl extremities to inspection Results Result Diagram: 07/15/17 0556 07/15/17 0556 Medications Medications Current Medications Aspirin (Halfprin) 81 mg DAILY PO Last administered on 07/18/17 08:46; Admin Dose 81 MG; Start 07/07/17 at 09:00 Hydralazine HCl (Apresoline) 20 mg Q6H PRN IV prn SBP > 160; Start 07/06/17 at 15:00 Losartan Potassium (Cozaar) 25 mg DAILY PO Last administered on 07/18/17 08: 46; Admin Dose 25 MG; Start 07/06/17 at 15:00 Ondansetron HCl (Zofran Inj) 4 mg Q6H PRN IV NAUSEA AND/OR VOMITING; Start at 16:30 Morphine Sulfate (morphine) 2 mg Q4H PRN IV SEVERE PAIN LEVEL 7-10; Start 07/06 at 16:30 Labetalol HCl (Labetalol) 10 mg Q2 PRN IV SBP>160; Start 07/06/17 at 16:30 Nicotine (Nicoderm 14 Mg/ 24hr) 1 patch DAILY TRANSDERM Last administered on 08:47; Admin Dose 1 PATCH; Start 07/06/17 at 17:00 Cyanocobalamin (Vitamin B12) 500 mcg DAILY PO Last administered on 07/18/17 08:45; Admin Dose 500 MCG; Start 07/10/17 at 09:00 Atorvastatin Calcium (Lipitor) 80 mg DAILY PO Last administered on 07/18/17 08:46; Admin Dose 80 MG; Start 07/10/17 at 09:00 Carvedilol (Coreg) 3.125 mg BID GTB Last administered on 07/18/17 08:46; Admin Dose 3.125 MG; Start 07/10/17 at 09:00 Pantoprazole (Protonix Tab) 40 mg DAILY@06 PO Last administered on 07/18/17 06:06; Admin Dose 40 MG; Start 07/12/17 at 06:00 Furosemide (Lasix) 20 mg DAILY PO Last administered on 07/18/17 08:45; Admin Dose 20 MG; Start 07/13/17 at 09:00 Enoxaparin Sodium (Lovenox) 30 mg QAM SC Last administered on 07/18/17 08:53 ; Admin Dose 30 MG; Start 07/13/17 at 09:00 LAVELLE YOST Jul 18, 2017 19:19
[2017-07-19] VITALS (12 sets, daily range): BP systolic 98–107; BP diastolic 55–65; PULSE 60–80; RESP 16–18
[2017-07-19] MEDS: PANTOPRAZOLE (EC) 40 MG TAB PO SCH (05:48)
[2017-07-19] MEDS: ALBUTEROL/IPRATROPIUM (NEB) 3 ML AMP HHN SCH ×3 (08:07→20:37)
[2017-07-19] MEDS: CYANOCOBALAMIN 500 MCG TAB PO SCH (08:52)
[2017-07-19] MEDS: FUROSEMIDE 20 MG TAB PO SCH (08:53)
[2017-07-19] MEDS: ATORVASTATIN 80 MG TAB PO SCH (08:53)
[2017-07-19] MEDS: LOSARTAN 25 MG TAB PO SCH (08:53)
[2017-07-19] MEDS: ASPIRIN (EC) 81 MG TAB PO SCH (08:54)
[2017-07-19] MEDS: NICOTINE (14 MG/24 HR) PATCH TRANSDERM SCH (08:55)
[2017-07-19] MEDS: ENOXAPARIN 30 MG/0.3 ML SYG SC SCH (09:24)
--- NOTE | 2017-07-19 15:03 | PN ---
Date/Time of Note Date/Time of Note DATE: 07/19/17 TIME: 15:03 Assessment/Plan VTE Prophylaxis VTE Prophylaxis Intervention: LMWH Lines/Catheters IV Catheter Type (from Nrs): Saline Lock Urinary Cath still in place: No Assessment/Plan Chief Complaint/Hosp Course 1. NSTEMI, 3x vessel CAD - CABG pending at [facility], insurance pending - s/p therapeutic lovenox - Aspirin - Statin 2. Acute systolic CHF exacerbation: EF at 15%-stable - Euvolemic, continue Lasix, Coreg and losartan 3. 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 B12 defiiecny anemia; - supplement B12 5. Etoh use d/o: - Cessation advised Prophylaxis: Lovenox Problems: Subjective 24 Hr Interval Summary Constitutional: no complaints Exam/Review of Systems Vital Signs Vitals Vital Signs Date Time Temp Pulse Resp B/P Pulse Ox O2 Delivery O2 Flow Rate FiO2 07/19/17 13:26 71 18 96 21 07/19/17 11:49 97.9 107/59 Intake and Output 07/18/17 07/18/17 07/19/17 15:00 23:00 07:00 Intake Total 1000 ml Output Total 800 ml Balance 200 ml Exam Constitutional: alert Respiratory: clear to auscultation Cardiovascular: regular rate and rhythm Gastrointestinal: soft, No distended Musculoskeletal: nl extremities to inspection Results Result Diagram: 07/15/17 0556 07/15/17 0556 Medications Medications Current Medications Aspirin (Halfprin) 81 mg DAILY PO Last administered on 07/19/17 08:54; Admin Dose 81 MG; Start 07/07/17 at 09:00 Hydralazine HCl (Apresoline) 20 mg Q6H PRN IV prn SBP > 160; Start 07/06/17 at 15:00 Losartan Potassium (Cozaar) 25 mg DAILY PO Last administered on 07/19/17 08: 53; Admin Dose 25 MG; Start 07/06/17 at 15:00 Ondansetron HCl (Zofran Inj) 4 mg Q6H PRN IV NAUSEA AND/OR VOMITING; Start at 16:30 Morphine Sulfate (morphine) 2 mg Q4H PRN IV SEVERE PAIN LEVEL 7-10; Start 07/06 at 16:30 Labetalol HCl (Labetalol) 10 mg Q2 PRN IV SBP>160; Start 07/06/17 at 16:30 Nicotine (Nicoderm 14 Mg/ 24hr) 1 patch DAILY TRANSDERM Last administered on 08:55; Admin Dose 1 PATCH; Start 07/06/17 at 17:00 Cyanocobalamin (Vitamin B12) 500 mcg DAILY PO Last administered on 07/19/17 08:52; Admin Dose 500 MCG; Start 07/10/17 at 09:00 Atorvastatin Calcium (Lipitor) 80 mg DAILY PO Last administered on 07/19/17 08:53; Admin Dose 80 MG; Start 07/10/17 at 09:00 Carvedilol (Coreg) 3.125 mg BID GTB Last administered on 07/19/17 08:54; Admin Dose 3.125 MG; Start 07/10/17 at 09:00 Pantoprazole (Protonix Tab) 40 mg DAILY@06 PO Last administered on 07/19/17 05:48; Admin Dose 40 MG; Start 07/12/17 at 06:00 Furosemide (Lasix) 20 mg DAILY PO Last administered on 07/19/17 08:53; Admin Dose 20 MG; Start 07/13/17 at 09:00 Enoxaparin Sodium (Lovenox) 30 mg QAM SC Last administered on 07/19/17 09:24 ; Admin Dose 30 MG; Start 07/13/17 at 09:00 LAVELLE YOST Jul 19, 2017 15:03
[2017-07-19] MEDS: NITROGLYCERIN (SL) 0.4 MG TAB SL PRN (19:41)
--- NOTE | 2017-07-19 19:52 | PN ---
Date/Time of Note Date/Time of Note DATE: 07/19/17 TIME: 19:51 Assessment/Plan VTE Prophylaxis VTE Prophylaxis Intervention: SCD's Lines/Catheters IV Catheter Type (from Nrsg): Saline Lock Urinary Cath still in place: No Assessment/Plan Assessment/Plan Non-ST elevation [place] Triple-vessel coronary artery disease Ischemic cardiomyopathy with ejection fraction 15% -Patient status post cardiac catheterization with triple-vessel coronary artery disease as well as severe cardiomyopathy. Will need coronary artery bypass grafting. Spoke to CT surgery and given severe cardiomyopathy, recommendations were for transfer to [facility] for open heart surgery.. Continue aspirin, heparin, statin therapy, beta-aroldo , ARB Subjective 24 Hr Interval Summary Free Text/Dictation the paient with no cahnge Exam/Review of Systems Vital Signs Vitals Vital Signs Date Time Temp Pulse Resp B/P Pulse Ox O2 Delivery O2 Flow Rate FiO2 07/19/17 19:42 98.5 72 16 101/55 95 07/19/17 13:26 21 Intake and Output 07/18/17 07/18/17 07/19/17 15:00 23:00 07:00 Intake Total 1000 ml Output Total 800 ml Balance 200 ml Results Result Diagram: 07/15/17 0556 07/15/17 0556 Medications Medications Current Medications Aspirin (Halfprin) 81 mg DAILY PO Last administered on 07/19/17 08:54; Admin Dose 81 MG; Start 07/07/17 at 09:00 Hydralazine HCl (Apresoline) 20 mg Q6H PRN IV prn SBP > 160; Start 07/06/17 at 15:00 Losartan Potassium (Cozaar) 25 mg DAILY PO Last administered on 07/19/17 08: 53; Admin Dose 25 MG; Start 07/06/17 at 15:00 Ondansetron HCl (Zofran Inj) 4 mg Q6H PRN IV NAUSEA AND/OR VOMITING; Start at 16:30 Morphine Sulfate (morphine) 2 mg Q4H PRN IV SEVERE PAIN LEVEL 7-10; Start 07/06 at 16:30 Labetalol HCl (Labetalol) 10 mg Q2 PRN IV SBP>160; Start 07/06/17 at 16:30 Nicotine (Nicoderm 14 Mg/ 24hr) 1 patch DAILY TRANSDERM Last administered on 08:55; Admin Dose 1 PATCH; Start 07/06/17 at 17:00 Cyanocobalamin (Vitamin B12) 500 mcg DAILY PO Last administered on 07/19/17 08:52; Admin Dose 500 MCG; Start 07/10/17 at 09:00 Atorvastatin Calcium (Lipitor) 80 mg DAILY PO Last administered on 07/19/17 08:53; Admin Dose 80 MG; Start 07/10/17 at 09:00 Carvedilol (Coreg) 3.125 mg BID GTB Last administered on 07/19/17 08:54; Admin Dose 3.125 MG; Start 07/10/17 at 09:00 Pantoprazole (Protonix Tab) 40 mg DAILY@06 PO Last administered on 07/19/17 05:48; Admin Dose 40 MG; Start 07/12/17 at 06:00 Furosemide (Lasix) 20 mg DAILY PO Last administered on 07/19/17 08:53; Admin Dose 20 MG; Start 07/13/17 at 09:00 Enoxaparin Sodium (Lovenox) 30 mg QAM SC Last administered on 07/19/17 09:24 ; Admin Dose 30 MG; Start 07/13/17 at 09:00 SVITLANA MUNGUIA MD Jul 19, 2017 19:52
[2017-07-20] VITALS (12 sets, daily range): BP systolic 90–106; BP diastolic 55–65; PULSE 59–77; RESP 15–20
[2017-07-20] MEDS: PANTOPRAZOLE (EC) 40 MG TAB PO SCH (06:41)
[2017-07-20] MEDS: ALBUTEROL/IPRATROPIUM (NEB) 3 ML AMP HHN SCH ×3 (07:41→19:51)
[2017-07-20] MEDS: ASPIRIN (EC) 81 MG TAB PO SCH (08:54)
[2017-07-20] MEDS: ATORVASTATIN 80 MG TAB PO SCH (08:54)
[2017-07-20] MEDS: CYANOCOBALAMIN 500 MCG TAB PO SCH (08:54)
[2017-07-20] MEDS: FUROSEMIDE 20 MG TAB PO SCH (08:54)
[2017-07-20] MEDS: LOSARTAN 25 MG TAB PO SCH (08:55)
[2017-07-20] MEDS: NICOTINE (14 MG/24 HR) PATCH TRANSDERM SCH (08:55)
[2017-07-20] MEDS: ENOXAPARIN 30 MG/0.3 ML SYG SC SCH (09:03)
--- NOTE | 2017-07-20 14:09 | PN ---
Date/Time of Note Date/Time of Note DATE: 07/20/17 TIME: 14:08 Assessment/Plan VTE Prophylaxis VTE Prophylaxis Intervention: LMWH Lines/Catheters IV Catheter Type (from Nrs): Saline Lock Urinary Cath still in place: No Assessment/Plan Chief Complaint/Hosp Course 1. NSTEMI, 3x vessel CAD - CABG [facility], insurance pending - s/p therapeutic lovenox - Aspirin - Statin 2. Acute systolic CHF exacerbation: EF at 15%-stable - Euvolemic, continue Lasix, Coreg and losartan 3. 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 B12 defiiecny anemia; - supplement B12 5. Etoh use d/o: - Cessation advised Prophylaxis: Lovenox Problems: Subjective 24 Hr Interval Summary Constitutional: no complaints Exam/Review of Systems Vital Signs Vitals Vital Signs Date Time Temp Pulse Resp B/P Pulse Ox O2 Delivery O2 Flow Rate FiO2 07/20/17 13:45 74 18 94 21 07/20/17 11:09 98.0 101/63 07/20/17 06:43 Room Air Intake and Output 07/19/17 07/19/17 07/20/17 15:00 23:00 07:00 Intake Total 1000 ml 1000 ml Output Total 550 ml 1500 ml Balance 450 ml -500 ml Exam Constitutional: alert, oriented Respiratory: clear to auscultation Cardiovascular: regular rate and rhythm Gastrointestinal: soft, No distended Musculoskeletal: nl extremities to inspection Medications Medications Current Medications Aspirin (Halfprin) 81 mg DAILY PO Last administered on 07/20/17 08:54; Admin Dose 81 MG; Start 07/07/17 at 09:00 Hydralazine HCl (Apresoline) 20 mg Q6H PRN IV prn SBP > 160; Start 07/06/17 at 15:00 Losartan Potassium (Cozaar) 25 mg DAILY PO Last administered on 07/20/17 08: 55; Admin Dose 25 MG; Start 07/06/17 at 15:00 Ondansetron HCl (Zofran Inj) 4 mg Q6H PRN IV NAUSEA AND/OR VOMITING; Start at 16:30 Morphine Sulfate (morphine) 2 mg Q4H PRN IV SEVERE PAIN LEVEL 7-10; Start 07/06 at 16:30 Labetalol HCl (Labetalol) 10 mg Q2 PRN IV SBP>160; Start 07/06/17 at 16:30 Nicotine (Nicoderm 14 Mg/ 24hr) 1 patch DAILY TRANSDERM Last administered on 08:55; Admin Dose 1 PATCH; Start 07/06/17 at 17:00 Cyanocobalamin (Vitamin B12) 500 mcg DAILY PO Last administered on 07/20/17 08:54; Admin Dose 500 MCG; Start 07/10/17 at 09:00 Atorvastatin Calcium (Lipitor) 80 mg DAILY PO Last administered on 07/20/17 08:54; Admin Dose 80 MG; Start 07/10/17 at 09:00 Carvedilol (Coreg) 3.125 mg BID GTB Last administered on 07/20/17 08:54; Admin Dose 3.125 MG; Start 07/10/17 at 09:00 Pantoprazole (Protonix Tab) 40 mg DAILY@06 PO Last administered on 07/20/17 06:41; Admin Dose 40 MG; Start 07/12/17 at 06:00 Furosemide (Lasix) 20 mg DAILY PO Last administered on 07/20/17 08:54; Admin Dose 20 MG; Start 07/13/17 at 09:00 Enoxaparin Sodium (Lovenox) 30 mg QAM SC Last administered on 07/20/17 09:03 ; Admin Dose 30 MG; Start 07/13/17 at 09:00 LAVELLE YOST Jul 20, 2017 14:09
[2017-07-21] VITALS (13 sets, daily range): BP systolic 99–107; BP diastolic 57–69; PULSE 59–82; RESP 16–18
[2017-07-21] MEDS: PANTOPRAZOLE (EC) 40 MG TAB PO SCH (05:07)
[2017-07-21] MEDS: ALBUTEROL/IPRATROPIUM (NEB) 3 ML AMP HHN SCH ×3 (08:34→20:45)
[2017-07-21] MEDS: LOSARTAN 25 MG TAB PO SCH (09:00)
[2017-07-21] MEDS: FUROSEMIDE 20 MG TAB PO SCH ×2 (09:00→14:12)
[2017-07-21] MEDS: ATORVASTATIN 80 MG TAB PO SCH (09:33)
[2017-07-21] MEDS: ASPIRIN (EC) 81 MG TAB PO SCH (09:33)
[2017-07-21] MEDS: CYANOCOBALAMIN 500 MCG TAB PO SCH (09:33)
[2017-07-21] MEDS: NICOTINE (14 MG/24 HR) PATCH TRANSDERM SCH (09:35)
[2017-07-21] MEDS: ENOXAPARIN 30 MG/0.3 ML SYG SC SCH (09:46)
--- NOTE | 2017-07-21 13:17 | CONS ---
Date/Time of Note Date/Time of Note DATE: 07/21/17 TIME: 13:16 Assessment/Plan Assessment/Plan Chief Complaint/Hosp Course 1) CAD 2) Ischemic cardiomyopathy 3) NSTEMI Problems: Additional Assessment/Plan 1) continue current meds 2) CABG Consultation Date/Type/Reason Admit Date/Time Jul 06, 2017 at 11:28 Initial Consult Date 07/10/17 Type of Consultation: card 24 HR Interval Summary Free Text/Dictation no chest pain, no sob, no palpitaitons Detailed Summary Respiratory: no complaints Cardiovascular: no complaints Gastrointestinal: no complaints Musculoskeletal: no complaints Skin: no complaints Neurologic: no complaints Endocrine: no complaints Exam/Review of Systems Vital Signs Vitals Vital Signs Date Time Temp Pulse Resp B/P Pulse Ox O2 Delivery O2 Flow Rate FiO2 07/21/17 12:38 78 07/21/17 11:40 98.0 18 102/63 98 07/21/17 08:34 21 07/20/17 06:43 Room Air Intake and Output 07/20/17 07/20/17 07/21/17 15:00 23:00 07:00 Intake Total 980 ml 1680 ml Output Total 700 ml 475 ml Balance 280 ml 1205 ml Exam Constitutional: alert, oriented Head: atraumatic, normocephalic Neck: supple Respiratory: clear to auscultation Cardiovascular: regular rate and rhythm Gastrointestinal: soft Musculoskeletal: nl extremities to inspection Extremities: normal pulses Medications Medications Current Medications Aspirin (Halfprin) 81 mg DAILY PO Last administered on 07/21/17 09:33; Admin Dose 81 MG; Start 07/07/17 at 09:00 Hydralazine HCl (Apresoline) 20 mg Q6H PRN IV prn SBP > 160; Start 07/06/17 at 15:00 Losartan Potassium (Cozaar) 25 mg DAILY PO Last administered on 07/20/17 08: 55; Admin Dose 25 MG; Start 07/06/17 at 15:00 Ondansetron HCl (Zofran Inj) 4 mg Q6H PRN IV NAUSEA AND/OR VOMITING; Start at 16:30 Morphine Sulfate (morphine) 2 mg Q4H PRN IV SEVERE PAIN LEVEL 7-10; Start 07/06 at 16:30 Labetalol HCl (Labetalol) 10 mg Q2 PRN IV SBP>160; Start 07/06/17 at 16:30 Nicotine (Nicoderm 14 Mg/ 24hr) 1 patch DAILY TRANSDERM Last administered on 09:35; Admin Dose 1 PATCH; Start 07/06/17 at 17:00 Cyanocobalamin (Vitamin B12) 500 mcg DAILY PO Last administered on 07/21/17 09:33; Admin Dose 500 MCG; Start 07/10/17 at 09:00 Atorvastatin Calcium (Lipitor) 80 mg DAILY PO Last administered on 07/21/17 09:33; Admin Dose 80 MG; Start 07/10/17 at 09:00 Carvedilol (Coreg) 3.125 mg BID GTB Last administered on 07/21/17 09:34; Admin Dose 3.125 MG; Start 07/10/17 at 09:00 Pantoprazole (Protonix Tab) 40 mg DAILY@06 PO Last administered on 07/21/17 05:07; Admin Dose 40 MG; Start 07/12/17 at 06:00 Furosemide (Lasix) 20 mg DAILY PO Last administered on 07/20/17 08:54; Admin Dose 20 MG; Start 07/13/17 at 09:00 Enoxaparin Sodium (Lovenox) 30 mg QAM SC Last administered on 07/21/17 09:46 ; Admin Dose 30 MG; Start 07/13/17 at 09:00 SHAI PELAEZ MD Jul 21, 2017 13:17
--- NOTE | 2017-07-21 14:06 | PN ---
Date/Time of Note Date/Time of Note DATE: 07/21/17 TIME: 14:06 Assessment/Plan VTE Prophylaxis VTE Prophylaxis Intervention: LMWH Lines/Catheters IV Catheter Type (from Nrs): Saline Lock Urinary Cath still in place: No Assessment/Plan Chief Complaint/Hosp Course 1. NSTEMI, 3x vessel CAD - CABG pending at [facility], insurance pending - s/p therapeutic lovenox - Aspirin - Statin 2. Acute systolic CHF exacerbation: EF at 15%-stable - Euvolemic, continue Lasix, Coreg and losartan 3. 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 B12 defiiecny anemia; - supplement B12 5. Etoh use d/o: - Cessation advised Prophylaxis: Lovenox Problems: Subjective 24 Hr Interval Summary Constitutional: no complaints Exam/Review of Systems Vital Signs Vitals Vital Signs Date Time Temp Pulse Resp B/P Pulse Ox O2 Delivery O2 Flow Rate FiO2 07/21/17 13:26 68 18 97 21 07/21/17 11:40 98.0 102/63 07/20/17 06:43 Room Air Intake and Output 07/20/17 07/20/17 07/21/17 15:00 23:00 07:00 Intake Total 980 ml 1680 ml Output Total 700 ml 475 ml Balance 280 ml 1205 ml Exam Constitutional: alert, oriented Respiratory: clear to auscultation Cardiovascular: regular rate and rhythm Gastrointestinal: soft, No distended Musculoskeletal: nl extremities to inspection Medications Medications Current Medications Aspirin (Halfprin) 81 mg DAILY PO Last administered on 07/21/17 09:33; Admin Dose 81 MG; Start 07/07/17 at 09:00 Hydralazine HCl (Apresoline) 20 mg Q6H PRN IV prn SBP > 160; Start 07/06/17 at 15:00 Losartan Potassium (Cozaar) 25 mg DAILY PO Last administered on 07/20/17 08: 55; Admin Dose 25 MG; Start 07/06/17 at 15:00 Ondansetron HCl (Zofran Inj) 4 mg Q6H PRN IV NAUSEA AND/OR VOMITING; Start at 16:30 Morphine Sulfate (morphine) 2 mg Q4H PRN IV SEVERE PAIN LEVEL 7-10; Start 07/06 at 16:30 Labetalol HCl (Labetalol) 10 mg Q2 PRN IV SBP>160; Start 07/06/17 at 16:30 Nicotine (Nicoderm 14 Mg/ 24hr) 1 patch DAILY TRANSDERM Last administered on 09:35; Admin Dose 1 PATCH; Start 07/06/17 at 17:00 Cyanocobalamin (Vitamin B12) 500 mcg DAILY PO Last administered on 07/21/17 09:33; Admin Dose 500 MCG; Start 07/10/17 at 09:00 Atorvastatin Calcium (Lipitor) 80 mg DAILY PO Last administered on 07/21/17 09:33; Admin Dose 80 MG; Start 07/10/17 at 09:00 Carvedilol (Coreg) 3.125 mg BID GTB Last administered on 07/21/17 09:34; Admin Dose 3.125 MG; Start 07/10/17 at 09:00 Pantoprazole (Protonix Tab) 40 mg DAILY@06 PO Last administered on 07/21/17 05:07; Admin Dose 40 MG; Start 07/12/17 at 06:00 Furosemide (Lasix) 20 mg DAILY PO Last administered on 07/20/17 08:54; Admin Dose 20 MG; Start 07/13/17 at 09:00 Enoxaparin Sodium (Lovenox) 30 mg QAM SC Last administered on 07/21/17 09:46 ; Admin Dose 30 MG; Start 07/13/17 at 09:00 LAVELLE YOST Jul 21, 2017 14:06
[2017-07-22] VITALS (11 sets, daily range): BP systolic 94–105; BP diastolic 61–72; PULSE 59–78; RESP 16–18
[2017-07-22] MEDS: PANTOPRAZOLE (EC) 40 MG TAB PO SCH (05:16)
[2017-07-22] MEDS: CYANOCOBALAMIN 500 MCG TAB PO SCH (08:25)
[2017-07-22] MEDS: ASPIRIN (EC) 81 MG TAB PO SCH (08:25)
[2017-07-22] MEDS: ATORVASTATIN 80 MG TAB PO SCH (08:25)
[2017-07-22] MEDS: FUROSEMIDE 20 MG TAB PO SCH (08:25)
[2017-07-22] MEDS: NICOTINE (14 MG/24 HR) PATCH TRANSDERM SCH (08:26)
[2017-07-22] MEDS: LOSARTAN 25 MG TAB PO SCH ×2 (08:26→11:55)
[2017-07-22] MEDS: ENOXAPARIN 30 MG/0.3 ML SYG SC SCH (08:35)
[2017-07-22] MEDS: ALBUTEROL/IPRATROPIUM (NEB) 3 ML AMP HHN SCH ×3 (08:39→20:07)
--- NOTE | 2017-07-22 18:36 | PN ---
Date/Time of Note Date/Time of Note DATE: 07/22/17 TIME: 18:35 Assessment/Plan VTE Prophylaxis VTE Prophylaxis Intervention: LMWH Lines/Catheters IV Catheter Type (from Nrs): Saline Lock Urinary Cath still in place: No Assessment/Plan Chief Complaint/Hosp Course 1. NSTEMI, 3x vessel CAD - CABG pending at [facility], insurance pending - s/p therapeutic lovenox - Aspirin - Statin 2. Acute systolic CHF exacerbation: EF at 15%-stable - Euvolemic, continue Lasix, Coreg and losartan 3. 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 B12 defiiecny anemia; - supplement B12 5. Etoh use d/o: - Cessation advised Prophylaxis: Lovenox Problems: Subjective 24 Hr Interval Summary Constitutional: no complaints Exam/Review of Systems Vital Signs Vitals Vital Signs Date Time Temp Pulse Resp B/P Pulse Ox O2 Delivery O2 Flow Rate FiO2 07/22/17 16:49 75 07/22/17 15:33 97.8 18 94/61 93 07/22/17 13:49 21 07/20/17 06:43 Room Air Intake and Output 07/21/17 07/21/17 07/22/17 15:00 23:00 07:00 Intake Total 800 ml 400 ml Output Total 200 ml 800 ml Balance -200 ml 0 ml 400 ml Exam Constitutional: alert, oriented Respiratory: clear to auscultation Cardiovascular: regular rate and rhythm Gastrointestinal: soft, No distended Musculoskeletal: nl extremities to inspection Medications Medications Current Medications Aspirin (Halfprin) 81 mg DAILY PO Last administered on 07/22/17 08:25; Admin Dose 81 MG; Start 07/07/17 at 09:00 Hydralazine HCl (Apresoline) 20 mg Q6H PRN IV prn SBP > 160; Start 07/06/17 at 15:00 Losartan Potassium (Cozaar) 25 mg DAILY PO Last administered on 07/22/17 11: 55; Admin Dose 25 MG; Start 07/06/17 at 15:00 Ondansetron HCl (Zofran Inj) 4 mg Q6H PRN IV NAUSEA AND/OR VOMITING; Start at 16:30 Morphine Sulfate (morphine) 2 mg Q4H PRN IV SEVERE PAIN LEVEL 7-10; Start 07/06 at 16:30 Labetalol HCl (Labetalol) 10 mg Q2 PRN IV SBP>160; Start 07/06/17 at 16:30 Nicotine (Nicoderm 14 Mg/ 24hr) 1 patch DAILY TRANSDERM Last administered on 08:26; Admin Dose 1 PATCH; Start 07/06/17 at 17:00 Cyanocobalamin (Vitamin B12) 500 mcg DAILY PO Last administered on 07/22/17 08:25; Admin Dose 500 MCG; Start 07/10/17 at 09:00 Atorvastatin Calcium (Lipitor) 80 mg DAILY PO Last administered on 07/22/17 08:25; Admin Dose 80 MG; Start 07/10/17 at 09:00 Carvedilol (Coreg) 3.125 mg BID GTB Last administered on 07/22/17 08:25; Admin Dose 3.125 MG; Start 07/10/17 at 09:00 Pantoprazole (Protonix Tab) 40 mg DAILY@06 PO Last administered on 07/22/17 05:16; Admin Dose 40 MG; Start 07/12/17 at 06:00 Furosemide (Lasix) 20 mg DAILY PO Last administered on 07/22/17 08:25; Admin Dose 20 MG; Start 07/13/17 at 09:00 Enoxaparin Sodium (Lovenox) 30 mg QAM SC Last administered on 07/22/17 08:35 ; Admin Dose 30 MG; Start 07/13/17 at 09:00 LAVELLE YOST Jul 22, 2017 18:36
[2017-07-23] VITALS (13 sets, daily range): BP systolic 93–146; BP diastolic 55–70; PULSE 56–80; RESP 16–20
[2017-07-23] MEDS: PANTOPRAZOLE (EC) 40 MG TAB PO SCH (05:17)
[2017-07-23] MEDS: FUROSEMIDE 20 MG TAB PO SCH (07:58)
[2017-07-23] MEDS: ASPIRIN (EC) 81 MG TAB PO SCH (07:59)
[2017-07-23] MEDS: NICOTINE (14 MG/24 HR) PATCH TRANSDERM SCH (07:59)
[2017-07-23] MEDS: CYANOCOBALAMIN 500 MCG TAB PO SCH (07:59)
[2017-07-23] MEDS: ATORVASTATIN 80 MG TAB PO SCH (07:59)
[2017-07-23] MEDS: LOSARTAN 25 MG TAB PO SCH (08:00)
[2017-07-23] MEDS: ENOXAPARIN 30 MG/0.3 ML SYG SC SCH (08:07)
[2017-07-23] MEDS: ALBUTEROL/IPRATROPIUM (NEB) 3 ML AMP HHN SCH ×3 (09:20→21:14)
--- NOTE | 2017-07-23 14:34 | PN ---
Date/Time of Note Date/Time of Note DATE: 07/23/17 TIME: 14:33 Assessment/Plan VTE Prophylaxis VTE Prophylaxis Intervention: LMWH Lines/Catheters IV Catheter Type (from Nrs): Peripheral IV Urinary Cath still in place: No Assessment/Plan Chief Complaint/Hosp Course 67 yo male with COPD, tobacco use d/o, etoh use d/o, presenting wtih NSTEMI, found to have acute systolic CHF exacerbation EF 15% and 3x vessel disease, pending CABG. Needs to transferred to tertiary center, difficulty given no insurance Acute systolic CHF exacerbation: - Euvolemic, maintenacne 20 PO lasix - Coreg 3, losartan 25 NSTEMI, 3x vessel CAD - CABG pending at [facility] - s/p therapeutic lovenox - Aspirin - Statin Tobacoo use d/o: - Cessation advised B12 defiiecny anemia; - supplement B12 Etoh use d/o: - Cessation advised Trasnfer pending to tertiary center for CABG LMWH ppx Problems: Subjective 24 Hr Interval Summary Free Text/Dictation No change to clinical status Waiting to transfer for CABG Exam/Review of Systems Vital Signs Vitals Vital Signs Date Time Temp Pulse Resp B/P Pulse Ox O2 Delivery O2 Flow Rate FiO2 07/23/17 12:08 80 07/23/17 11:00 97.5 20 107/61 96 07/23/17 09:24 21 07/20/17 06:43 Room Air Intake and Output 07/22/17 07/22/17 07/23/17 14:59 22:59 06:59 Intake Total 940 ml 60 ml Output Total 300 ml 450 ml Balance 640 ml -390 ml Medications Medications Current Medications Aspirin (Halfprin) 81 mg DAILY PO Last administered on 07/23/17 07:59; Admin Dose 81 MG; Start 07/07/17 at 09:00 Hydralazine HCl (Apresoline) 20 mg Q6H PRN IV prn SBP > 160; Start 07/06/17 at 15:00 Losartan Potassium (Cozaar) 25 mg DAILY PO Last administered on 07/22/17 11: 55; Admin Dose 25 MG; Start 07/06/17 at 15:00 Ondansetron HCl (Zofran Inj) 4 mg Q6H PRN IV NAUSEA AND/OR VOMITING; Start at 16:30 Morphine Sulfate (morphine) 2 mg Q4H PRN IV SEVERE PAIN LEVEL 7-10; Start 07/06 at 16:30 Labetalol HCl (Labetalol) 10 mg Q2 PRN IV SBP>160; Start 07/06/17 at 16:30 Nicotine (Nicoderm 14 Mg/ 24hr) 1 patch DAILY TRANSDERM Last administered on 07:59; Admin Dose 1 PATCH; Start 07/06/17 at 17:00 Cyanocobalamin (Vitamin B12) 500 mcg DAILY PO Last administered on 07/23/17 07:59; Admin Dose 500 MCG; Start 07/10/17 at 09:00 Atorvastatin Calcium (Lipitor) 80 mg DAILY PO Last administered on 07/23/17 07:59; Admin Dose 80 MG; Start 07/10/17 at 09:00 Carvedilol (Coreg) 3.125 mg BID GTB Last administered on 07/23/17 07:59; Admin Dose 3.125 MG; Start 07/10/17 at 09:00 Pantoprazole (Protonix Tab) 40 mg DAILY@06 PO Last administered on 07/23/17 05:17; Admin Dose 40 MG; Start 07/12/17 at 06:00 Furosemide (Lasix) 20 mg DAILY PO Last administered on 07/23/17 07:58; Admin Dose 20 MG; Start 07/13/17 at 09:00 Enoxaparin Sodium (Lovenox) 30 mg QAM SC Last administered on 07/23/17 08:07 ; Admin Dose 30 MG; Start 07/13/17 at 09:00 ROSEY MOSQUERA MD Jul 23, 2017 14:34
--- NOTE | 2017-07-23 16:45 | CONS ---
Date/Time of Note Date/Time of Note DATE: 07/23/17 TIME: 16:43 Assessment/Plan Assessment/Plan Additional Assessment/Plan Non-ST elevation [place] Triple-vessel coronary artery disease Ischemic cardiomyopathy with ejection fraction 15% -Continue aspirin, statin, beta-aroldo and ARB. Awaiting transfer to tertiary center Consultation Date/Type/Reason Admit Date/Time Jul 06, 2017 at 11:28 Initial Consult Date 07/06/17 Type of Consultation: cv 24 HR Interval Summary Free Text/Dictation Denies chest pain currently, palpitations or shortness of breath Exam/Review of Systems Vital Signs Vitals Vital Signs Date Time Temp Pulse Resp B/P Pulse Ox O2 Delivery O2 Flow Rate FiO2 07/23/17 16:16 67 07/23/17 15:06 98.0 20 115/68 97 07/23/17 14:52 21 07/20/17 06:43 Room Air Intake and Output 07/22/17 07/22/17 07/23/17 15:00 23:00 07:00 Intake Total 940 ml 60 ml Output Total 300 ml 450 ml Balance 640 ml -390 ml Exam No apparent distress Constitutional: alert, oriented Head: normocephalic Respiratory: other (Coarse breath sounds bilaterally, no wheezing) Cardiovascular: other (S1-S2 heard), regular rate and rhythm Gastrointestinal: bowel sounds, non-tender, soft Extremities: edema (Trace) Medications Medications Current Medications Aspirin (Halfprin) 81 mg DAILY PO Last administered on 07/23/17 07:59; Admin Dose 81 MG; Start 07/07/17 at 09:00 Hydralazine HCl (Apresoline) 20 mg Q6H PRN IV prn SBP > 160; Start 07/06/17 at 15:00 Losartan Potassium (Cozaar) 25 mg DAILY PO Last administered on 07/22/17 11: 55; Admin Dose 25 MG; Start 07/06/17 at 15:00 Ondansetron HCl (Zofran Inj) 4 mg Q6H PRN IV NAUSEA AND/OR VOMITING; Start at 16:30 Morphine Sulfate (morphine) 2 mg Q4H PRN IV SEVERE PAIN LEVEL 7-10; Start 07/06 at 16:30 Labetalol HCl (Labetalol) 10 mg Q2 PRN IV SBP>160; Start 07/06/17 at 16:30 Nicotine (Nicoderm 14 Mg/ 24hr) 1 patch DAILY TRANSDERM Last administered on 07:59; Admin Dose 1 PATCH; Start 07/06/17 at 17:00 Cyanocobalamin (Vitamin B12) 500 mcg DAILY PO Last administered on 07/23/17 07:59; Admin Dose 500 MCG; Start 07/10/17 at 09:00 Atorvastatin Calcium (Lipitor) 80 mg DAILY PO Last administered on 07/23/17 07:59; Admin Dose 80 MG; Start 07/10/17 at 09:00 Carvedilol (Coreg) 3.125 mg BID GTB Last administered on 07/23/17 07:59; Admin Dose 3.125 MG; Start 07/10/17 at 09:00 Pantoprazole (Protonix Tab) 40 mg DAILY@06 PO Last administered on 07/23/17 05:17; Admin Dose 40 MG; Start 07/12/17 at 06:00 Furosemide (Lasix) 20 mg DAILY PO Last administered on 07/23/17 07:58; Admin Dose 20 MG; Start 07/13/17 at 09:00 Enoxaparin Sodium (Lovenox) 30 mg QAM SC Last administered on 07/23/17 08:07 ; Admin Dose 30 MG; Start 07/13/17 at 09:00 Du Mckeon DO Jul 23, 2017 16:44
[2017-07-24] VITALS (12 sets, daily range): BP systolic 103–121; BP diastolic 61–80; PULSE 60–80; RESP 15–17
[2017-07-24] MEDS: PANTOPRAZOLE (EC) 40 MG TAB PO SCH (06:48)
[2017-07-24] MEDS: ALBUTEROL/IPRATROPIUM (NEB) 3 ML AMP HHN SCH ×3 (08:35→20:07)
[2017-07-24] MEDS: CYANOCOBALAMIN 500 MCG TAB PO SCH (08:59)
[2017-07-24] MEDS: ASPIRIN (EC) 81 MG TAB PO SCH (08:59)
[2017-07-24] MEDS: LOSARTAN 25 MG TAB PO SCH (09:00)
[2017-07-24] MEDS: FUROSEMIDE 20 MG TAB PO SCH (09:00)
[2017-07-24] MEDS: ENOXAPARIN 30 MG/0.3 ML SYG SC SCH (09:01)
[2017-07-24] MEDS: NICOTINE (14 MG/24 HR) PATCH TRANSDERM SCH (09:01)
--- NOTE | 2017-07-24 16:32 | CONS ---
Date/Time of Note Date/Time of Note DATE: 07/24/17 TIME: 16:30 Assessment/Plan Assessment/Plan Additional Assessment/Plan Non-ST elevation [place] Triple-vessel coronary artery disease Ischemic cardiomyopathy with ejection fraction 15% -Patient with recurrent chest discomfort and shortness of breath yesterday. Patient with severe triple-vessel coronary artery disease who presented with non -ST elevation MA as well as severe ischemic cardio myopathy. At the current time, patient needs inpatient surgical coronary revascularization and is not safe for discharge from a cardiac point of view. Given recurrent symptoms of chest discomfort, would restart anticoagulation,continue aspirin, statin, beta- aroldo and ARB. Consultation Date/Type/Reason Admit Date/Time Jul 06, 2017 at 11:28 Initial Consult Date 07/06/17 Type of Consultation: cv 24 HR Interval Summary Free Text/Dictation Patient with intermittent episodes of chest discomfort and shortness of breath yesterday. Currently slightly better. Exam/Review of Systems Vital Signs Vitals Vital Signs Date Time Temp Pulse Resp B/P Pulse Ox O2 Delivery O2 Flow Rate FiO2 07/24/17 15:29 98.4 68 17 121/80 98 07/24/17 13:52 21 Intake and Output 07/23/17 07/23/17 07/24/17 15:00 23:00 07:00 Intake Total 980 ml 250 ml Output Total 1100 ml Balance -120 ml 250 ml Exam No apparent distress Constitutional: alert, oriented Head: normocephalic Respiratory: other (Coarse breath sounds bilaterally, no wheezing) Cardiovascular: other (S1-S2 heard), regular rate and rhythm Gastrointestinal: bowel sounds, non-tender, soft Extremities: edema (Trace) Medications Medications Current Medications Aspirin (Halfprin) 81 mg DAILY PO Last administered on 07/24/17 08:59; Admin Dose 81 MG; Start 07/07/17 at 09:00 Hydralazine HCl (Apresoline) 20 mg Q6H PRN IV prn SBP > 160; Start 07/06/17 at 15:00 Losartan Potassium (Cozaar) 25 mg DAILY PO Last administered on 07/22/17 11: 55; Admin Dose 25 MG; Start 07/06/17 at 15:00 Ondansetron HCl (Zofran Inj) 4 mg Q6H PRN IV NAUSEA AND/OR VOMITING; Start at 16:30 Morphine Sulfate (morphine) 2 mg Q4H PRN IV SEVERE PAIN LEVEL 7-10; Start 07/06 at 16:30 Labetalol HCl (Labetalol) 10 mg Q2 PRN IV SBP>160; Start 07/06/17 at 16:30 Nicotine (Nicoderm 14 Mg/ 24hr) 1 patch DAILY TRANSDERM Last administered on 09:01; Admin Dose 1 PATCH; Start 07/06/17 at 17:00 Cyanocobalamin (Vitamin B12) 500 mcg DAILY PO Last administered on 07/24/17 08:59; Admin Dose 500 MCG; Start 07/10/17 at 09:00 Carvedilol (Coreg) 3.125 mg BID GTB Last administered on 07/24/17 09:00; Admin Dose 3.125 MG; Start 07/10/17 at 09:00 Pantoprazole (Protonix Tab) 40 mg DAILY@06 PO Last administered on 07/24/17 06:48; Admin Dose 40 MG; Start 07/12/17 at 06:00 Furosemide (Lasix) 20 mg DAILY PO Last administered on 07/24/17 09:00; Admin Dose 20 MG; Start 07/13/17 at 09:00 Enoxaparin Sodium (Lovenox) 30 mg QAM SC Last administered on 07/24/17 09:01 ; Admin Dose 30 MG; Start 07/13/17 at 09:00 Atorvastatin Calcium (Lipitor) 80 mg HS PO ; Start 07/24/17 at 21:00 Du Mckeon DO Jul 24, 2017 16:32
--- NOTE | 2017-07-24 18:27 | PN ---
Date/Time of Note Date/Time of Note DATE: 07/24/17 TIME: 18:24 Assessment/Plan VTE Prophylaxis VTE Prophylaxis Intervention: LMWH Lines/Catheters IV Catheter Type (from Nrs): Peripheral IV Urinary Cath still in place: No Assessment/Plan Chief Complaint/Hosp Course 67 yo male with COPD, tobacco use d/o, etoh use d/o, presenting wtih NSTEMI, found to have acute systolic CHF exacerbation EF 15% and 3x vessel disease, pending CABG. Needs to transferred to tertiary center, difficulty given no insurance Acute systolic CHF exacerbation: - Euvolemic, maintenacne 20 PO lasix - Coreg 3, losartan 25 NSTEMI, 3x vessel CAD - CABG pending at [facility] - Continue therapeutic lovenox - Aspirin - Statin - Patient is not stable for discharge. Needs revascularization prior to dc Tobacoo use d/o: - Cessation advised B12 defiiecny anemia; - supplement B12 Etoh use d/o: - Cessation advised Trasnfer pending to [facility] for CABG LMWH ppx Problems: Subjective 24 Hr Interval Summary Free Text/Dictation Awiating transfer to tertiary center Restarted on lovenox therapuetic dose Exam/Review of Systems Vital Signs Vitals Vital Signs Date Time Temp Pulse Resp B/P Pulse Ox O2 Delivery O2 Flow Rate FiO2 07/24/17 16:32 70 07/24/17 15:29 98.4 17 121/80 98 07/24/17 13:52 21 Intake and Output 07/23/17 07/23/17 07/24/17 15:00 23:00 07:00 Intake Total 980 ml 250 ml Output Total 1100 ml Balance -120 ml 250 ml Exam Constitutional: alert, oriented, well developed Psych: nl mood/affect, no complaints Head: atraumatic, normocephalic Eyes: EOMI, PERRL, nl conjunctiva, nl lids, nl sclera ENMT: nl external ears & nose, nl lips & teeth, nl nasal mucosa & septum Neck: non-tender, supple Respiratory: clear to auscultation, normal air movement Cardiovascular: nl pulses, regular rate and rhythm Gastrointestinal: nl liver, spleen, non-tender, soft Musculoskeletal: nl extremities to inspection, nl gait and stance Extremities: normal pulses Neurological: MANAGER SUPPORT II-XII intact, nl mental status, nl speech, nl strength Skin: nl turgor, No rash or lesions Lymph: nl lymph nodes Medications Medications Current Medications Aspirin (Halfprin) 81 mg DAILY PO Last administered on 07/24/17 08:59; Admin Dose 81 MG; Start 07/07/17 at 09:00 Hydralazine HCl (Apresoline) 20 mg Q6H PRN IV prn SBP > 160; Start 07/06/17 at 15:00 Losartan Potassium (Cozaar) 25 mg DAILY PO Last administered on 07/22/17 11: 55; Admin Dose 25 MG; Start 07/06/17 at 15:00 Ondansetron HCl (Zofran Inj) 4 mg Q6H PRN IV NAUSEA AND/OR VOMITING; Start at 16:30 Morphine Sulfate (morphine) 2 mg Q4H PRN IV SEVERE PAIN LEVEL 7-10; Start 07/06 at 16:30 Labetalol HCl (Labetalol) 10 mg Q2 PRN IV SBP>160; Start 07/06/17 at 16:30 Nicotine (Nicoderm 14 Mg/ 24hr) 1 patch DAILY TRANSDERM Last administered on 09:01; Admin Dose 1 PATCH; Start 07/06/17 at 17:00 Cyanocobalamin (Vitamin B12) 500 mcg DAILY PO Last administered on 07/24/17 08:59; Admin Dose 500 MCG; Start 07/10/17 at 09:00 Carvedilol (Coreg) 3.125 mg BID GTB Last administered on 07/24/17 09:00; Admin Dose 3.125 MG; Start 07/10/17 at 09:00 Pantoprazole (Protonix Tab) 40 mg DAILY@06 PO Last administered on 07/24/17 06:48; Admin Dose 40 MG; Start 07/12/17 at 06:00 Furosemide (Lasix) 20 mg DAILY PO Last administered on 07/24/17 09:00; Admin Dose 20 MG; Start 07/13/17 at 09:00 Atorvastatin Calcium (Lipitor) 80 mg HS PO ; Start 07/24/17 at 21:00 Enoxaparin Sodium (Lovenox) 75 mg BID SC ; Start 07/24/17 at 21:00 ROSEY MOSQUERA MD Jul 24, 2017 18:27
[2017-07-24] MEDS: ATORVASTATIN 80 MG TAB PO SCH (20:35)
[2017-07-24] MEDS: ENOXAPARIN 80 MG/0.8 ML SYG SC SCH (20:48)
[2017-07-25] VITALS (12 sets, daily range): BP systolic 100–114; BP diastolic 52–67; PULSE 50–75; RESP 15–17
[2017-07-25] MEDS: PANTOPRAZOLE (EC) 40 MG TAB PO SCH (06:46)
[2017-07-25] MEDS: ALBUTEROL/IPRATROPIUM (NEB) 3 ML AMP HHN SCH ×3 (08:08→19:16)
[2017-07-25] MEDS: LOSARTAN 25 MG TAB PO SCH (09:00)
[2017-07-25] MEDS: FUROSEMIDE 20 MG TAB PO SCH (10:04)
[2017-07-25] MEDS: NICOTINE (14 MG/24 HR) PATCH TRANSDERM SCH (10:05)
[2017-07-25] MEDS: ASPIRIN (EC) 81 MG TAB PO SCH (10:05)
[2017-07-25] MEDS: CYANOCOBALAMIN 500 MCG TAB PO SCH (10:05)
[2017-07-25] MEDS: ENOXAPARIN 80 MG/0.8 ML SYG SC SCH ×2 (10:15→21:04)
--- NOTE | 2017-07-25 16:41 | CONS ---
Date/Time of Note Date/Time of Note DATE: 07/25/17 TIME: 16:37 Assessment/Plan Assessment/Plan Additional Assessment/Plan Non-ST elevation CT Triple-vessel coronary artery disease Ischemic cardiomyopathy with ejection fraction 15% -Patient feeling better today and anticoagulation was restarted yesterday. Was contacted by [facility] CT surgeon and did discuss patient's history and medical findings. At the current time, patient needs inpatient surgical coronary revascularization and is not safe for discharge from a cardiac point of view. Continue aspirin, statin, beta-aroldo and ARB. Consultation Date/Type/Reason Admit Date/Time Jul 06, 2017 at 11:28 Initial Consult Date 07/06/17 Type of Consultation: cv 24 HR Interval Summary Free Text/Dictation Patient feeling better today, denies chest pain at the current time or shortness of breath Exam/Review of Systems Vital Signs Vitals Vital Signs Date Time Temp Pulse Resp B/P Pulse Ox O2 Delivery O2 Flow Rate FiO2 07/25/17 15:08 98.7 69 17 114/64 96 07/25/17 14:11 21 Intake and Output 07/24/17 07/24/17 07/25/17 15:00 23:00 07:00 Intake Total 1000 ml Output Total 700 ml Balance 300 ml Exam No apparent distress Constitutional: alert, oriented Head: normocephalic Respiratory: other (Coarse breath sounds bilaterally, no wheezing) Cardiovascular: other (S1-S2 heard), regular rate and rhythm Gastrointestinal: bowel sounds, non-tender, soft Extremities: edema (Trace) Medications Medications Current Medications Aspirin (Halfprin) 81 mg DAILY PO Last administered on 07/25/17 10:05; Admin Dose 81 MG; Start 07/07/17 at 09:00 Hydralazine HCl (Apresoline) 20 mg Q6H PRN IV prn SBP > 160; Start 07/06/17 at 15:00 Losartan Potassium (Cozaar) 25 mg DAILY PO Last administered on 07/22/17 11: 55; Admin Dose 25 MG; Start 07/06/17 at 15:00 Ondansetron HCl (Zofran Inj) 4 mg Q6H PRN IV NAUSEA AND/OR VOMITING; Start at 16:30 Morphine Sulfate (morphine) 2 mg Q4H PRN IV SEVERE PAIN LEVEL 7-10; Start 07/06 at 16:30 Labetalol HCl (Labetalol) 10 mg Q2 PRN IV SBP>160; Start 07/06/17 at 16:30 Nicotine (Nicoderm 14 Mg/ 24hr) 1 patch DAILY TRANSDERM Last administered on 10:05; Admin Dose 1 PATCH; Start 07/06/17 at 17:00 Cyanocobalamin (Vitamin B12) 500 mcg DAILY PO Last administered on 07/25/17 10:05; Admin Dose 500 MCG; Start 07/10/17 at 09:00 Carvedilol (Coreg) 3.125 mg BID GTB Last administered on 07/25/17 10:05; Admin Dose 3.125 MG; Start 07/10/17 at 09:00 Pantoprazole (Protonix Tab) 40 mg DAILY@06 PO Last administered on 07/25/17 06:46; Admin Dose 40 MG; Start 07/12/17 at 06:00 Furosemide (Lasix) 20 mg DAILY PO Last administered on 07/25/17 10:04; Admin Dose 20 MG; Start 07/13/17 at 09:00 Atorvastatin Calcium (Lipitor) 80 mg HS PO Last administered on 07/24/17 20: 35; Admin Dose 80 MG; Start 07/24/17 at 21:00 Enoxaparin Sodium (Lovenox) 75 mg BID SC Last administered on 07/25/17 10:15 ; Admin Dose 75 MG; Start 07/24/17 at 21:00 Du Mckeon DO Jul 25, 2017 16:41
--- NOTE | 2017-07-25 16:43 | PN ---
Date/Time of Note Date/Time of Note DATE: 07/25/17 TIME: 16:41 Assessment/Plan VTE Prophylaxis VTE Prophylaxis Intervention: LMWH Lines/Catheters IV Catheter Type (from Nrsg): Peripheral IV Urinary Cath still in place: No Assessment/Plan Chief Complaint/Hosp Course 67 yo male with COPD, tobacco use d/o, etoh use d/o, presenting with NSTEMI, found to have acute systolic CHF exacerbation EF 15% and 3x vessel disease, pending CABG. Needs to be transferred to tertiary center, pending Acute systolic CHF exacerbation: - Euvolemic, maintenance 20 PO lasix - Coreg 3, losartan 25 NSTEMI, 3x vessel CAD - CABG pending at [facility] - Continue therapeutic lovenox until revascularization - Aspirin - Statin - Patient is not stable for discharge. Needs revascularization prior to dc Tobacco use d/o: - Cessation advised B12 deficiency anemia; - supplement B12 Etoh use d/o: - Cessation advised Transfer pending to [facility] for CABG LMWH Problems: Subjective 24 Hr Interval Summary Free Text/Dictation No change to clinical status Awaiting transfer for CABG Exam/Review of Systems Vital Signs Vitals Vital Signs Date Time Temp Pulse Resp B/P Pulse Ox O2 Delivery O2 Flow Rate FiO2 07/25/17 15:08 98.7 69 17 114/64 96 07/25/17 14:11 21 Intake and Output 07/24/17 07/24/17 07/25/17 15:00 23:00 07:00 Intake Total 1000 ml Output Total 700 ml Balance 300 ml Medications Medications Current Medications Aspirin (Halfprin) 81 mg DAILY PO Last administered on 07/25/17 10:05; Admin Dose 81 MG; Start 07/07/17 at 09:00 Hydralazine HCl (Apresoline) 20 mg Q6H PRN IV prn SBP > 160; Start 07/06/17 at 15:00 Losartan Potassium (Cozaar) 25 mg DAILY PO Last administered on 07/22/17 11: 55; Admin Dose 25 MG; Start 07/06/17 at 15:00 Ondansetron HCl (Zofran Inj) 4 mg Q6H PRN IV NAUSEA AND/OR VOMITING; Start at 16:30 Morphine Sulfate (morphine) 2 mg Q4H PRN IV SEVERE PAIN LEVEL 7-10; Start 07/06 at 16:30 Labetalol HCl (Labetalol) 10 mg Q2 PRN IV SBP>160; Start 07/06/17 at 16:30 Nicotine (Nicoderm 14 Mg/ 24hr) 1 patch DAILY TRANSDERM Last administered on 10:05; Admin Dose 1 PATCH; Start 07/06/17 at 17:00 Cyanocobalamin (Vitamin B12) 500 mcg DAILY PO Last administered on 07/25/17 10:05; Admin Dose 500 MCG; Start 07/10/17 at 09:00 Carvedilol (Coreg) 3.125 mg BID GTB Last administered on 07/25/17 10:05; Admin Dose 3.125 MG; Start 07/10/17 at 09:00 Pantoprazole (Protonix Tab) 40 mg DAILY@06 PO Last administered on 07/25/17 06:46; Admin Dose 40 MG; Start 07/12/17 at 06:00 Furosemide (Lasix) 20 mg DAILY PO Last administered on 07/25/17 10:04; Admin Dose 20 MG; Start 07/13/17 at 09:00 Atorvastatin Calcium (Lipitor) 80 mg HS PO Last administered on 07/24/17 20: 35; Admin Dose 80 MG; Start 07/24/17 at 21:00 Enoxaparin Sodium (Lovenox) 75 mg BID SC Last administered on 07/25/17 10:15 ; Admin Dose 75 MG; Start 07/24/17 at 21:00 ROSEY MOSQUERA MD Jul 25, 2017 16:42
[2017-07-25] MEDS: ATORVASTATIN 80 MG TAB PO SCH (20:59)
[2017-07-26] VITALS (11 sets, daily range): BP systolic 102–112; BP diastolic 55–87; PULSE 56–72; RESP 19–23
[2017-07-26] MEDS: PANTOPRAZOLE (EC) 40 MG TAB PO SCH (06:19)
[2017-07-26 06:34] LABS: BASOPHIL # 0.1 10^3/ul (0.0-0.1); BASOPHILS % 0.9 % (0.0-2.0); EOSINOPHILS # 0.3 10^3/ul (0.0-0.5); HEMATOCRIT 44.5 % (42.0-52.0); HEMOGLOBIN 14.7 g/dl (14.0-18.0); LYMPHOCYTES # 1.9 10^3/ul (0.8-2.9); LYMPHOCYTES % 28.9 % (15.0-51.0); MEAN CORPUSCULAR HEMOGLOBIN 34.9 pg (29.0-33.0); MEAN CORPUSCULAR VOLUME 105.7 fl (82.0-101.0); MEAN PLATELET VOLUME 10.7 fl (7.4-10.4); MONOCYTE # 0.7 10^3/ul (0.3-0.9); MONOCYTES % 10.4 % (0.0-11.0); NEUTROPHIL # 3.5 10^3/ul (1.6-7.5); NEUTROPHILS % 54.5 % (39.0-77.0); PLATELET COUNT 253 10^3/UL (140-415); RED BLOOD COUNT 4.21 10^6/ul (4.70-6.10); RED CELL DISTRIBUTION WIDTH 12.2 % (11.5-14.5); WHITE BLOOD COUNT 6.4 10^3/ul (4.8-10.8)
[2017-07-26 07:11] LABS: CALCIUM 9.3 mg/dl (8.4-10.2); CREATININE 0.93 mg/dl (0.61-1.24); POTASSIUM 5.3 mmol/L (3.5-5.1)
[2017-07-26] MEDS: ALBUTEROL/IPRATROPIUM (NEB) 3 ML AMP HHN SCH ×3 (07:38→20:46)
[2017-07-26] MEDS: CYANOCOBALAMIN 500 MCG TAB PO SCH (09:24)
[2017-07-26] MEDS: FUROSEMIDE 20 MG TAB PO SCH (09:24)
[2017-07-26] MEDS: ASPIRIN (EC) 81 MG TAB PO SCH (09:25)
[2017-07-26] MEDS: LOSARTAN 25 MG TAB PO SCH (09:25)
[2017-07-26] MEDS: ENOXAPARIN 80 MG/0.8 ML SYG SC SCH ×2 (09:38→21:00)
[2017-07-26] MEDS: NICOTINE (14 MG/24 HR) PATCH TRANSDERM SCH (10:27)
--- NOTE | 2017-07-26 11:43 | CONS ---
Date/Time of Note Date/Time of Note DATE: 07/26/17 TIME: 11:41 Assessment/Plan Assessment/Plan Additional Assessment/Plan Non-ST elevation [place] Triple-vessel coronary artery disease Ischemic cardiomyopathy with ejection fraction 15% -Given mildly elevated potassium, would hold ARB at the current time. Supplement magnesium to maintain above 2.0. Was contacted by [facility] CT surgeon and did discuss patient's history and medical findings yesterday. At the current time, patient needs inpatient surgical coronary revascularization and is not safe for discharge from a cardiac point of view. Continue aspirin, statin, beta-aroldo. Consultation Date/Type/Reason Admit Date/Time Jul 06, 2017 at 11:28 Initial Consult Date 07/06/17 Type of Consultation: cv 24 HR Interval Summary Free Text/Dictation Brief episode of chest pain this morning which has resolved. Symptoms were more burning-like after eating. Denies shortness of breath Exam/Review of Systems Vital Signs Vitals Vital Signs Date Time Temp Pulse Resp B/P Pulse Ox O2 Delivery O2 Flow Rate FiO2 07/26/17 11:11 97.8 76 21 107/66 96 07/26/17 07:50 21 Intake and Output 07/25/17 07/25/17 07/26/17 15:00 23:00 07:00 Intake Total 200 ml Balance 200 ml Exam No apparent distress Constitutional: alert, oriented Head: normocephalic Respiratory: other (Coarse breath sounds bilaterally, no wheezing) Cardiovascular: other (S1-S2 heard), regular rate and rhythm Gastrointestinal: bowel sounds, non-tender, soft Extremities: other (No significant edema) Results Result Diagram: 07/26/17 0604 07/26/17 0604 Results 24 hrs Laboratory Tests Test 07/26/17 06:04 White Blood Count 6.4 Red Blood Count 4.21 L Hemoglobin 14.7 Hematocrit 44.5 Mean Corpuscular Volume 105.7 H Mean Corpuscular Hemoglobin 34.9 H Mean Corpuscular Hemoglobin Concent 33.0 Red Cell Distribution Width 12.2 Platelet Count 253 Mean Platelet Volume 10.7 H Neutrophils % 54.5 Lymphocytes % 28.9 Monocytes % 10.4 Eosinophils % 5.0 Basophils % 0.9 Nucleated Red Blood Cells % 0.0 Neutrophils # 3.5 Lymphocytes # 1.9 Monocytes # 0.7 Eosinophils # 0.3 Basophils # 0.1 Nucleated Red Blood Cells # 0.0 Sodium Level 139 Potassium Level 5.3 H Chloride Level 101 Carbon Dioxide Level 30 Anion Gap 13 Blood Urea Nitrogen 13 Creatinine 0.93 Glucose Level 96 Calcium Level 9.3 Magnesium Level 1.7 Medications Medications Current Medications Aspirin (Halfprin) 81 mg DAILY PO Last administered on 07/26/17 09:25; Admin Dose 81 MG; Start 07/07/17 at 09:00 Hydralazine HCl (Apresoline) 20 mg Q6H PRN IV prn SBP > 160; Start 07/06/17 at 15:00 Losartan Potassium (Cozaar) 25 mg DAILY PO Last administered on 07/26/17 09: 25; Admin Dose 25 MG; Start 07/06/17 at 15:00 Ondansetron HCl (Zofran Inj) 4 mg Q6H PRN IV NAUSEA AND/OR VOMITING; Start at 16:30 Morphine Sulfate (morphine) 2 mg Q4H PRN IV SEVERE PAIN LEVEL 7-10; Start 07/06 at 16:30 Labetalol HCl (Labetalol) 10 mg Q2 PRN IV SBP>160; Start 07/06/17 at 16:30 Nicotine (Nicoderm 14 Mg/ 24hr) 1 patch DAILY TRANSDERM Last administered on 10:27; Admin Dose 1 PATCH; Start 07/06/17 at 17:00 Cyanocobalamin (Vitamin B12) 500 mcg DAILY PO Last administered on 07/26/17 09:24; Admin Dose 500 MCG; Start 07/10/17 at 09:00 Carvedilol (Coreg) 3.125 mg BID GTB Last administered on 07/25/17 10:05; Admin Dose 3.125 MG; Start 07/10/17 at 09:00 Pantoprazole (Protonix Tab) 40 mg DAILY@06 PO Last administered on 07/26/17 06:19; Admin Dose 40 MG; Start 07/12/17 at 06:00 Furosemide (Lasix) 20 mg DAILY PO Last administered on 07/26/17 09:24; Admin Dose 20 MG; Start 07/13/17 at 09:00 Atorvastatin Calcium (Lipitor) 80 mg HS PO Last administered on 07/25/17 20: 59; Admin Dose 80 MG; Start 07/24/17 at 21:00 Enoxaparin Sodium (Lovenox) 75 mg BID SC Last administered on 07/26/17t 09:38 ; Admin Dose 75 MG; Start 07/24/17 at 21:00 Du Mckeon DO Jul 26, 2017 11:43
[2017-07-26] MEDS ORDERED: MAGNESIUM SULFATE 3 GM in SOD CHLORIDE 0.9% 100 ML IVPB ONE (13:00)
--- NOTE | 2017-07-26 16:13 | PN ---
Date/Time of Note Date/Time of Note DATE: 07/26/17 TIME: 16:12 Assessment/Plan VTE Prophylaxis VTE Prophylaxis Intervention: LMWH Lines/Catheters IV Catheter Type (from Nrs): Peripheral IV Urinary Cath still in place: No Assessment/Plan Chief Complaint/Hosp Course 67 yo male with COPD, tobacco use d/o, etoh use d/o, presenting with NSTEMI, found to have acute systolic CHF exacerbation EF 15% and 3x vessel disease, pending CABG. Needs to be transferred to tertiary center for this procedure, pending Acute systolic CHF exacerbation: - Euvolemic, maintenance 20 PO lasix - Coreg 3.125 NSTEMI, 3x vessel CAD - CABG pending at [facility] - Continue therapeutic lovenox until revascularization - Aspirin, plavix - Statin - Patient is not stable for discharge. Needs revascularization prior to dc Tobacco use d/o: - Cessation advised B12 deficiency anemia; - supplement B12 Etoh use d/o: - Cessation advised Transfer pending to [facility] for CABG LMWH Problems: Subjective 24 Hr Interval Summary Free Text/Dictation No complaints Working on transfer to [facility] for CABG Patient very pleasant and understanding Exam/Review of Systems Vital Signs Vitals Vital Signs Date Time Temp Pulse Resp B/P Pulse Ox O2 Delivery O2 Flow Rate FiO2 07/26/17 16:10 68 07/26/17 15:39 98.6 20 102/55 96 07/26/17 13:14 21 Intake and Output 07/25/17 07/25/17 07/26/17 15:00 23:00 07:00 Intake Total 200 ml Balance 200 ml Exam Constitutional: alert, oriented, well developed Psych: nl mood/affect, no complaints Head: atraumatic, normocephalic Eyes: EOMI, PERRL, nl conjunctiva, nl lids, nl sclera ENMT: nl external ears & nose, nl lips & teeth, nl nasal mucosa & septum Neck: non-tender, supple Respiratory: clear to auscultation, normal air movement Cardiovascular: nl pulses, regular rate and rhythm Gastrointestinal: nl liver, spleen, non-tender, soft Musculoskeletal: nl extremities to inspection, nl gait and stance Extremities: normal pulses Neurological: [employer] MA[employer]GER II-XII intact, nl mental status, nl speech, nl strength Skin: nl turgor, No rash or lesions Lymph: nl lymph nodes Results Result Diagram: 07/26/17 0604 07/26/17 0604 Results 24 hrs Laboratory Tests Test 07/26/17 06:04 White Blood Count 6.4 Red Blood Count 4.21 L Hemoglobin 14.7 Hematocrit 44.5 Mean Corpuscular Volume 105.7 H Mean Corpuscular Hemoglobin 34.9 H Mean Corpuscular Hemoglobin Concent 33.0 Red Cell Distribution Width 12.2 Platelet Count 253 Mean Platelet Volume 10.7 H Neutrophils % 54.5 Lymphocytes % 28.9 Monocytes % 10.4 Eosinophils % 5.0 Basophils % 0.9 Nucleated Red Blood Cells % 0.0 Neutrophils # 3.5 Lymphocytes # 1.9 Monocytes # 0.7 Eosinophils # 0.3 Basophils # 0.1 Nucleated Red Blood Cells # 0.0 Sodium Level 139 Potassium Level 5.3 H Chloride Level 101 Carbon Dioxide Level 30 Anion Gap 13 Blood Urea Nitrogen 13 Creatinine 0.93 Glucose Level 96 Calcium Level 9.3 Magnesium Level 1.7 Medications Medications Current Medications Aspirin (Halfprin) 81 mg DAILY PO Last administered on 07/26/17 09:25; Admin Dose 81 MG; Start 07/07/17 at 09:00 Hydralazine HCl (Apresoline) 20 mg Q6H PRN IV prn SBP > 160; Start 07/06/17 at 15:00 Ondansetron HCl (Zofran Inj) 4 mg Q6H PRN IV NAUSEA AND/OR VOMITING; Start at 16:30 Morphine Sulfate (morphine) 2 mg Q4H PRN IV SEVERE PAIN LEVEL 7-10; Start 07/06 at 16:30 Labetalol HCl (Labetalol) 10 mg Q2 PRN IV SBP>160; Start 07/06/17 at 16:30 Nicotine (Nicoderm 14 Mg/ 24hr) 1 patch DAILY TRANSDERM Last administered on 10:27; Admin Dose 1 PATCH; Start 07/06/17 at 17:00 Cyanocobalamin (Vitamin B12) 500 mcg DAILY PO Last administered on 07/26/17 09:24; Admin Dose 500 MCG; Start 07/10/17 at 09:00 Carvedilol (Coreg) 3.125 mg BID GTB Last administered on 07/25/17 10:05; Admin Dose 3.125 MG; Start 07/10/17 at 09:00 Pantoprazole (Protonix Tab) 40 mg DAILY@06 PO Last administered on 07/26/17 06:19; Admin Dose 40 MG; Start 07/12/17 at 06:00 Furosemide (Lasix) 20 mg DAILY PO Last administered on 07/26/17 09:24; Admin Dose 20 MG; Start 07/13/17 at 09:00 Atorvastatin Calcium (Lipitor) 80 mg HS PO Last administered on 07/25/17 20: 59; Admin Dose 80 MG; Start 07/24/17 at 21:00 Enoxaparin Sodium (Lovenox) 75 mg BID SC Last administered on 07/26/17 09:38 ; Admin Dose 75 MG; Start 07/24/17 at 21:00 ROSEY MOSQUERA MD Jul 26, 2017 16:13
[2017-07-26] MEDS: ATORVASTATIN 80 MG TAB PO SCH (20:37)
[2017-07-27] VITALS (14 sets, daily range): BP systolic 104–129; BP diastolic 56–73; PULSE 56–70; RESP 18–20
[2017-07-27 06:34] LABS: CALCIUM 9.1 mg/dl (8.4-10.2); CREATININE 0.85 mg/dl (0.61-1.24); POTASSIUM 4.5 mmol/L (3.5-5.1)
[2017-07-27] MEDS: PANTOPRAZOLE (EC) 40 MG TAB PO SCH (06:41)
[2017-07-27] MEDS: ALBUTEROL/IPRATROPIUM (NEB) 3 ML AMP HHN SCH ×3 (08:38→19:55)
[2017-07-27] MEDS: CYANOCOBALAMIN 500 MCG TAB PO SCH (09:25)
[2017-07-27] MEDS: ASPIRIN (EC) 81 MG TAB PO SCH (09:25)
[2017-07-27] MEDS: FUROSEMIDE 20 MG TAB PO SCH (09:25)
[2017-07-27] MEDS: NICOTINE (14 MG/24 HR) PATCH TRANSDERM SCH (09:26)
[2017-07-27] MEDS: ENOXAPARIN 80 MG/0.8 ML SYG SC SCH ×2 (09:37→20:35)
--- NOTE | 2017-07-27 11:42 | CONS ---
Date/Time of Note Date/Time of Note DATE: 07/27/17 TIME: 11:40 Assessment/Plan Assessment/Plan Additional Assessment/Plan Non-ST elevation [place] Triple-vessel coronary artery disease Ischemic cardiomyopathy with ejection fraction 15% -Potassium improved today, if remains stable, consider restarting DEYANIRA inhibitor or ARB at lower dose. Supplement magnesium to maintain above 2.0. Was contacted by [facility] CT surgeon and did discuss patient's history and medical findings. At the current time, patient needs inpatient surgical coronary revascularization and is not safe for discharge from a cardiac point of view. Continue aspirin, statin, beta-aroldo. Consultation Date/Type/Reason Admit Date/Time Jul 06, 2017 at 11:28 Initial Consult Date 07/06/17 Type of Consultation: cv 24 HR Interval Summary Free Text/Dictation Patient seen and examined, denies chest pain or shortness of breath, feeling better Exam/Review of Systems Vital Signs Vitals Vital Signs Date Time Temp Pulse Resp B/P Pulse Ox O2 Delivery O2 Flow Rate FiO2 07/27/17 11:12 97.5 75 18 115/56 98 07/27/17 08:38 21 Intake and Output 07/26/17 07/26/17 07/27/17 15:00 23:00 07:00 Intake Total 700 ml Balance 700 ml Exam No apparent distress Constitutional: alert, oriented Head: normocephalic Respiratory: other (Coarse breath sounds bilaterally, no wheezing) Cardiovascular: other (S1-S2 heard), regular rate and rhythm Gastrointestinal: bowel sounds, non-tender, soft Extremities: other (No edema) Results Result Diagram: 07/26/17 0604 07/27/17 0459 Results 24 hrs Laboratory Tests Test 07/27/17 04:59 Sodium Level 140 Potassium Level 4.5 Chloride Level 102 Carbon Dioxide Level 30 Anion Gap 13 Blood Urea Nitrogen 13 Creatinine 0.85 Glucose Level 97 Calcium Level 9.1 Magnesium Level 1.9 Medications Medications Current Medications Aspirin (Halfprin) 81 mg DAILY PO Last administered on 07/27/17t 09:25; Admin Dose 81 MG; Start 07/07/17 at 09:00 Hydralazine HCl (Apresoline) 20 mg Q6H PRN IV prn SBP > 160; Start 07/06/17 at 15:00 Ondansetron HCl (Zofran Inj) 4 mg Q6H PRN IV NAUSEA AND/OR VOMITING; Start at 16:30 Morphine Sulfate (morphine) 2 mg Q4H PRN IV SEVERE PAIN LEVEL 7-10; Start 07/06 at 16:30 Labetalol HCl (Labetalol) 10 mg Q2 PRN IV SBP>160; Start 07/06/17 at 16:30 Nicotine (Nicoderm 14 Mg/ 24hr) 1 patch DAILY TRANSDERM Last administered on 09:26; Admin Dose 1 PATCH; Start 07/06/17 at 17:00 Cyanocobalamin (Vitamin B12) 500 mcg DAILY PO Last administered on 07/27/17 09:25; Admin Dose 500 MCG; Start 07/10/17 at 09:00 Carvedilol (Coreg) 3.125 mg BID GTB Last administered on 07/27/17 09:25; Admin Dose 3.125 MG; Start 07/10/17 at 09:00 Pantoprazole (Protonix Tab) 40 mg DAILY@06 PO Last administered on 07/27/17 06:41; Admin Dose 40 MG; Start 07/12/17 at 06:00 Furosemide (Lasix) 20 mg DAILY PO Last administered on 07/27/17 09:25; Admin Dose 20 MG; Start 07/13/17 at 09:00 Atorvastatin Calcium (Lipitor) 80 mg HS PO Last administered on 07/26/17 20: 37; Admin Dose 80 MG; Start 07/24/17 at 21:00 Enoxaparin Sodium (Lovenox) 75 mg BID SC Last administered on 07/27/17 09:37 ; Admin Dose 75 MG; Start 07/24/17 at 21:00 Du Mckeon DO Jul 27, 2017 11:41
[2017-07-27] MEDS ORDERED: MAGNESIUM SULFATE 2 GM/50 ML 50 ML IVPB ONE (12:00)
--- NOTE | 2017-07-27 13:24 | PN ---
Date/Time of Note Date/Time of Note DATE: 07/27/17 TIME: 13:24 Assessment/Plan VTE Prophylaxis VTE Prophylaxis Intervention: LMWH Lines/Catheters IV Catheter Type (from Nrs): Peripheral IV Urinary Cath still in place: No Assessment/Plan Chief Complaint/Hosp Course 67 yo male with COPD, tobacco use d/o, etoh use d/o, presenting with NSTEMI, found to have acute systolic CHF exacerbation EF 15% and 3x vessel disease, pending CABG. Needs to be transferred to tertiary center for this procedure, pending Acute systolic CHF exacerbation: - Euvolemic, maintenance 20 PO lasix - Coreg 3.125 NSTEMI, 3x vessel CAD - CABG pending at [facility] - Continue therapeutic lovenox until revascularization - Aspirin, plavix - Statin - Patient is not stable for discharge. Needs revascularization prior to dc Tobacco use d/o: - Cessation advised B12 deficiency anemia; - supplement B12 Etoh use d/o: - Cessation advised Transfer pending to [facility] for CABG LMWH Problems: Subjective 24 Hr Interval Summary Free Text/Dictation No change to clinical status Awaiting transfer to [facility] Exam/Review of Systems Vital Signs Vitals Vital Signs Date Time Temp Pulse Resp B/P Pulse Ox O2 Delivery O2 Flow Rate FiO2 07/27/17 12:15 69 07/27/17 11:12 97.5 18 115/56 98 07/27/17 08:38 21 Intake and Output 07/26/17 07/26/17 07/27/17 15:00 23:00 07:00 Intake Total 700 ml Balance 700 ml Exam Constitutional: alert, oriented, well developed Psych: nl mood/affect, no complaints Head: atraumatic, normocephalic Eyes: EOMI, PERRL, nl conjunctiva, nl lids, nl sclera ENMT: nl external ears & nose, nl lips & teeth, nl nasal mucosa & septum Neck: non-tender, supple Respiratory: clear to auscultation, normal air movement Cardiovascular: nl pulses, regular rate and rhythm Gastrointestinal: nl liver, spleen, non-tender, soft Musculoskeletal: nl extremities to inspection, nl gait and stance Extremities: normal pulses 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, nl mental status, nl speech, nl strength Skin: nl turgor, No rash or lesions Lymph: nl lymph nodes Results Result Diagram: 07/26/17 0604 07/27/17 0459 Results 24 hrs Laboratory Tests Test 07/27/17 04:59 Sodium Level 140 Potassium Level 4.5 Chloride Level 102 Carbon Dioxide Level 30 Anion Gap 13 Blood Urea Nitrogen 13 Creatinine 0.85 Glucose Level 97 Calcium Level 9.1 Magnesium Level 1.9 Medications Medications Current Medications Aspirin (Halfprin) 81 mg DAILY PO Last administered on 07/27/17 09:25; Admin Dose 81 MG; Start 07/07/17 at 09:00 Hydralazine HCl (Apresoline) 20 mg Q6H PRN IV prn SBP > 160; Start 07/06/17 at 15:00 Ondansetron HCl (Zofran Inj) 4 mg Q6H PRN IV NAUSEA AND/OR VOMITING; Start at 16:30 Morphine Sulfate (morphine) 2 mg Q4H PRN IV SEVERE PAIN LEVEL 7-10; Start 07/06 at 16:30 Labetalol HCl (Labetalol) 10 mg Q2 PRN IV SBP>160; Start 07/06/17 at 16:30 Nicotine (Nicoderm 14 Mg/ 24hr) 1 patch DAILY TRANSDERM Last administered on 09:26; Admin Dose 1 PATCH; Start 07/06/17 at 17:00 Cyanocobalamin (Vitamin B12) 500 mcg DAILY PO Last administered on 07/27/17 09:25; Admin Dose 500 MCG; Start 07/10/17 at 09:00 Carvedilol (Coreg) 3.125 mg BID GTB Last administered on 07/27/17 09:25; Admin Dose 3.125 MG; Start 07/10/17 at 09:00 Pantoprazole (Protonix Tab) 40 mg DAILY@06 PO Last administered on 07/27/17 06:41; Admin Dose 40 MG; Start 07/12/17 at 06:00 Furosemide (Lasix) 20 mg DAILY PO Last administered on 07/27/17 09:25; Admin Dose 20 MG; Start 07/13/17 at 09:00 Atorvastatin Calcium (Lipitor) 80 mg HS PO Last administered on 07/26/17 20: 37; Admin Dose 80 MG; Start 07/24/17 at 21:00 Enoxaparin Sodium 75 mg 75 mg BID SC Last administered on 07/27/17 09:37; Admin Dose 75 MG; Start 07/24/17 at 21:00 Magnesium Sulfate (Magnesium Sulfate 2 Gm/50 ml) 50 ml @ 25 mls/hr ONCE ONCE IVPB ; Start 07/27/17 at 12:00; Stop 07/27/17 at 13:59 ROSEY MOSQUERA MD Jul 27, 2017 13:24
[2017-07-27] MEDS: ATORVASTATIN 80 MG TAB PO SCH (20:26)
[2017-07-28] VITALS (10 sets, daily range): BP systolic 98–108; BP diastolic 58–65; PULSE 55–93; RESP 16–19
[2017-07-28] MEDS: PANTOPRAZOLE (EC) 40 MG TAB PO SCH (06:54)
[2017-07-28] MEDS: ALBUTEROL/IPRATROPIUM (NEB) 3 ML AMP HHN SCH ×3 (08:35→19:43)
[2017-07-28] MEDS: CYANOCOBALAMIN 500 MCG TAB PO SCH (09:51)
[2017-07-28] MEDS: ASPIRIN (EC) 81 MG TAB PO SCH (09:51)
[2017-07-28] MEDS: FUROSEMIDE 20 MG TAB PO SCH (09:52)
[2017-07-28] MEDS: NICOTINE (14 MG/24 HR) PATCH TRANSDERM SCH (09:52)
[2017-07-28] MEDS: ENOXAPARIN 80 MG/0.8 ML SYG SC SCH ×2 (10:06→21:20)
--- NOTE | 2017-07-28 12:34 | PN ---
Date/Time of Note Date/Time of Note DATE: 07/28/17 TIME: 12:33 Assessment/Plan VTE Prophylaxis VTE Prophylaxis Intervention: SCD's Lines/Catheters IV Catheter Type (from Nrsg): [place] Urinary Cath still in place: No Assessment/Plan Assessment/Plan Non-ST elevation [place] Triple-vessel coronary artery disease Ischemic cardiomyopathy with ejection fraction 15% -Potassium improved today, if remains stable, consider restarting DEYANIRA inhibitor or ARB at lower dose. Supplement magnesium to maintain above 2.0. Was contacted by [facility] CT surgeon and did discuss patient's history and medical findings. At the current time, patient needs inpatient surgical coronary revascularization and is not safe for discharge from a cardiac point of view. Continue aspirin, statin, beta-aroldo. Subjective 24 Hr Interval Summary Free Text/Dictation the patient with no chest pain Exam/Review of Systems Vital Signs Vitals Vital Signs Date Time Temp Pulse Resp B/P Pulse Ox O2 Delivery O2 Flow Rate FiO2 07/28/17 12:10 61 07/28/17 11:34 98.0 16 98/64 97 07/27/17 19:55 21 Intake and Output 07/27/17 07/27/17 07/28/17 15:00 23:00 07:00 Intake Total 1000 ml Balance 1000 ml Results Result Diagram: 07/26/17 0604 07/27/17 0459 Medications Medications Current Medications Aspirin (Halfprin) 81 mg DAILY PO Last administered on 07/28/17 09:51; Admin Dose 81 MG; Start 07/07/17 at 09:00 Hydralazine HCl (Apresoline) 20 mg Q6H PRN IV prn SBP > 160; Start 07/06/17 at 15:00 Ondansetron HCl (Zofran Inj) 4 mg Q6H PRN IV NAUSEA AND/OR VOMITING; Start at 16:30 Morphine Sulfate (morphine) 2 mg Q4H PRN IV SEVERE PAIN LEVEL 7-10; Start 07/06 at 16:30 Labetalol HCl (Labetalol) 10 mg Q2 PRN IV SBP>160; Start 07/06/17 at 16:30 Nicotine (Nicoderm 14 Mg/ 24hr) 1 patch DAILY TRANSDERM Last administered on 09:52; Admin Dose 1 PATCH; Start 07/06/17 at 17:00 Cyanocobalamin (Vitamin B12) 500 mcg DAILY PO Last administered on 07/28/17 09:51; Admin Dose 500 MCG; Start 07/10/17 at 09:00 Carvedilol (Coreg) 3.125 mg BID GTB Last administered on 07/28/17 09:53; Admin Dose 3.125 MG; Start 07/10/17 at 09:00 Pantoprazole (Protonix Tab) 40 mg DAILY@06 PO Last administered on 07/28/17 06:54; Admin Dose 40 MG; Start 07/12/17 at 06:00 Furosemide (Lasix) 20 mg DAILY PO Last administered on 07/28/17 09:52; Admin Dose 20 MG; Start 07/13/17 at 09:00 Atorvastatin Calcium (Lipitor) 80 mg HS PO Last administered on 07/27/17 20: 26; Admin Dose 80 MG; Start 07/24/17 at 21:00 Enoxaparin Sodium (Lovenox) 75 mg BID SC Last administered on 07/28/17 10:06 ; Admin Dose 75 MG; Start 07/24/17 at 21:00 SVITLANA MUNGUIA MD Jul 28, 2017 12:34
[2017-07-28] MEDS ORDERED: ATOR80TA75 PO (14:54)
[2017-07-28] MEDS ORDERED: CARV3.1260 GTB (14:54)
[2017-07-28] MEDS ORDERED: ENOX80DI10 SC (14:54)
[2017-07-28] MEDS ORDERED: LAS20 PO (14:54)
[2017-07-28] MEDS ORDERED: CYAN500T46 PO (14:54)
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
[2017-07-28] MEDS: ATORVASTATIN 80 MG TAB PO SCH (21:17)
[2017-07-29] VITALS (11 sets, daily range): BP systolic 110–123; BP diastolic 62–72; PULSE 60–72; RESP 17–19
[2017-07-29] MEDS: PANTOPRAZOLE (EC) 40 MG TAB PO SCH (06:14)
[2017-07-29] MEDS: CYANOCOBALAMIN 500 MCG TAB PO SCH (08:01)
[2017-07-29] MEDS: FUROSEMIDE 20 MG TAB PO SCH (08:01)
[2017-07-29] MEDS: ASPIRIN (EC) 81 MG TAB PO SCH (08:01)
[2017-07-29] MEDS: NICOTINE (14 MG/24 HR) PATCH TRANSDERM SCH (08:02)
[2017-07-29] MEDS: ENOXAPARIN 80 MG/0.8 ML SYG SC SCH ×2 (08:04→20:37)
[2017-07-29] MEDS: ALBUTEROL/IPRATROPIUM (NEB) 3 ML AMP HHN SCH ×3 (09:10→19:29)
--- NOTE | 2017-07-29 15:40 | PN ---
Date/Time of Note Date/Time of Note DATE: 07/29/17 TIME: 15:40 Assessment/Plan VTE Prophylaxis VTE Prophylaxis Intervention: LMWH Lines/Catheters IV [facility]from [facility] Urinary Cath still in place: No Assessment/Plan Chief Complaint/Hosp Course 67 yo male with COPD, tobacco use d/o, etoh use d/o, presenting with NSTEMI, found to have acute systolic CHF exacerbation EF 15% and 3x vessel disease, pending CABG. The patient was admitted with an NSTEMI 07/06/17. He was HD stable and mild symptoms. Troponin was elevated 5. LHC was performed showing: "Left main is a medium to large caliber vessel with no significant disease Circumflex is a medium to large caliber vessel with proximal eccentric 90% calcified stenosis. There are large patent obtuse marginal distally LAD is a medium caliber vessel with a mid 80% stenosis and mid to distal 70% stenosis RCA is a medium caliber vessel and dominant. There is a proximal to mid 99% stenosis with right to right collaterals. The distal vessel is seen via collaterals from the left system which demonstrates a patent medium caliber PDA and PLB." TTE showed: "Conclusions 1. Mild concentric left ventricular hypertrophy. Moderate enlargement of left ventricle cavity. Severe global left ventricular systolic dysfunction. Ejection fraction is visually estimated at 15 %. Abnormal Diastolic Function. 2. Pulmonic valve not well visualized. There is trace pulmonic regurgitation. 3. Normal size with poor respiratory collapse consistent with elevated right atrial pressure. 4. Normal right ventricular size. Normal right ventricular systolic function. 5. The left atrium is normal in size. 6. The right atrium is normal in size. 7. Mild mitral leaflet calcification. Mild mitral annular calcification. Mild mitral valve regurgitation. 8. Aortic sclerosis without stenosis. Mild to moderate aortic valve regurgitation. 9. Normal appearance of the tricuspid valve. Estimated peak PA systolic pressure 47 mmHg. There is mild tricuspid regurgitation." Given the patient's low EF, no stent was placed and CABG was recommended. It took until today for him to be accepted to a tertiary center. He was maintained on therapeutic lovenox. He was also in mild CHF on admission with mild respiratory symptoms. He was given a couple days of IV lasix and has been stable on 20 PO lasix since that time He has a macrocytic anemia and was found to have B12 defiiecny. This was supplemented. He was symptom free following his first couple days of admission Plan now to transfer to [facility] for CABG Problems: Subjective 24 Hr Interval Summary Free Text/Dictation No change to clinical status. Awiating transfer to [facility] Exam/Review of Systems Vital Signs Vitals Vital Signs Date Time Temp Pulse Resp B/P Pulse Ox O2 Delivery O2 Flow Rate FiO2 07/29/17 14:14 64 18 21 07/29/17 07:59 98.3 123/69 97 Room Air Intake and Output 07/28/17 07/28/17 07/29/17 15:00 23:00 07:00 Intake Total 500 ml 400 ml Output Total 650 ml Balance -150 ml 400 ml Exam Constitutional: alert, oriented, well developed Psych: nl mood/affect, no complaints Head: atraumatic, normocephalic Eyes: EOMI, PERRL, nl conjunctiva, nl lids, nl sclera ENMT: nl external ears & nose, nl lips & teeth, nl nasal mucosa & septum Neck: non-tender, supple Respiratory: clear to auscultation, normal air movement Cardiovascular: nl pulses, regular rate and rhythm Gastrointestinal: nl liver, spleen, non-tender, soft Musculoskeletal: nl extremities to inspection, nl gait and stance Extremities: normal pulses Neurological: [employer] FIELD II-XII intact, nl mental status, nl speech, nl strength Skin: nl turgor, No rash or lesions Lymph: nl lymph nodes Results Result Diagram: 07/26/17 0604 07/27/17 0459 Medications Medications Current Medications Aspirin (Halfprin) 81 mg DAILY PO Last administered on 07/29/17t 08:01; Admin Dose 81 MG; Start 07/07/17 at 09:00 Hydralazine HCl (Apresoline) 20 mg Q6H PRN IV prn SBP > 160; Start 07/06/17 at 15:00 Ondansetron HCl (Zofran Inj) 4 mg Q6H PRN IV NAUSEA AND/OR VOMITING; Start at 16:30 Morphine Sulfate (morphine) 2 mg Q4H PRN IV SEVERE PAIN LEVEL 7-10; Start 07/06 at 16:30 Labetalol HCl (Labetalol) 10 mg Q2 PRN IV SBP>160; Start 07/06/17 at 16:30 Nicotine (Nicoderm 14 Mg/ 24hr) 1 patch DAILY TRANSDERM Last administered on 08:02; Admin Dose 1 PATCH; Start 07/06/17 at 17:00 Cyanocobalamin (Vitamin B12) 500 mcg DAILY PO Last administered on 07/29/17 08:01; Admin Dose 500 MCG; Start 07/10/17 at 09:00 Carvedilol (Coreg) 3.125 mg BID GTB Last administered on 07/29/17 08:01; Admin Dose 3.125 MG; Start 07/10/17 at 09:00 Pantoprazole (Protonix Tab) 40 mg DAILY@06 PO Last administered on 07/29/17 06:14; Admin Dose 40 MG; Start 07/12/17 at 06:00 Furosemide (Lasix) 20 mg DAILY PO Last administered on 07/29/17 08:01; Admin Dose 20 MG; Start 07/13/17 at 09:00 Atorvastatin Calcium (Lipitor) 80 mg HS PO Last administered on 07/28/17 21: 17; Admin Dose 80 MG; Start 07/24/17 at 21:00 Enoxaparin Sodium (Lovenox) 75 mg BID SC Last administered on 07/29/17 08:04 ; Admin Dose 75 MG; Start 07/24/17 at 21:00 ROSEY MOSQUERA MD Jul 29, 2017 15:40
[2017-07-29] MEDS: ATORVASTATIN 80 MG TAB PO SCH (20:35)
[2017-07-30 00:02] VITALS: PULSE 72
== END 2017-07-30 00:48 | disposition short-term general hospital (02) | DRG 280 ==
LOC: E/R 09:28 → TEL 11:28 → ICU 07-09 15:32 → TEL 07-10 18:14 → UNDODISIN 07-30 00:48
PROVIDERS: ADMIT Internal Medicine; ATTEND Internal Medicine
PROC: 5A09357 Assistance with Respiratory Ventilation, Less than 24 Consecutive Hours, Continuous Positive Airway Pressure (ICD-10-PCS; 2017-07-06)
PROC: B211YZZ Fluoroscopy of Multiple Coronary Arteries using Other Contrast (ICD-10-PCS; 2017-07-09)
PROC: 4A023N7 Measurement of Cardiac Sampling and Pressure, Left Heart, Percutaneous Approach (ICD-10-PCS; principal; 2017-07-09 10:30)
DX: I21.4 Non-ST elevation (NSTEMI) myocardial infarction (principal); J96.01 Acute respiratory failure with hypoxia; I50.23 Acute on chronic systolic (congestive) heart failure; I11.0 Hypertensive heart disease with heart failure; D51.9 Vitamin B12 deficiency anemia, unspecified; J44.9 Chronic obstructive pulmonary disease, unspecified; I25.10 Atherosclerotic heart disease of native coronary artery without angina pectoris; I25.5 Ischemic cardiomyopathy; E87.6 Hypokalemia; Z72.0 Tobacco use; Z91.14 Patient's other noncompliance with medication regimen
CPT/HCPCS: 36600; 71010; 80048; 80053; 80061; 82550; 82553; 82607; 82746; 82803; 83735; 83880; 84100; 84484; 85025; 85610; 85730; 87081; 90686; 93005; 93306; 93458; 93880; 94060; 94640; 94644; 94660; 94664; 94726; 94729; 96374; 96375; J1940; C1887; C9113; J1644; J1650; J2060; J2250; J2270; J2405; J2930; J3010; J3475; J7030; Q9967

== ENCOUNTER 2018-08-03 08:08 | Emergency (ER) | END 2018-08-03 13:28 ==